=== PATIENT | male | born 1985 | race Asian ===

== ENCOUNTER 2017-02-15 10:57 | Inpatient (IN) | payer MEDICAID ==
--- NOTE | 2017-01-29 22:10 | NUR ---
PATIENT IS CURRENTLY RESTING IN BED I GAVE PATIENT HIS HS SNACK WILL CONTINUE TO MONITOR. Addendum: 02/19/17 at 0006 by Brandi Suarez LVN WRONG DATE ENTRY.
[~2017-02-15] VITALS: Ht 162.6 cm; Wt 86.2 kg
[2017-02-15 11:14] VITALS: BP 145/96
--- NOTE | 2017-02-15 11:25 | NUR ---
Patient ambulated to bed 06.
--- NOTE | 2017-02-15 11:25 | NUR ---
PT PRESENTS TO ER W/C/O COUGH AND INTERMITTENT SOB X3 WEEKS. PT STATES HE SMOKES 1 PACK OF CIGARETTES PER DAY. PT DENIES ANY OTHER MEDICAL HX. DENIES N/V/D; SKIN IS PINK/WARM/DRY; AAOX4 WITH EVEN AND STEADY GAIT; LUNGS CLEAR BL; HR EVEN AND REGULAR; PT DENIES ANY FEVER, CP, SOB, OR COUGH AT THIS TIME; PATIENT STATES HEAD ACHE PAIN OF 10/10 AT THIS TIME; VSS; PATIENT POSITIONED FOR COMFORT; HOB ELEVATED; BEDRAILS UP X2; BED DOWN. ER MD MADE AWARE OF PT STATUS.
--- NOTE | 2017-02-15 11:26 | NUR ---
Dr. Alford evaluating patient at bedside.
[2017-02-15] MEDS ORDERED: ALBUTEROL SULFATE/IPRATROPIU 3 ML SOL IH ONE ×2 (11:30)
--- NOTE | 2017-02-15 11:36 | NUR ---
RT at bedside to give patient breathing treatment and to perform ABG.
--- NOTE | 2017-02-15 11:40 | NUR ---
G DRAWN ON LR WITHOUT INCIDENT AND RESULTS GIVEN TO DR. HUGHES
[2017-02-15] MEDS ORDERED: methylPREDNISolone SS 125 MG/2 ML VIAL IVP ONE (12:20)
[2017-02-15] MEDS ORDERED: MAG SULF 2000 MG/WATER PREMIX 50 ML IV ONE (12:20)
[2017-02-15] MEDS ORDERED: cefTRIAXone 1,000 MG VIAL ONE (12:41)
[2017-02-15] MEDS ORDERED: ONDANSETRON 4 MG/2 ML VIAL IVP PRN (13:25)
[2017-02-15] MEDS ORDERED: MORPHINE SULFATE 2 MG/ML SYR IVP PRN (13:25)
[2017-02-15] MEDS ORDERED: HYDROcodone/APAP 5/325 MG 1 TAB TAB PO PRN (13:25)
[2017-02-15] MEDS ORDERED: ACETAMINOPHEN 325 MG TAB PO PRN (13:25)
[2017-02-15] MEDS ORDERED: ZOLPIDEM 5 MG TAB PO PRN (13:30)
[2017-02-15] MEDS ORDERED: LORazepam 1 MG TAB PO PRN (13:30)
[2017-02-15] MEDS ORDERED: ALBUTEROL SULFATE/IPRATROPIU 3 ML SOL IH PRN (13:30)
--- NOTE | 2017-02-15 13:43 | NUR ---
ELVIN BOX NOT READY FOR REPORT AT THIS TIME DOING WOUND CARE WILL CALL BACK IN 5 MINUTES
--- NOTE | 2017-02-15 13:57 | NUR ---
RECEIVED REPORT FROM THE ER NURSE. WILL BE COMING ON THE FLOOR SOON. WILL GET ROOM READY.
--- NOTE | 2017-02-15 13:57 | NUR ---
Patient will be admitted to care of DR SUAREZ. Admited to TELE. Will go to room 112A. Belongings list completed. Report to ELVIN GILLILAND.
--- NOTE | 2017-02-15 14:15 | NUR ---
PT ARRIVED ON UNIT ON GURNEY ACCOMPANIED BY ER NURSE. PT IS ALERT AND ORIENTED. PT HAS NC O2 AT 2L. V/S WNL. O2 SAT WAS AT 91. INCREASED O2 TO 5L. PT TOLERATING WELL. IV ON R AC 20G SL. PT IS AMBULATORY. NO SIGNS OF DISCOMFORT. SKIN INTACT. NASAL SWAB FOR MRSA DONE. PROVIDED WATER TO PT AND WILL ORDER A SANDWICH. EDUCATED PT REGARDING HARMFUL EFFECTS OF SMOKING, PT VERBALIZED UNDERSTANDING AND WILLINGNESS TO QUIT. WILL CONTINUE TO MONITOR.
[2017-02-15 15:00] VITALS: BP 140/72
[2017-02-15] MEDS: ALBUTEROL SULFATE/IPRATROPIU 3 ML SOL IH SCH ×3 (15:16→23:01)
--- NOTE | 2017-02-15 15:30 | NUR ---
FRIENDS BROUGHT FOOD, PT ATE. TOLERATED WELL. PT RESTING COMFORTABLY WITH FRIENDS AT BEDSIDE. DENIES SOB OR PAIN. CALL LIGHT WITHIN REACH. WILL CONTINUE TO MONITOR PT.
[2017-02-15 16:00] VITALS: BP 129/70
[2017-02-15] MEDS: NACL 0.9% 1,000 ML IV SCH (17:00)
[2017-02-15] MEDS ORDERED: NICOTINE TRANSD SYS 21 MG/24 HR PATCH TD SCH (17:00)
--- NOTE | 2017-02-15 17:24 | NUR ---
PT RESTING COMFORTABLY. REQUESTING MORE ICE WATER FOR DRY COUGH. DENIES PAIN. ALL NEEDS MET THIS TIME. CALL LIGHT WITHIN REACH. WILL CONTINUE TO MONITOR.
--- NOTE | 2017-02-15 19:25 | NUR ---
ENDORSED CARE OF PT TO APARTMENT MAINTENANCE SUPERVISOR NURSE AT BED SIDE IN STABLE CONDITION. PT RESTING IN BED WITH VISITORS.
--- NOTE | 2017-02-15 19:26 | NUR ---
RECEIVED PT IN STABLE CONDITION FROM ELVIN BOX. NO SOB, NO SIGNS OF DISTRESS. PT IS AOX4, AMBULATORY. SKIN IS INTACT. IV TO RT AC 20G PATENT, ASYMPTOMATIC, INTACT, IVF RUNNING. PT ON 4L 02 NC. VS STABLE. PT DENIES PAIN AT THIS TIME. PLAN OF CARE DISCUSSED WITH PT. SAFETY MEASURES IN PLACE. CALL LIGHT WITHIN REACH. WILL CONTINUE TO MONITOR. Addendum: 02/16/17 at 0125 by Elvira Pineda RN HR LING
[2017-02-15] MEDS: BUDESONIDE 0.25 MG/2 ML NEBU INH SCH (19:28)
[2017-02-15 20:00] VITALS: BP 136/72
[2017-02-15] MEDS ORDERED: ACETYLCYSTEINE 10% (100 MG/ML) 100 MG/ML VIAL INH PRN (20:35)
[2017-02-15] MEDS ORDERED: methylPREDNISolone SS 80 MG in WATER STERILE 1 ML IV SCH (21:00)
[2017-02-15] MEDS: MONTELUKAST SODIUM 10 MG TAB PO SCH (21:01)
[2017-02-15] MEDS: methylPREDNISolone SS 125 MG/2 ML VIAL IVP SCH (21:01)
--- NOTE | 2017-02-15 21:01 | NUR ---
PT TOLERATED DUE MEDS WELL. PT ON 4L O2 NC. FAMILY AT BEDSIDE. NO SOB, NO SIGNS OF DISTRESS. IV SITE ASYMPTOMATIC, INTACT, PATENT, IVF RUNNING. PT DENIES PAIN AT THIS TIME. PLAN OF CARE DISCUSSED WITH PT. SAFETY MEASURES IN PLACE. CALL LIGHT WITHIN REACH. WILL CONTINUE TO MONITOR.
[2017-02-16] VITALS: BP 138/69
--- NOTE | 2017-02-16 00:05 | NUR ---
HR TACHY, OTHER VS WNL ON ROOM AIR. NO SOB, NO SIGNS OF DISTRESS. IV SITE ASYMPTOMATIC, INTACT, PATENT, IVF RUNNING. PT DENIES PAIN OR SOB AT THIS TIME. PLAN OF CARE DISCUSSED WITH PT. SAFETY MEASURES IN PLACE. CALL LIGHT WITHIN REACH. WILL CONTINUE TO MONITOR.
[2017-02-16] MEDS: NACL 0.9% 1,000 ML IV SCH ×4 (02:02→21:20)
--- NOTE | 2017-02-16 02:14 | NUR ---
PT C/O SOB, RT PAGED, REQUESTED BREATHING TREATMENT AND OXIMIZER FOR PT. RT STATED THEY WILL COME AROUND 3. PLACED PT ON SIMPLE FACE MASK AT 6 LPM, O2 SAT IMPROVED. WILL CONTINUE TO MONITOR PT.
[2017-02-16] MEDS: ALBUTEROL SULFATE/IPRATROPIU 3 ML SOL IH SCH ×6 (02:38→23:12)
--- NOTE | 2017-02-16 02:38 | NUR ---
RT AT BEDSIDE, PLACED PT ON O2 6 LPM BY OXIMIZER, PTS O2 SAT IMPROVING. RT TO GIVE PT BREATHING TREATMENT AT THIS TIME.
--- NOTE | 2017-02-16 03:40 | NUR ---
HR TACHY, OTHER VS WNL. PT ON 6LPM OXIMIZER. NO SOB, NO SIGNS OF DISTRESS. IV SITE ASYMPTOMATIC, INTACT, PATENT, IVF RUNNING. PT DENIES PAIN AT THIS TIME. PLAN OF CARE DISCUSSED WITH PT. SAFETY MEASURES IN PLACE. CALL LIGHT WITHIN REACH. WILL CONTINUE TO MONITOR.
[2017-02-16 04:00] VITALS: BP 117/64
[2017-02-16] MEDS: methylPREDNISolone SS 125 MG/2 ML VIAL IVP SCH ×2 (04:15→12:42)
--- NOTE | 2017-02-16 06:26 | NUR ---
PT ASLEEP IN BED. PT ON 6LPM OXIMIZER. NO SOB, NO SIGNS OF DISTRESS. IV SITE ASYMPTOMATIC, INTACT, PATENT, IVF RUNNING. SAFETY MEASURES IN PLACE. CALL LIGHT WITHIN REACH. WILL CONTINUE TO MONITOR.
[2017-02-16] MEDS: BUDESONIDE 0.25 MG/2 ML NEBU INH SCH ×2 (06:51→19:42)
--- NOTE | 2017-02-16 07:26 | NUR ---
ENDORSED PT IN STABLE CONDITION TO ELVIN LITTLE. ALL NEEDS HAVE BEEN MET AT THIS TIME.
--- NOTE | 2017-02-16 07:41 | NUR ---
RECEIVED REPORT FROM AGNIESZKA OCONNOR FOR CONTINUITY OF CARE. PATIENT AWAKE A/OX4. O2 MAXIMIZER WITH 6L/NC . DENIES ANY PAIN. IV SITE RT AC GAUGE 20 INTACT AND PATENT. IVF INFUSING WELL. PLAN OF CARE DISCUSSED WITH THE PATIENT VITALS STABLE WILL CONTINUE TO MONITOR.
--- NOTE | 2017-02-16 07:53 | NUR ---
PATIENT HAS BEEN SCREENED AND CATEGORIZED LOW NUTRITION RISK. PATIENT WILL BE SEEN WITHIN 7 DAYS OF ADMISSION. 02/22/[address] Addendum: 02/17/17 at [address] DUE TO CHANGE IN PATIENT DIET, PATIENT HAS BEEN RESCREENED AND RECATEGORIZED MODERATE NUTRITION RISK. PATIENT WILL BE SEEN WITHIN 3-5 DAYS OF ADMISSION. 02/18/17-02/20/[address]
[2017-02-16 08:16] VITALS: BP 135/67
--- NOTE | 2017-02-16 09:00 | NUR ---
DUE MEDS GIVEN TOLERATED WELL. AMBULATE TO BATHROOM , SELF MORNING CARE GIVEN AT THIS TIME.
[2017-02-16] MEDS: NICOTINE TRANSD SYS 21 MG/24 HR PATCH TD SCH (09:16)
[2017-02-16] MEDS: DOCUSATE SODIUM 100 MG GELCAP PO SCH (09:17)
[2017-02-16 11:53] VITALS: BP 124/65
--- NOTE | 2017-02-16 12:00 | NUR ---
LUNCH SERVED GOOD APPETITE, NO DISTRESS NOTED AT THIS TIME.
--- NOTE | 2017-02-16 14:18 | NUR ---
RELAXED AND RESTING NO DISTRESS NOTED AT THIS TIME.
[2017-02-16 16:00] VITALS: BP 114/66
--- NOTE | 2017-02-16 16:00 | NUR ---
RESTING NO DISTRESS NOTED VITALS STABLE.
[2017-02-16] MEDS ORDERED: DEXTROSE 50% 50 ML SYR IVP PRN (17:50)
--- NOTE | 2017-02-16 18:27 | NUR ---
DINNER SERVED GOOD APPETITE , SAFETY MAINTAINED CALL LIGHT IN REACH
--- NOTE | 2017-02-16 19:00 | NUR ---
RECEIVED PT FROM ANABEL OCONNOR PT IS AAOX4 AMBULATORY ,RT IS HERE AND GIVE BREATHING TX PT ON TELEMETRY ST ,IV ON RT AC INFUSING WELL ON OXYMIZER 6 LTS/MINTS INITIAL ASSESSMENT DONE
[2017-02-16 20:00] VITALS: BP 127/65
[2017-02-16] MEDS ORDERED: methylPREDNISolone SS 40 MG in WATER STERILE 1 ML IV SCH (21:00)
[2017-02-16] MEDS: methylPREDNISolone SS 40 MG/ML VIAL IVP SCH (21:12)
[2017-02-16] MEDS: MONTELUKAST SODIUM 10 MG TAB PO SCH (21:12)
[2017-02-16] MEDS: BLOOD GLUCOSE MONITORING 1 DEV DEV FS SCH (21:15)
[2017-02-16] MEDS: INSULIN LISPRO SLIDING SCALE 100 UNITS/ML VIAL SUBQ PRN (21:16)
--- NOTE | 2017-02-16 21:30 | NUR ---
BLOOD SUGAR TEST 242 COVERAGE WITH 4 UNITS HUMALOG
[2017-02-17] VITALS: BP 117/77
--- NOTE | 2017-02-17 00:52 | NUR ---
PT SLEEPING WELL NOT DISTRESS NOTED ON TELEMETRY ST
[2017-02-17] MEDS: ALBUTEROL SULFATE/IPRATROPIU 3 ML SOL IH SCH ×6 (03:40→23:09)
[2017-02-17 04:00] VITALS: BP 96/51
--- NOTE | 2017-02-17 04:00 | NUR ---
SPONGE BATH IS GIVEN LINEN CHANGED PT RESTING ON BED SR ON TELEMETRY NOT SOB NOTED
[2017-02-17] MEDS: methylPREDNISolone SS 40 MG/ML VIAL IVP SCH ×2 (05:27→12:13)
[2017-02-17] MEDS: NACL 0.9% 1,000 ML IV SCH ×3 (05:51→23:43)
[2017-02-17] MEDS: BLOOD GLUCOSE MONITORING 1 DEV DEV FS SCH ×4 (05:56→20:55)
[2017-02-17] MEDS: INSULIN LISPRO SLIDING SCALE 100 UNITS/ML VIAL SUBQ PRN ×4 (05:59→20:55)
--- NOTE | 2017-02-17 06:29 | NUR ---
BLOOD SUGAR TEST 155 COVERAGE WITH2 UNITS REG INSULIN
--- NOTE | 2017-02-17 07:00 | NUR ---
PT AWAKE ALERT AND ORIENTED X4, NO SIGNS OF ACUTE DISTRESS, BREATHING EVEN AND UNLABORED BILATERALLY ON OXYMIZER 6L OXYGEN, ABDOMEN SOFT AND FLAT WITH BOWEL SOUNDS ACTIVE IN ALL FOUR QUADRANTS, BOWEL AND BLADDER CONTINENCE, AMBULATORY, SKIN INTACT, IV PATENT NO REDNESS, NO COMPLAINTS OF PAIN, BED IN LOW POSITION WITH BILATERAL HALF SIDE RAILS UP, CALL LIGHT WITHIN REACH.
[2017-02-17] MEDS: BUDESONIDE 0.25 MG/2 ML NEBU INH SCH ×2 (07:17→18:55)
--- NOTE | 2017-02-17 07:18 | NUR ---
AWAKE AND ALERT PATIENT C/O NASAL DRYNESS WITH SUPPLEMENTAL OXYGEN USE POST THERAPY ADDED HUMIDIFIER
[2017-02-17 08:00] VITALS: BP 125/67
[2017-02-17] MEDS: NICOTINE TRANSD SYS 21 MG/24 HR PATCH TD SCH ×2 (08:49→08:54)
[2017-02-17] MEDS: DOCUSATE SODIUM 100 MG GELCAP PO SCH (08:49)
[2017-02-17] MEDS: metFORMIN 500 MG TAB PO SCH (08:50)
[2017-02-17] MEDS ORDERED: AZITHROMYCIN 250 MG TAB PO SCH (09:00)
--- NOTE | 2017-02-17 09:20 | NUR ---
RECEIVED NEW ORDERS FROM DR. RAMON, CONSULT FOR DR. CRANE AND ENCOURAGE AMBULATION. PT MADE AWARE. NOTED AND CARRIED OUT.
--- NOTE | 2017-02-17 10:03 | NUR ---
RECEIVED NEW ORDERS FROM DR. RAMON, WILL CARRY OUT.
--- NOTE | 2017-02-17 11:18 | NUR ---
STAFF THERAPIST WITH RESPIRATORY STUDENT/[facility] ([facility]) DURING HHN THERAPY
[2017-02-17 16:00] VITALS: BP 126/73
--- NOTE | 2017-02-17 18:38 | NUR ---
PT AWAKE AND ALERT, NO SIGNS OF ACUTE DISTRESS. BREATHING EVEN AND UNLABORED, DENIES PAIN. BED IN LOW POSITION WITH BILATERAL HALF SIDE RAILS UP, CALL LIGHT WITHIN REACH. WILL ENDORSE TO HYDRATION PLANT OPERATOR NURSE FOR CONTINUITY OF CARE.
--- NOTE | 2017-02-17 19:30 | NUR ---
RECEIVED REPORT FROM DAY RN AT BEDSIDE, PATIENT IS AAOX4 RESTING IN BED, PATIENT RECEIVED BREATHING TX AND IS NOW ON 6L OXYGEN VIA OXYMIZER. PATIENT STATES HE HAS MILD SOB BUT FEELS OKAY. DENIES PAIN AT THIS TIME. IV TO RAC PATENT AND INTACT WITH IVF INFUSING WELL, SKIN INTACT, DISCUSSED PLAN OF CARE WITH PATIENT, PATIENT VERBALIZED UNDERSTANDING. SAFETY MEASURES CHECKED, CALL LIGHT WITHIN REACH. WILL CONTINUE TO MONITOR. VITAL SIGNS STABLE.
[2017-02-17] MEDS: MONTELUKAST SODIUM 10 MG TAB PO SCH (20:51)
--- NOTE | 2017-02-17 20:55 | NUR ---
PM MEDS ADMINISTERED, PATIENT TOLERATED WELL, BS CHECK 164, NO SOB OR SIGN OF DISTRESS AT THIS TIME, CALL LIGHT WITHIN REACH. WILL CONTINUE TO MONITOR.
[2017-02-18] VITALS: BP 115/59
--- NOTE | 2017-02-18 | NUR ---
VITAL SIGNS STABLE, PATIENT RESTING IN BED AWAKE, NO SOB OR SIGN OF DISTRESS AT THIS TIME, CALL LIGHT WITHIN REACH. WILL CONTINUE TO MONITOR.
--- NOTE | 2017-02-18 02:30 | NUR ---
PATIENT SLEEPING, NO SOB OR SIGN OF DISTRESS, CALL LIGHT WITHIN REACH WILL CONTINUE TO MONITOR.
[2017-02-18] MEDS: ALBUTEROL SULFATE/IPRATROPIU 3 ML SOL IH SCH ×6 (03:13→23:00)
--- NOTE | 2017-02-18 04:35 | NUR ---
PATIENT SLEEPING, NO SOB OR SIGN OF DISTRESS AT THIS TIME, CALL LIGHT WITHIN REACH. WILL CONTINUE TO MONITOR.
[2017-02-18] MEDS: BLOOD GLUCOSE MONITORING 1 DEV DEV FS SCH ×4 (06:33→20:32)
[2017-02-18] MEDS: BUDESONIDE 0.25 MG/2 ML NEBU INH SCH ×2 (07:12→19:24)
--- NOTE | 2017-02-18 07:24 | NUR ---
ENDORSED PATIENT TO DAY RN AT BEDSIDE, PATIENT IN STABLE CONDITION.
[2017-02-18] MEDS ORDERED: methylPREDNISolone SS 40 MG/ML VIAL IVP SCH (07:30)
[2017-02-18 08:00] VITALS: BP 126/77
--- NOTE | 2017-02-18 08:00 | NUR ---
RECEIVED PT ON ROOM AIR, SPO2 90-91% PT PLACED ON 3L NASAL CANNULA. BEDSIDE AND AWARE .
[2017-02-18] MEDS: NACL 0.9% 1,000 ML IV SCH ×2 (08:03→13:58)
[2017-02-18] MEDS: metFORMIN 500 MG TAB PO SCH (08:35)
[2017-02-18] MEDS: DOCUSATE SODIUM 100 MG GELCAP PO SCH (08:35)
[2017-02-18] MEDS: AZITHROMYCIN 250 MG TAB PO SCH (08:36)
[2017-02-18] MEDS: NICOTINE TRANSD SYS 21 MG/24 HR PATCH TD SCH (08:52)
[2017-02-18] MEDS: INSULIN LISPRO SLIDING SCALE 100 UNITS/ML VIAL SUBQ PRN ×3 (11:34→20:36)
[2017-02-18] MEDS: methylPREDNISolone SS 40 MG/ML VIAL IVP SCH ×2 (12:04→20:59)
[2017-02-18 15:43] VITALS: BP 122/68
--- NOTE | 2017-02-18 18:55 | NUR ---
ALERT AND AWAKE, NO SIGNS OF ACUTE DISTRESS, ENDORSED TO WAITER NURSE FOR CONTINUITY OF CARE.
--- NOTE | 2017-02-18 19:00 | NUR ---
PATIENT IS CURRENTLY AWAKE ALERT ORIENTED RESTING IN BED FAMILY AT BEDSIDE PATIENT DENIES PAIN AND DISCOMFORT AT THIS TIME.PATIENT IS ABOUT TO GET A BREATHING TREATMENT.CALL LIGHT WITHIN REACH WILL CONTINUE TO MONITOR.
--- NOTE | 2017-02-18 20:00 | NUR ---
Patient's Plan of Care was discussed and reviewed with CONTRACT DRIVER: MOE BAUTISTA
[2017-02-18] MEDS: MONTELUKAST SODIUM 10 MG TAB PO SCH (20:22)
--- NOTE | 2017-02-18 22:10 | NUR ---
PATIENT IS CURRENTLY RESTING IN BED I GAVE PATIENT HIS HS SNACK WILL CONTINUE TO MONITOR.
--- NOTE | 2017-02-18 22:22 | NUR ---
MD YARBROUGH CAME AND WAS GIVEN AN UPDATE ON THE PATIENT AND HE MADE ROUNDS AND SAW THE PATIENT.
[2017-02-19 00:32] VITALS: BP 115/72
--- NOTE | 2017-02-19 00:32 | NUR ---
PATIENT IS CURRENTLY AWAKE ON HIS PHONE SMILING,IVF INFUSING WELL IV SITE PATENT NEEDS MET.PATIENT DENIES PAIN AND DISCOMFORT.CALL LIGHT WITHIN REACH WILL CONTINUE TO MONITOR.
[2017-02-19] MEDS: NACL 0.9% 1,000 ML IV SCH ×3 (01:43→17:30)
--- NOTE | 2017-02-19 02:54 | NUR ---
PATIENT DOING WELL RESTING IN BED CALL LIGHT WITHIN REACH WILL CONTINUE TO MONITOR.
[2017-02-19] MEDS: ALBUTEROL SULFATE/IPRATROPIU 3 ML SOL IH SCH ×6 (03:53→23:08)
--- NOTE | 2017-02-19 04:05 | NUR ---
PATIENT IS CURRENTLY SLEEPING ON AN OFF GETTING A BREATHING TREATMENT WILL CONTINUE TO MONITOR.CALL LIGHT WITHIN REACH WILL CONTINUE TO MONITOR.
[2017-02-19] MEDS: methylPREDNISolone SS 40 MG/ML VIAL IVP SCH ×3 (05:40→20:23)
--- NOTE | 2017-02-19 06:34 | NUR ---
PATIENT IS CURRENTLY AWAKE ALERT RESTING IN BED.PATIENT DENIES PAIN AND DISCOMFORT.IVF INFUSING WELL IV SITE PATENT.WILL CONTINUE TO MONITOR.
[2017-02-19] MEDS: BLOOD GLUCOSE MONITORING 1 DEV DEV FS SCH ×4 (06:39→21:30)
[2017-02-19] MEDS: INSULIN LISPRO SLIDING SCALE 100 UNITS/ML VIAL SUBQ PRN ×4 (06:41→21:48)
--- NOTE | 2017-02-19 06:44 | NUR ---
PATIENT AMBULATES WELL TO THE BATHROOM AND BACK TO BED AND ENCOURAGED TO USE INCENTIVE SPIROMETER BREATHING EXERCISES PATIENT VERBALIZES UNDERSTANDING.
[2017-02-19] MEDS: BUDESONIDE 0.25 MG/2 ML NEBU INH SCH ×2 (07:04→19:13)
--- NOTE | 2017-02-19 07:28 | NUR ---
PATIENT STABLE REPORT ENDORSED AT BEDSIDE TO ELVIN WALLACE.
--- NOTE | 2017-02-19 07:29 | NUR ---
RECEIVED PT AWAKE AND SITTING ON BED WATCHING TV, AAOX4 WITH O2 AT 4LPM VIA NC, SKIN IS INTACT. WITH IV ACCESS AT LEFT WRIST G22 INFUSING FLUIDS WELL. DISCUSSED PLAN OF CARE, PT VERBALIZED UNDERSTANDING. SAFETY PRECAUTIONS ENFORCED. CALL LIGHT WITHIN REACH, WILL CONTINUE TO MONITOR
[2017-02-19 08:00] VITALS: BP 128/70
[2017-02-19] MEDS: metFORMIN 500 MG TAB PO SCH (08:55)
[2017-02-19] MEDS: NICOTINE TRANSD SYS 21 MG/24 HR PATCH TD SCH (09:00)
[2017-02-19] MEDS: DOCUSATE SODIUM 100 MG GELCAP PO SCH (09:00)
[2017-02-19] MEDS: AZITHROMYCIN 250 MG TAB PO SCH (09:02)
--- NOTE | 2017-02-19 09:08 | NUR ---
PT REFUSED NICOTINE PATCH. EDUCATED RE: BENEFITS OF NICOTINE PATCH, PT STILL DECLINED
--- NOTE | 2017-02-19 11:20 | NUR ---
PT AWAKE SITTING ON BED WATCHING TV. NO COMPLAINTS AT THIS TIME. ALL NEEDS ATTENDED, WILL CONTINUE TO MONITOR.
--- NOTE | 2017-02-19 11:55 | NUR ---
02/19/17 RD INITIAL ASSESSMENT COMPLETED PLEASE REFER TO NUTRITION ASSESSMENT UNDER CARE ACTIVITY FOR ESTIMATED NUTRITIONAL NEEDS. RD RECOMMENDATIONS: 1. CONTINUE ON CCHO 60 GM DIET APPROPRIATE. 2. RD WILL F/U 5-7 DAYS; LOW RISK. JUSTUS NARAYANAN MS, RDN
--- NOTE | 2017-02-19 13:40 | NUR ---
PT ASLEEP, NO S/S OF DISTRESS NOTED. WILL CONTINUE TO MONITOR.
--- NOTE | 2017-02-19 15:21 | NUR ---
PT ASLEEP, NO S/S OF RESPIRATORY DISTRESS NOTED. CALL LIGHT WITHIN REACH, WILL CONTINUE TO MONITOR.
[2017-02-19 16:00] VITALS: BP 123/74
--- NOTE | 2017-02-19 17:45 | NUR ---
PT ASLEEP BUT EASILY AROUSABLE. IV FLUID BAG CHANGED. WILL CONTINUE TO MONITOR.
--- NOTE | 2017-02-19 19:35 | NUR ---
PT ENDORSED TO NIGHT NURSE IN STABLE CONDITION FOR CONTINUITY OF CARE
--- NOTE | 2017-02-19 19:36 | NUR ---
PATIENT IS CURRENTLY AWAKE ALERT SITTING UP IN BED.VITALS SIGNS STABLE 02SAT 100% PATIENT GOT A BREATHING TREATMENT EARLIER.PATIENT DENIES ANY PAIN.NEEDS MET WILL CONTINUE TO MONITOR.CALL LIGHT WITHIN REACH.
--- NOTE | 2017-02-19 19:56 | NUR ---
Patient's Plan of Care was discussed and reviewed with STATION ATTENDANT: MOE Tate
[2017-02-19 20:30] VITALS: BP 117/65
[2017-02-19] MEDS: MONTELUKAST SODIUM 10 MG TAB PO SCH (20:37)
--- NOTE | 2017-02-19 20:37 | NUR ---
EDUCATION GIVEN ON ROUTINE MEDICATIONS PT VERBALIZES UNDERSTANDING AND TOOK HIS MEDS.
--- NOTE | 2017-02-19 21:51 | NUR ---
PATIENT CURRENTLY RESTING IN BED AT THIS TIME LISTENING TO MUSIC NEEDS MET.PT COMFORTABLE HS SNACK HAS BEEN GIVEN TO THE PATIENT.
[2017-02-20 00:05] VITALS: BP 124/81
--- NOTE | 2017-02-20 00:15 | NUR ---
PATIENT IS CURRENTLY AWAKE RESTING IN BED LISTENING TO MUSIC.IVF INFUSING WELL IV SITE PATENT NEEDS MET.WILL CONTINUE TO MONITOR.CALL LIGHT WITHIN REACH.
[2017-02-20] MEDS: NACL 0.9% 1,000 ML IV SCH ×2 (02:16→10:33)
--- NOTE | 2017-02-20 02:18 | NUR ---
PATIENT SLEEPING IN BED,NO DISTRESS WILL CONTINUE TO MONITOR URINAL EMPTIED.CALL LIGHT WITHIN REACH.
[2017-02-20] MEDS: ALBUTEROL SULFATE/IPRATROPIU 3 ML SOL IH SCH ×4 (02:24→14:49)
--- NOTE | 2017-02-20 04:20 | NUR ---
PATIENT SLEEPING COMFORTABLY IN BED IN NO DISTRESS.
[2017-02-20] MEDS: methylPREDNISolone SS 40 MG/ML VIAL IVP SCH ×2 (04:39→12:53)
[2017-02-20] MEDS: BLOOD GLUCOSE MONITORING 1 DEV DEV FS SCH ×2 (06:08→11:37)
[2017-02-20] MEDS: INSULIN LISPRO SLIDING SCALE 100 UNITS/ML VIAL SUBQ PRN ×2 (06:25→11:40)
--- NOTE | 2017-02-20 06:30 | NUR ---
PATIENT SLEEPING IN NO DISTRESS IVF INFUSING WELL IV SITE PATENT.CALL LIGHT WITHIN REACH WILL CONTINUE TO MONITOR.
--- NOTE | 2017-02-20 07:10 | NUR ---
RECEIVED REPORT AT BEDSIDE BY NIGHT NURSE. PT IS AAOX4. PT IS CURRENTLY RECEIVING A BREATHING TX. PT SHOWS NO S/S OF DISTRESS. PT DENIES PAIN. PT SKIN IS INTACT. IV NOTED ON THE L HAND PATENT AND INTACT. WILL CONTINUE TO MONITOR.
[2017-02-20] MEDS: BUDESONIDE 0.25 MG/2 ML NEBU INH SCH (07:17)
--- NOTE | 2017-02-20 07:20 | NUR ---
PT IS CURRENTLY RESTING IN BED STABLE REPORT ENDORSED TO ELVIN CARBAJAL AND ELVIN RYAN.
[2017-02-20 08:00] VITALS: BP 119/78
--- NOTE | 2017-02-20 08:40 | NUR ---
ADMINISTERED SCHEDULED MEDICATIONS. PT TOLERATED WELL. PT ON 4L HUMIDIFIED AIR VIA NASAL CANNULA. PT SHOWS NO S/S OF DISTRESS. PT DOES NOT HAVE SOB. WILL CONTINUE TO MONITOR.
[2017-02-20] MEDS: AZITHROMYCIN 250 MG TAB PO SCH (08:46)
[2017-02-20] MEDS: DOCUSATE SODIUM 100 MG GELCAP PO SCH (08:46)
[2017-02-20] MEDS: metFORMIN 500 MG TAB PO SCH (08:46)
[2017-02-20] MEDS: NICOTINE TRANSD SYS 21 MG/24 HR PATCH TD SCH ×2 (08:46→08:53)
--- NOTE | 2017-02-20 11:15 | NUR ---
PT IN ROOM WITH RT AT BEDSIDE. PT IS CURRENTLY GETTING A BREATHING TX. PT IS TOLERATING WELL.
--- NOTE | 2017-02-20 13:00 | NUR ---
ADMINISTERED SCHEDULED MEDICATION. PT ON ROOM AIR AND SHOWS NO S/S OF DISTRESS. PT RESTING WATCHING TV. WILL CONTINUE TO MONITOR.
[2017-02-20] MEDS ORDERED: SINGULAIR10 MG PO (13:26)
[2017-02-20] MEDS ORDERED: METFORMIN HCL500 MG PO (13:26)
[2017-02-20] MEDS ORDERED: AZITHROMYCIN250 MG PO (13:26)
[2017-02-20] MEDS ORDERED: PULMICORT90 MCG/Act IH (13:26)
[2017-02-20] MEDS ORDERED: PROVENTIL HFA M18 GM INH (13:26)
--- NOTE | 2017-02-20 15:30 | NUR ---
PT HAS BEEN DISCHARGED. ALL PAPERWORK SIGNED. ALL QUESTIONS ANSWERED. ALL BELONGINGS AND PRESCRIPTIONS IN PT POSSESSION. IV DISCONTINUED INTACT. WRISTBANDS REMOVED. PT AMB OFF UNIT WITH STEADY GAIT WITH FAMILY MEMBER AT SIDE. PT IN STABLE CONDITION.
== END 2017-02-20 15:30 | disposition home or self-care (01) | DRG 139 ==
LOC: MED 10:57 → MTU 13:23
PROVIDERS: ADMIT Family Medicine; ATTEND Family Medicine
DX: J18.9 Pneumonia, unspecified organism (principal); J96.21 Acute and chronic respiratory failure with hypoxia; N17.0 Acute kidney failure with tubular necrosis; J44.0 Chronic obstructive pulmonary disease with (acute) lower respiratory infection; J45.901 Unspecified asthma with (acute) exacerbation; E11.65 Type 2 diabetes mellitus with hyperglycemia; J44.1 Chronic obstructive pulmonary disease with (acute) exacerbation; E86.0 Dehydration; E78.5 Hyperlipidemia, unspecified; J20.9 Acute bronchitis, unspecified; E66.9 Obesity, unspecified; F17.219 Nicotine dependence, cigarettes, with unspecified nicotine-induced disorders; D72.829 Elevated white blood cell count, unspecified; Z68.32 Body mass index [BMI] 32.0-32.9, adult; Z71.3 Dietary counseling and surveillance; Z71.6 Tobacco abuse counseling

== ENCOUNTER 2021-07-13 13:24 | Inpatient (IN) | payer MEDICAID, SELFPAY ==
[~2021-07-13] VITALS: Ht 172.7 cm; Wt 85.3 kg
[~2021-07-13 13:24] MED LIST: ALBU0.0912 INH; AZIT250T11 PO; BUDE90PO IH; METF-988 PO; MONT10TA35 PO
[2021-07-13 13:25] VITALS: BP 123/78
--- NOTE | 2021-07-13 13:25 | NUR ---
36 YO MALE BIBS C/O WHEEZING, DIFFICULTY BREATHING X1WEEK. PLACED ON MONITOR AND DESAT TO 79%, PLACED ON 2L NC, O2 SAT NOW 95%. PATIENT PRESENTS LABORED BREATHING AND DIAPHORETIC. LUNG SOUNDS INS/EXP WHEEZING. PATIENT STATES HE HAS BEEN ADM PREVIOUSLY FOR ASTHMA EXACERBATION. A&OX4, PLACED ON MONITOR FOR CONT OBSERVATION. PMH: ASTHMA, DM NKDA
--- NOTE | 2021-07-13 13:35 | NUR ---
MD AT BEDSIDE EVALUATING PATIENT.
[2021-07-13] MEDS ORDERED: ALBUTEROL SULFATE/IPRATROPIU 3 ML SOL IH ONE ×3 (13:41→13:55)
--- NOTE | 2021-07-13 13:42 | NUR ---
HHN THERAPY AND RESPIRATORY DRUG GIVEN ORDERED
[2021-07-13] MEDS ORDERED: methylPREDNISolone SS 125 MG in WATER STERILE 2 ML IV ONE (13:50)
--- NOTE | 2021-07-13 13:53 | NUR ---
POST HHN THERAPY PLACED BACK ON SUPPLEMENTAL OXYGEN AT 3 LPM VIA KYLIE HOOK/RN NOTIFIED
[2021-07-13] MEDS ORDERED: methylPREDNISolone SS 125 MG/2 ML VIAL ONE (13:59)
[2021-07-13] MEDS ORDERED: WATER STERILE 10 ML MC ONE (13:59)
--- NOTE | 2021-07-13 14:15 | NUR ---
SOLUMEDROL GIVEN IVP PER MD ORDER AT THIS TIME.
[2021-07-13] MEDS ORDERED: ALBUTEROL 0.083% 2.5 MG/3 ML NEBU INH ONE (14:30)
--- NOTE | 2021-07-13 14:31 | NUR ---
FOLLOW UP HHN THERAPY AND RESPIRATORY DRUGS GIVEN ORDERED ENCOURAGED INTERMITTENT DEEP BREATHING DURING THERAPY
[2021-07-13] MEDS ORDERED: PRED20TA5 PO (14:38)
[2021-07-13] MEDS ORDERED: AZIT250T4 PO (14:38)
[2021-07-13] MEDS ORDERED: ALBU0.0912 IH (14:38)
--- NOTE | 2021-07-13 16:10 | NUR ---
ATTEMPTED TO DC PATIENT BUT UNSTABLE FOR DISCHARGE.
[2021-07-13 16:52] LABS: BASOPHILS % (AUTO) 0.3 % (0.0-2.0); EOSINOPHILS # (AUTO) 0.1 K/uL (0-0.4); EOSINOPHILS % (AUTO) 1.1 % (0.0-4.0); HEMATOCRIT 48.5 % (36-52); HEMOGLOBIN 15.7 g/dL (12.0-18.0); LYMPHOCYTES # (AUTO) 0.8 K/uL (2.0-11.5); LYMPHOCYTES % (AUTO) 6.6 % (20.5-51.1); MEAN CORPUSCULAR HEMOGLOBIN 25 pg (27-31); MEAN CORPUSCULAR HGB CONC 33 g/dL (33-37); MONOCYTES # (AUTO) 0.1 K/uL (0.8-1.0); MONOCYTES % (AUTO) 1.2 % (1.7-9.3); NEUTROPHILS # (AUTO) 10.4 K/uL (1.8-7.7); NEUTROPHILS % (AUTO) 90.8 % (42.2-75.2); PLATELET COUNT (AUTO) 337 K/uL (140-450); RED BLOOD CELL COUNT(AUTO) 6.22 MIL/uL (4.20-6.10); RED CELL DISTRIBUTION WIDTH 14.1 % (11.6-13.7); WHITE BLOOD COUNT (AUTO) 11.4 K/uL (4.8-10.8)
[2021-07-13 17:14] LABS: ALBUMIN 3.7 g/dL (3.4-5.0); CARBON DIOXIDE 22.2 mmol/L (21-32); CREATININE 0.8 mg/dL (0.6-1.3); POTASSIUM 4.2 mmol/L (3.5-5.1); TOTAL BILIRUBIN 0.8 mg/dL (0.0-1.0)
--- NOTE | 2021-07-13 18:21 | NUR ---
YANI BIANCHI, INFLUENZA A/B, RSV SAMPLES COLLECTED AND WALKED TO LAB.
[2021-07-13] MEDS ORDERED: HYDROcodone/APAP 7.5/325 MG 1 TAB PO PRN (19:10)
[2021-07-13] MEDS ORDERED: ZOLPIDEM 5 MG TAB PO PRN (19:10)
[2021-07-13] MEDS ORDERED: ACETAMINOPHEN 325 MG TAB PO PRN (19:10)
[2021-07-13] MEDS ORDERED: ALBUTEROL SULFATE/IPRATROPIU 3 ML SOL IH PRN (19:10)
[2021-07-13] MEDS ORDERED: POTASSIUM CHLORIDE 10 MEQ TABER PO PRN (19:10)
[2021-07-13] MEDS ORDERED: guaiFENesin DM 200/20 MG-10 ML 10 ML UDC PO PRN (19:10)
[2021-07-13] MEDS ORDERED: DOCUSATE SODIUM 100 MG GELCAP PO PRN (19:10)
[2021-07-13] MEDS ORDERED: ONDANSETRON 4 MG/2 ML VIAL IM/IVP PRN (19:10)
[2021-07-13] MEDS ORDERED: FAMOTIDINE 20 MG/2 ML VIAL IV SCH (19:15)
--- NOTE | 2021-07-13 19:30 | NUR ---
REPORT AND CONTINUATION OF CARE GIVEN TO KALI ELVIN
[2021-07-13] MEDS ORDERED: cefTRIAXone 1,000 MG VIAL ONE (19:35)
[2021-07-13 19:59] LABS: CHOL/HDL RATIO 6.4 (1-4.5); FREE T4 (FREE THYROXINE) 1.24 ng/dL (0.76-1.46); MAGNESIUM 1.9 mg/dL (1.8-2.4); PHOSPHORUS 3.9 mg/dL (2.5-4.9); THYROID STIMULATING HORMONE 0.76 uIU/mL (0.34-3.74)
--- NOTE | 2021-07-13 20:00 | NUR ---
PATIENT SITTING IN BED LOCKED IN LOWEST POSITION W X2 SIDERAILS UP FOR PATIENT SAFETY. PATIENT REPORTS SOB. PATIENT DENIES ANY PAIN OR OTHER SYMPTOMS. PATIENT PRESENTS TACHYPNEIC W LABORED BREATHING. WHEEZING AUSCULTATED THROUGHOUT LUNG BOATENG. PATIENT CONNECTED TO MONITOR W VSS. PATIENT ON 3L NC O2 SAT 95%. PATIENT ABLE TO SPEAK IN FULL SENTENCES. NAD NOTED, WILL CONTINUE TO MONITOR.
--- NOTE | 2021-07-13 20:40 | NUR ---
RT AT BEDSIDE FOR PATIENT BREATHING TREATMENT.
--- NOTE | 2021-07-13 20:55 | NUR ---
PATIENT AMBULATED TO BATHROOM W STEADY GAIT.
[2021-07-13 20:56] LABS: PROTHROMBIN TIME 9.6 secs (10.8-13.4)
[2021-07-13 21:28] LABS: APPEARANCE,URINE CLEAR (CLEAR); BILIRUBIN,URINE NEGATIVE (NEGATIVE); BLOOD, URINE TRACE-I (NEGATIVE); COLOR,URINE YELLOW (YELLOW); LEUKOCYTE ESTERASE ,URINE NEGATIVE (NEGATIVE); NITRITE, URINE NEGATIVE (NEGATIVE); PH,URINE 5.5 (5.0-9.0); UGLUCOSE 3+ (NEGATIVE)
[2021-07-13 21:48] LABS: BARBITURATE, URINE NEGATIVE ng/ml (NEG <=200); BENZODIAZEPINE, URINE NEGATIVE ng/mL (NEG <=200); CANNABINOID, URINE NEGATIVE ng/mL (NEG <=50); COCAINE, URINE NEGATIVE ng/mL (NEG <=300); OPIATE, URINE NEGATIVE ng/mL (NEG <=2000); PHENCYCLIDINE SCREEN,URINE NEGATIVE ng/mL (NEG <=25)
--- NOTE | 2021-07-13 21:50 | NUR ---
PATIENT SITTING IN BED LOCKED IN LOWEST POSITION W X2 SIDERAILS UP FOR PATIENT SAFETY. PATIENT REPORTS SOB. PATIENT DENIES ANY PAIN OR OTHER SYMPTOMS. PATIENT BREATHING EVEN AND UNLABORED. PATIENT ON 3L NC O2 SAT 96%. PATIENT ABLE TO SPEAK IN FULL SENTENCES. NAD NOTED, WILL CONTINUE TO MONITOR.
[2021-07-13] MEDS: NACL 0.9% 1,000 ML IV SCH (21:57)
--- NOTE | 2021-07-13 21:57 | NUR ---
REPORT GIVEN TO ELVIN LEE FOR TRANSFER OF PATIENT CARE AT THIS TIME.
[2021-07-13] MEDS: MONTELUKAST SODIUM 10 MG TAB PO SCH ×2 (22:00→23:00)
[2021-07-13] MEDS: methylPREDNISolone SS 40 MG/ML VIAL IVP SCH (22:17)
--- NOTE | 2021-07-13 22:20 | NUR ---
SINGULAIR MEDICATION NOT AVAILABLE IN ER.
--- NOTE | 2021-07-13 22:48 | NUR ---
Patient will be admitted to care of . Admited to MED/SURG. Will go to room 117. Belongings list completed. Report to ELVIN LEE.
--- NOTE | 2021-07-13 22:55 | NUR ---
PATIENT WAS RECEIVED VIA RMOUNT CARMEL FROM ER, ALERT AND ORIENTED X 4, VERBAL TO HIS NEEDS, DX: ASTHMA ON 3LPM VIA NC, WITH LEFT WRIST IV ACCESS RUNNING NSS AT 100 ML/HOUR.
--- NOTE | 2021-07-13 23:30 | NUR ---
PATIENT SWAB FOR MRSA WAS OBTAINED TOLERATED WELL, DUE MEDICATION SINGULAIR WAS ALSO GIVEN BY MOUTH.
--- NOTE | 2021-07-14 | NUR ---
ADMISSION IN PROGRESS, INITIATED AND ENCOURAGE THE PATIENT TO GET CONSULTATION ON SMOKING CESSATION PROGRAM. BUT PATIENT DENIES .
[2021-07-14] MEDS: ALBUTEROL SULFATE/IPRATROPIU 3 ML SOL IH SCH ×4 (00:40→20:36)
--- NOTE | 2021-07-14 03:00 | NUR ---
PATIENT WAS ASLEEP AT THIS TIME,
[2021-07-14 04:00] VITALS: BP 99/65
--- NOTE | 2021-07-14 04:00 | NUR ---
V/S WNL ASLEEP STILL.
[2021-07-14] MEDS: NACL 0.9% 1,000 ML IV SCH ×2 (05:10→15:10)
[2021-07-14] MEDS: methylPREDNISolone SS 40 MG/ML VIAL IVP SCH ×3 (05:59→21:19)
--- NOTE | 2021-07-14 07:10 | NUR ---
RECEIVE REPORT FROM PRINCIPAL SECRETARY NURSE FOR CONTINUITY OF CARE. PATIENT SLEEPING. PATIENT ON 3 L NC. NO DISTRESS NOTED.ALL SAFETY MEASURES IN PLACE. CALL LIGHT WITHIN REACH. WILL CONTINUE TO MONITOR.
[2021-07-14 07:11] LABS: BASOPHILS % (AUTO) 0.5 % (0.0-2.0); EOSINOPHILS % (AUTO) 0.1 % (0.0-4.0); HEMATOCRIT 45.7 % (36-52); HEMOGLOBIN 15.2 g/dL (12.0-18.0); LYMPHOCYTES # (AUTO) 2.3 K/uL (2.0-11.5); LYMPHOCYTES % (AUTO) 24.7 % (20.5-51.1); MEAN CORPUSCULAR HEMOGLOBIN 25 pg (27-31); MEAN CORPUSCULAR HGB CONC 33 g/dL (33-37); MEAN CORPUSCULAR VOLUME 76.4 fL (80-94); MONOCYTES # (AUTO) 0.4 K/uL (0.8-1.0); MONOCYTES % (AUTO) 4.2 % (1.7-9.3); NEUTROPHILS # (AUTO) 6.5 K/uL (1.8-7.7); NEUTROPHILS % (AUTO) 70.5 % (42.2-75.2); PLATELET COUNT (AUTO) 341 K/uL (140-450); RED BLOOD CELL COUNT(AUTO) 5.98 MIL/uL (4.20-6.10); RED CELL DISTRIBUTION WIDTH 13.8 % (11.6-13.7); WHITE BLOOD COUNT (AUTO) 9.2 K/uL (4.8-10.8)
[2021-07-14 07:15] LABS: ANION GAP 18.3 (8-16); CARBON DIOXIDE 21.4 mmol/L (21-32); CREATININE 0.7 mg/dL (0.6-1.3); POTASSIUM 4.7 mmol/L (3.5-5.1)
--- NOTE | 2021-07-14 07:40 | NUR ---
ALL REPORTS WERE GIVEN , TRANSFER OF CARE ENDORSED.
[2021-07-14 08:00] VITALS: BP 103/67
[2021-07-14 08:08] LABS: T4 (THYROXINE) 10.8 ug/dL (4.5-12.0)
[2021-07-14] MEDS: metFORMIN 500 MG TAB PO SCH (08:24)
[2021-07-14] MEDS: LORATADINE 10 MG TAB PO SCH (08:24)
[2021-07-14] MEDS: predniSONE 20 MG TAB PO SCH (08:24)
[2021-07-14] MEDS: PANTOPRAZOLE 40 MG TABEC PO SCH (08:25)
[2021-07-14] MEDS: AZITHROMYCIN 250 MG TAB PO SCH (08:25)
--- NOTE | 2021-07-14 08:32 | NUR ---
PATIENT AWAKE AND ALERT. NO ACUTE DISTRESS NOTED. PATIENT ON 3 L NC SATING O2 97%. SCHEDULED MEDICATION GIVEN. ALL SAFETY MEASURES IN PLACE. CALL LIGHT WITHIN REACH. WILL CONTINUE TO MONITOR.
[2021-07-14] MEDS ORDERED: predniSONE 20 MG TAB PO SCH (09:00)
--- NOTE | 2021-07-14 09:02 | NUR ---
PATIENT HAS BEEN SCREENED AND CATEGORIZED LOW NUTRITION RISK. PATIENT WILL BE SEEN WITHIN 7 DAYS OF ADMISSION. 07/20/[address]
--- NOTE | 2021-07-14 10:30 | NUR ---
PATIENT AWAKE AND ALERT. NO ACUTE DISTRESS NOTED. PATIENT ON 3 L NC. PATIENT O2 SATING AT 97%. ALL SAFETY MEASURES IN PLACE. CALL LIGHT WITHIN REACH. WILL CONTINUE TO MONITOR.
--- NOTE | 2021-07-14 12:17 | NUR ---
PATIENT SLEEPING. NO ACUTE DISTRESS NOTED. PATIENT ON 3 L NC. PATIENT SATING AT 97% O2. ALL SAFETY MEASURES IN PLACE. CALL LIGHT WITHIN REACH WILL CONTINUE TO MONITOR.
--- NOTE | 2021-07-14 14:48 | NUR ---
PATIENT AWAKE AND ALERT. NO ACUTE DISTRESS NOTED. PATIENT ON 3 L NC. PATIENT SATING AT 98% O2. PATIENT REQUEST FOR LONGER NC TUBBING RT NOTIFIED. ALL SAFETY MEASURES IN PLACE. CALL LIGHT WITHIN REACH WILL CONTINUE TO MONITOR
[2021-07-14 16:00] VITALS: BP 129/83
--- NOTE | 2021-07-14 16:17 | NUR ---
PATIENT SLEEPING. NO ACUTE DISTRESS NOTED. PATIENT ON 3 L NC. PATIENT SATING AT 96% O2. ALL SAFETY MEASURES IN PLACE. CALL LIGHT WITHIN REACH WILL CONTINUE TO MONITOR
--- NOTE | 2021-07-14 18:11 | NUR ---
PATIENT AWAKE AND ALERT. NO ACUTE DISTRESS NOTED. PATIENT ON 3 L NC. PATIENT SATING AT 97% O2. PATIENT WATCHING TV. ALL SAFETY MEASURES IN PLACE. CALL LIGHT WITHIN REACH WILL CONTINUE TO MONITOR.
--- NOTE | 2021-07-14 19:15 | NUR ---
ENDORSED TO BOAT ENGINES INSTALLER NURSE FOR CONTINUITY OF PATIENT CARE. PATIENT STABLE. ALL SAFETY MEASURES IN PLACE.
--- NOTE | 2021-07-14 19:30 | NUR ---
RECEIVED REPORT FROM RN DAYSHIFT NURSE AT BEDSIDE FOR CONTINUITY OF CARE, PT IN STABLE CONDITION.
--- NOTE | 2021-07-14 20:20 | NUR ---
PT SITTING UP IN BED AOX4 ON ROOM AIR. HE HAS A 22G ON LEFT WRIST RUNNING 100MLS/NORMAL SALINE. V/S FOLLOWS: T 97 P 110 R 20 B/P 126/78 03 94% ON ROOM AIR. PT LUNG SOUNDS DIMINISHED WITH SLIGHT CRACKLES AT BASE OF LUNGS.HE DENIES PAIN ALL ORDERED PRECAUTIONS IN PLACE.
[2021-07-14] MEDS ORDERED: FAMOTIDINE 20 MG/2 ML VIAL IV SCH (21:00)
[2021-07-15] VITALS: BP 128/72
--- NOTE | 2021-07-15 | NUR ---
PT IN BED AROUSABLE TO NAME, HE HAS NO C/O VOICED HE CONTINUES ON ROOM AIR WITH N/S RUNNING AT 100MLS/HR. V/S FOLLOWS: T 97.4 P 115 R 20 B/P 128/70 02 95% ON ROOM AIR. ALL ORDERED PRECAUTIONS IN PLACE.
[2021-07-15] MEDS: ALBUTEROL SULFATE/IPRATROPIU 3 ML SOL IH SCH ×3 (00:30→13:55)
[2021-07-15] MEDS: NACL 0.9% 1,000 ML IV SCH ×2 (01:10→11:34)
--- NOTE | 2021-07-15 02:00 | NUR ---
ROUNDS DONE, PT RESTING IN BED HE CONTINUES ON ROOM AIR, ALL ORDERED PRECAUTIONS IN PLACE.
--- NOTE | 2021-07-15 03:40 | NUR ---
RECEIVED REPORT OF PT IN STABLE CONDITION.PT IS SLEEPING W/O S/S OF ANY DISTRESS. WILL CONT.MONITORING.
--- NOTE | 2021-07-15 03:45 | NUR ---
REPORT GIVEN TO HAN OCONNOR DUE TO CHANGE OF SHIFT.
[2021-07-15] MEDS: methylPREDNISolone SS 40 MG/ML VIAL IVP SCH ×2 (05:07→13:30)
--- NOTE | 2021-07-15 06:54 | NUR ---
SLEPT WELL.NO DISTRESS NOTED NOW.WILL ENDORSED TO AM SHIFT.
[2021-07-15 07:23] LABS: BASOPHILS % (AUTO) 0.1 % (0.0-2.0); HEMATOCRIT 45.3 % (36-52); HEMOGLOBIN 14.7 g/dL (12.0-18.0); LYMPHOCYTES % (AUTO) 15.6 % (20.5-51.1); MEAN CORPUSCULAR HEMOGLOBIN 25 pg (27-31); MEAN CORPUSCULAR HGB CONC 32 g/dL (33-37); MEAN CORPUSCULAR VOLUME 78.1 fL (80-94); MONOCYTES # (AUTO) 0.5 K/uL (0.8-1.0); MONOCYTES % (AUTO) 4.2 % (1.7-9.3); NEUTROPHILS # (AUTO) 10.2 K/uL (1.8-7.7); NEUTROPHILS % (AUTO) 80.1 % (42.2-75.2); PLATELET COUNT (AUTO) 360 K/uL (140-450); RED BLOOD CELL COUNT(AUTO) 5.79 MIL/uL (4.20-6.10); RED CELL DISTRIBUTION WIDTH 14.1 % (11.6-13.7); WHITE BLOOD COUNT (AUTO) 12.8 K/uL (4.8-10.8)
[2021-07-15 07:27] LABS: ANION GAP 20.4 (8-16); CARBON DIOXIDE 18.8 mmol/L (21-32); CREATININE 0.7 mg/dL (0.6-1.3); POTASSIUM 4.2 mmol/L (3.5-5.1)
--- NOTE | 2021-07-15 07:30 | NUR ---
REPORT RECEIVED FROM HOURLY ASSOCIATE RN . PT RESTING IN BED EYES CLOSED 02% 95%. NO S/SX OF DISTRESS AT THIS TIME. CALL LIGHT WITHIN REACH. ALL SAFETY MEASURES ARE IN PLACE.
[2021-07-15 08:00] VITALS: BP 100/63
--- NOTE | 2021-07-15 08:31 | NUR ---
RT AT BEDSIDE. PT ABLE TO MAKE NEEDS KNOWN .
[2021-07-15] MEDS: predniSONE 20 MG TAB PO SCH (08:35)
[2021-07-15] MEDS: LORATADINE 10 MG TAB PO SCH (08:35)
[2021-07-15] MEDS: metFORMIN 500 MG TAB PO SCH (08:35)
[2021-07-15] MEDS: PANTOPRAZOLE 40 MG TABEC PO SCH (08:36)
[2021-07-15] MEDS: AZITHROMYCIN 250 MG TAB PO SCH (08:36)
--- NOTE | 2021-07-15 08:41 | NUR ---
MEDICATIONS GIVEN PER MD ORDER. PT EDUCATED VERBALIZED UNDERSTANDING . PT STATES HE SMOKES , SMOKING CESSATION DONE REINFORCEMENT NEEDED. PT ORIENTED TO BED ALARMS , ASKED TO CALL FOR ASSISTANCE AND EDUCATED ON GETTING OUT OF BED SLOWLY AND SAFELY. PT VERBALIZED PAIN AT IV SITE, PATENT AND GOOD BLOOD RETURN. WILL CHANGE FOR COMFORT. ALL SAFETY MEASURES ARE IN PLACE BED ALARM WITHIN REACH
--- NOTE | 2021-07-15 10:51 | NUR ---
PT ROUNDED ON , PT SITTING IN BED, PT STATES HE DOES NOT NEED ANYTHING AT THIS TIME. DENIES PAIN . NO S/SX OF DISTRESS. ALL SAFETY MEASURES IN PLACE. CALL LIGHT WITHIN REACH . PT EDUCATED TO WEAR NON SLIP SOCKS WHEN GETTING OUT OF BED.
--- NOTE | 2021-07-15 11:59 | NUR ---
PT RESTING IN BED NO S/SX OF DISTRESS AT THIS TIME. ALL SAFETY MEASURES ARE IN PLACE
--- NOTE | 2021-07-15 13:00 | NUR ---
MEDICATIONS GIVEN PE RMD ODER. PT EDUCATED PT VERBALIZED UNDERSTANDING VOLUNTEER SPECIALIST AT BEDSIDE/
--- NOTE | 2021-07-15 14:07 | NUR ---
DC PLANNING: CM SPOKE WITH THE PATIENT AT BEDSIDE. THE PATIENTS LIVES IN A HOUSE WITH HIS PARENTS AND OTHER FAMILY MEMBERS AND IS INDEPENDENT IN ALL ACTIVITIES AND AMBULATION. NO HISTORY OF HOME HEALTH, HAS A NEBULIZER AT HOME. STATES HE GOES TO [facility] AND SEES HIS PCP REGULARLY BUT CAN'T REMEMBER HIS NAME. ALSO STATES THAT HE WILL PURSUE SMOKING CESSATION THIS IS NOT HIS FIRST TIME IN THE HOSPITAL FOR ASTHMA EXACERBATION. STATES HE IS COMPLIANT WITH ASTHMA MEDICATION WHICH CONSISTS OF A RESCUE ALBUTEROL INHALER. CM SPOKE WITH THE ATTENDING MD ABOUT ORDERING LONG ACTING INHALER AND PO MEDS FOR HALF-WAY ASTHMA MANAGEMENT. NO DC NEEDS IDENTIFIED AT THIS TIME, PLAN IS FOR THE PATIENT TO DC HOME WHEN STABLE. CM WILL FOLLOW FOR NEEDS.
--- NOTE | 2021-07-15 15:20 | NUR ---
PT RESTING IN BED , OFFERED BED BATH SPONGE, PT ABLE TO PERFORM INDEPENDENTLY
[2021-07-15] MEDS ORDERED: METF-988 PO (15:37)
[2021-07-15] MEDS ORDERED: BUDE1AER IH (15:37)
[2021-07-15] MEDS ORDERED: INSU100S22 SUBQ (15:37)
[2021-07-15] MEDS ORDERED: MONT10TA35 PO (15:37)
[2021-07-15] MEDS ORDERED: PRED20TA5 PO (15:37)
[2021-07-15] MEDS ORDERED: PANT40EC56 PO (15:37)
[2021-07-15] MEDS ORDERED: ALBU0.0912 IH (15:37)
[2021-07-15] MEDS ORDERED: AZIT250T4 PO (15:37)
--- NOTE | 2021-07-15 16:40 | NUR ---
DISCHARGE INSTRUCTIONS COMPLETE. PT EDUCATED AND VERBALIZED UNDERSTANDING FOR CONTINUITY OF CARE. PT ID BANDS REMOVED, IV REMOVED CANULA INTACT. PT SMOKING CESSATION REDONE , PT EDUCATED ON CCHO DIET , PT EDUCATED ON MEDICATIONS AND WHERE TO PICK THEM UP. ALL SAFETY MEASURES IN PLACE
== END 2021-07-15 16:45 | disposition home or self-care (01) | DRG 720 ==
LOC: MED 13:24 → MMU 17:52 → MTU 21:12
PROVIDERS: ADMIT Family Medicine; ATTEND Family Medicine
DX: A41.9 Sepsis, unspecified organism (principal); J96.01 Acute respiratory failure with hypoxia; J44.0 Chronic obstructive pulmonary disease with (acute) lower respiratory infection; J18.9 Pneumonia, unspecified organism; J45.901 Unspecified asthma with (acute) exacerbation; J44.1 Chronic obstructive pulmonary disease with (acute) exacerbation; E86.0 Dehydration; E78.2 Mixed hyperlipidemia; E11.9 Type 2 diabetes mellitus without complications; F17.210 Nicotine dependence, cigarettes, uncomplicated; Z20.822 Contact with and (suspected) exposure to COVID-19; Z86.16 Personal history of COVID-19; Z79.2 Long term (current) use of antibiotics; Z79.899 Other long term (current) drug therapy; Z79.84 Long term (current) use of oral hypoglycemic drugs
CPT/HCPCS: 36415; 71045; 80048; 80053; 80305; 81003; 82150; 83036; 83690; 83735; 83880; 84100; 84436; 84439; 84443; 84479; 84484; 85025; 85610; 85730; 87081; 87420; 87804; 94640; 96365; 96375; 99285; J0696; J2920; J2930; J3490; J7060; J7512; J7613; Q0092; U0003

== ENCOUNTER 2022-02-26 13:23 | Emergency (ER) | payer MEDICAID ==
[~2022-02-26] VITALS: Ht 167.6 cm; Wt 69.9 kg
[~2022-02-26 13:23] MED LIST changes: +ALBU0.0912 IH; -ALBU0.0912 INH; -AZIT250T11 PO; +BUDE1AER IH; -BUDE90PO IH; +CEPH-588 PO; +DEC4 PO; +INSU100S22 SUBQ; +METF-1243 PO; -METF-988 PO; +PANT40EC56 PO
[2022-02-26 13:33] VITALS: BP 126/84
[2022-02-26] MEDS ORDERED: ALBUTEROL 0.083% 2.5 MG/3 ML NEBU INH ONE ×3 (13:39→13:40)
[2022-02-26] MEDS ORDERED: methylPREDNISolone SS 125 MG/2 ML VIAL IVP ONE (13:40)
[2022-02-26] MEDS ORDERED: IPRATROPIUM 0.02% 0.5 MG/2.5 ML NEBU INH ONE (13:40)
[2022-02-26] MEDS ORDERED: MAG SULF 2000 MG/WATER PREMIX 50 ML IV ONE (13:40)
--- NOTE | 2022-02-26 13:40 | NUR ---
RT at bedside for breathing tx
--- NOTE | 2022-02-26 13:42 | NUR ---
HHN THERAPY AND RESPIRATORY DRUGS GIVEN ORDERED ENCOURAGED PATIENT FOR INTERMITTENT DEEP BREATHING DURING THERAPY
--- NOTE | 2022-02-26 13:55 | NUR ---
SpO2 99% on breathing tx. Pt states + relief
--- NOTE | 2022-02-26 13:55 | NUR ---
RAD at bedside
[2022-02-26] MEDS ORDERED: ALBU0.0912 INH (15:09)
[2022-02-26] MEDS ORDERED: PRED20TA5 PO (15:09)
--- NOTE | 2022-02-26 15:26 | NUR ---
The patient's care was reviewed and supervised by Alistair Barrientos RN.
--- NOTE | 2022-02-26 15:30 | NUR ---
DPatient discharged with v/s stable. Written and verbal after care instructions given. Patient alert, oriented and verbalized understanding of instructions. Ambulatory with steady gait. All questions addressed prior to discharge. ID band removed. Patient advised to follow up with PMD. Rx of ALBUTEROL SULFATE AND PREDNISONE given. Opportunity to ask questions provided and answered.
[2022-02-26 15:31] VITALS: BP 111/65
== END 2022-02-26 15:31 | disposition home or self-care (01) ==
LOC: MED 13:23
DX: J45.901 Unspecified asthma with (acute) exacerbation (principal); E11.9 Type 2 diabetes mellitus without complications; Z79.4 Long term (current) use of insulin; Z79.899 Other long term (current) drug therapy
CPT/HCPCS: 71045; 96365; 96366; 96375; 99284; J2930; J3475; J7613; J7644; Q0092; 94640

== ENCOUNTER 2023-01-27 20:16 | Emergency (ER) | payer MEDICAID ==
[~2023-01-27] VITALS: Ht 162.6 cm; Wt 78.0 kg
[~2023-01-27 20:16] MED LIST changes: +ALBU0.0912 INH; +MONT-72 PO; -MONT10TA35 PO; +PRED20TA5 PO
[2023-01-27 20:56] VITALS: BP 126/71
--- NOTE | 2023-01-27 21:02 | NUR ---
PT TAKEN TO ER BED 4
--- NOTE | 2023-01-27 21:10 | NUR ---
C/O Adult-Asthma attack x today. Patient reported, had cough, congestion since Tuesday, today had asthma attack, used IH multiple times, no relief. PMHx: Asthma
[2023-01-27] MEDS ORDERED: ALBUTEROL 0.083% 2.5 MG/3 ML NEBU INH ONE ×3 (21:12→22:55)
[2023-01-27] MEDS ORDERED: IPRATROPIUM 0.02% 0.5 MG/2.5 ML NEBU INH ONE ×3 (21:12→22:55)
--- NOTE | 2023-01-27 21:34 | NUR ---
PT WITH HX OF ASTHNA AND A SMOKER. BILATERAL BREATH SOUNDS THOUGHOUT ON BOTH I/E. PER DR. LUNA MEDS WERE OVERRIDED AND GIVEN TO PT. PLACED PT BACK ON 3L NC POST TX SPO2 93%. RN NOTIFIED
[2023-01-27] MEDS ORDERED: predniSONE 20 MG TAB PO ONE (21:45)
[2023-01-27 22:09] LABS: BASOPHILS % (AUTO) 0.4 % (0.0-2.0); EOSINOPHILS # (AUTO) 0.5 K/uL (0-0.4); EOSINOPHILS % (AUTO) 7.4 % (0.0-4.0); HEMATOCRIT 48.2 % (36-52); HEMOGLOBIN 15.9 g/dL (12.0-18.0); LYMPHOCYTES # (AUTO) 1.2 K/uL (2.0-11.5); LYMPHOCYTES % (AUTO) 17.7 % (20.5-51.1); MEAN CORPUSCULAR HEMOGLOBIN 25 pg (27-31); MEAN CORPUSCULAR HGB CONC 33 g/dL (33-37); MEAN CORPUSCULAR VOLUME 76.7 fL (80-94); MONOCYTES # (AUTO) 0.8 K/uL (0.8-1.0); MONOCYTES % (AUTO) 12.3 % (1.7-9.3); NEUTROPHILS # (AUTO) 4.3 K/uL (1.8-7.7); NEUTROPHILS % (AUTO) 62.2 % (42.2-75.2); PLATELET COUNT (AUTO) 287 K/uL (140-450); RED BLOOD CELL COUNT(AUTO) 6.29 MIL/uL (4.20-6.10); RED CELL DISTRIBUTION WIDTH 13.9 % (11.6-13.7); WHITE BLOOD COUNT (AUTO) 6.9 K/uL (4.8-10.8)
[2023-01-27 22:17] LABS: ANION GAP 19.2 (8-16); CARBON DIOXIDE 24.6 mmol/L (21-32); CREATININE 0.9 mg/dL (0.6-1.3); POTASSIUM 3.8 mmol/L (3.5-5.1)
[2023-01-27] MEDS ORDERED: NACL 0.9% 1,000 ML IV ONE (22:55)
--- NOTE | 2023-01-27 23:07 | NUR ---
Respiratory Therapist at bedside for respiratory intervention.
[2023-01-27] MEDS ORDERED: AZIT250T4 PO (23:47)
[2023-01-27] MEDS ORDERED: PRED20TA5 PO (23:47)
[2023-01-27] MEDS ORDERED: ALBU0.0912 IH (23:47)
--- NOTE | 2023-01-28 01:32 | NUR ---
AMBULATED TO BR WITH STEADY GAIT, O2 SAT = 93%
[2023-01-28] MEDS ORDERED: INSULIN REGULAR, HUMAN 100 UNIT/ML VIAL IVP ONE (01:35)
[2023-01-28 02:50] VITALS: BP 126/71
--- NOTE | 2023-01-28 02:50 | NUR ---
Patient discharged with v/s stable. Written and verbal after care instructions given and explained. Patient alert, oriented and verbalized understanding of instructions. Ambulatory with steady gait. All questions addressed prior to discharge. ID band removed. Patient advised to follow up with PMD. Rx of PROVENTIL, ZITHROMAX, PREDNISONE given. Patient educated on indication of medication including possible reaction and side effects. Opportunity to ask questions provided and answered.
== END 2023-01-28 02:50 | disposition home or self-care (01) ==
LOC: MED 20:16
DX: J45.901 Unspecified asthma with (acute) exacerbation (principal); Z20.822 Contact with and (suspected) exposure to COVID-19; E11.9 Type 2 diabetes mellitus without complications; Z87.891 Personal history of nicotine dependence; Z71.6 Tobacco abuse counseling; Z79.2 Long term (current) use of antibiotics; Z79.899 Other long term (current) drug therapy; Z79.4 Long term (current) use of insulin
CPT/HCPCS: 36415; 71045; 80048; 83880; 85025; 87426; 94640; 96361; 96374; 99284; J1815; J7030; J7512; J7613; J7644; Q0092

== ENCOUNTER 2023-02-22 10:25 | Inpatient (IN) | payer MEDICAID ==
[~2023-02-22] VITALS: Ht 162.6 cm; Wt 77.6 kg
[~2023-02-22 10:25] MED LIST changes: +AZIT250T4 PO
[2023-02-22 10:43] VITALS: BP 139/86
--- NOTE | 2023-02-22 10:48 | NUR ---
PT AMBULATED TO ER BED 7
[2023-02-22] MEDS ORDERED: ALBUTEROL 0.083% 2.5 MG/3 ML NEBU INH ONE ×4 (11:05→16:20)
[2023-02-22] MEDS ORDERED: predniSONE 20 MG TAB PO ONE (11:05)
[2023-02-22] MEDS ORDERED: IPRATROPIUM 0.02% 0.5 MG/2.5 ML NEBU INH ONE ×2 (11:05→12:55)
--- NOTE | 2023-02-22 11:12 | NUR ---
Respiratory Therapist at bedside for respiratory intervention. Patient tolerated well.
[2023-02-22] MEDS ORDERED: predniSONE 20 MG TAB ONE (12:09)
[2023-02-22] MEDS ORDERED: MAG SULF 2000 MG/WATER PREMIX 50 ML IV ONE (16:15)
[2023-02-22 16:34] LABS: BASOPHILS # (AUTO) 0.1 K/uL (0.00-0.22); BASOPHILS % (AUTO) 0.9 % (0.0-2.0); EOSINOPHILS # (AUTO) 0.3 K/uL (0-0.4); EOSINOPHILS % (AUTO) 3.3 % (0.0-4.0); HEMATOCRIT 43.2 % (36-52); HEMOGLOBIN 14.3 g/dL (12.0-18.0); LYMPHOCYTES # (AUTO) 0.8 K/uL (2.0-11.5); LYMPHOCYTES % (AUTO) 10.2 % (20.5-51.1); MEAN CORPUSCULAR HEMOGLOBIN 25 pg (27-31); MEAN CORPUSCULAR HGB CONC 33 g/dL (33-37); MEAN CORPUSCULAR VOLUME 76.6 fL (80-94); MONOCYTES % (AUTO) 0.5 % (1.7-9.3); NEUTROPHILS % (AUTO) 85.1 % (42.2-75.2); PLATELET COUNT (AUTO) 299 K/uL (140-450); RED BLOOD CELL COUNT(AUTO) 5.64 MIL/uL (4.20-6.10); RED CELL DISTRIBUTION WIDTH 13.8 % (11.6-13.7); WHITE BLOOD COUNT (AUTO) 8.3 K/uL (4.8-10.8)
[2023-02-22] MEDS ORDERED: ALBUTEROL 0.083% 2.5 MG/3 ML NEBU INH SCH (16:34)
[2023-02-22 17:14] LABS: ALBUMIN 3.5 g/dL (3.4-5.0); ANION GAP 14.9 (8-16); CARBON DIOXIDE 23.5 mmol/L (21-32); CREATININE 0.7 mg/dL (0.6-1.3); MAGNESIUM 1.8 mg/dL (1.8-2.4); PHOSPHORUS 3.9 mg/dL (2.5-4.9); POTASSIUM 4.4 mmol/L (3.5-5.1); TOTAL BILIRUBIN 0.8 mg/dL (0.0-1.0)
[2023-02-22] MEDS ORDERED: INSULIN REGULAR, HUMAN 100 UNIT/ML VIAL IV ONE (17:25)
[2023-02-22] MEDS ORDERED: NACL 0.9% 1,000 ML IV ONE (17:25)
[2023-02-22] MEDS ORDERED: METF-352 PO (18:14)
[2023-02-22] MEDS ORDERED: ALBU2.5V IH (18:19)
[2023-02-22] MEDS ORDERED: ACETAMINOPHEN 325 MG TAB PO PRN (18:30)
[2023-02-22] MEDS ORDERED: ONDANSETRON 4 MG/2 ML VIAL IVP PRN (18:30)
[2023-02-22] MEDS ORDERED: HYDROcodone/APAP 5/325 MG 1 TAB TAB PO PRN ×2 (18:30)
--- NOTE | 2023-02-22 19:32 | NUR ---
COVID SWAB COLLECTED AND SENT TO LAB
--- NOTE | 2023-02-22 19:44 | NUR ---
PT IS RESTING IN BED WITH HOB ELEVATED. PT IS BEING ADMITED TO HOSPITAL. PENDING BED ASSIG. ADMISSION FOR ASTHMA AND DM. PT IS NONCOMPLIANT WITH HIS DM. A&OX4 SKIN WARM AND DRY. SPO2 94% 3L NC. ON BEDSIDE CARDAIC MONITOR. NKDA DM ASTHMA
--- NOTE | 2023-02-22 20:40 | NUR ---
RT AT BEDSIDE FOR NEB TX
--- NOTE | 2023-02-22 20:50 | NUR ---
Patient will be admitted to care of DR CASTELLANOS. Admited to TELE. Will go to [id number]. Belongings list completed. Report to EDUARDO OCONNOR.
--- NOTE | 2023-02-22 20:50 | NUR ---
REPORT GIVEN TO EDUARDO OCONNOR
[2023-02-22] MEDS: INSULIN LISPRO SLIDING SCALE 100 UNITS/ML VIAL SUBQ PRN (21:35)
[2023-02-23] VITALS: BP 93/69
[2023-02-23] MEDS ORDERED: ALBUTEROL SULFATE/IPRATROPIU 3 ML SOL IH PRN (00:25)
[2023-02-23 04:00] VITALS: BP 105/58
[2023-02-23 06:53] LABS: ANION GAP 12.2 (8-16); CARBON DIOXIDE 24.7 mmol/L (21-32); CREATININE 0.5 mg/dL (0.6-1.3); POTASSIUM 3.9 mmol/L (3.5-5.1)
--- NOTE | 2023-02-23 07:03 | NUR ---
LOC AWAKE AND ALERT VERBALLY RESPONSIVE; RECEIVED ON SUPPLEMENTAL OXYGENATION AT 5 LPM VIA NC SATURATION 93%; POST HHN THERAPY TITRATED FIO2 TO 4 LPM SHANT/RN NOTIFIED; PATIENT C/O NASAL DRYNESS WITH SUPPLEMENTAL OXYGEN USE POST THERAPY ADDED A HUMIDIFIER
[2023-02-23] MEDS: ALBUTEROL SULFATE/IPRATROPIU 3 ML SOL IH SCH ×5 (07:06→22:55)
--- NOTE | 2023-02-23 07:20 | NUR ---
Patient's Plan of Care was discussed and reviewed with HALLEY: JAZZMINE
--- NOTE | 2023-02-23 07:20 | NUR ---
RECEIVED REPORT FROM MECHANICAL FITTER REGISTRY NURSE FOR CONTINUITY OF CARE. PT IN BED SLEEPING AT THIS TIME. PT IS ON 4L O2 VIA NC. NO SIGNS OF DISTRESS NOTED. PT IS ALERT AND ORIENTED X4, ABLE TO VERBALIZE NEEDS, ABLE TO FOLLOW COMMANDS. CARDIAC MONITORING AT THIS TIME SR. PT IS ON CCHO DIET. ABD IS NONTENDER, NONDISTENDED WITH BOWEL SOUNDS PRESENT. PT IS CONTINENT OF BOWEL AND BLADDER, ABLE TO AMBULATE TO REST ROOM. PT HAS IV TO RAC 20G, SL. SKIN IS WARM, DRY, AND INTACT. CALL LIGHT WITHIN REACH. ALL SAFETY MEASURES IN PLACE.
--- NOTE | 2023-02-23 07:36 | NUR ---
PT BLOOD GLUCOSE 226, ADMINISTERED SCHEDULED INSULIN 7 UNITS ORDERED.
[2023-02-23 08:00] VITALS: BP 124/81
[2023-02-23] MEDS: INSULIN LISPRO 100 UNITS/ML VIAL SUBQ SCH ×3 (08:17→17:06)
--- NOTE | 2023-02-23 10:02 | NUR ---
PATIENT HAS BEEN SCREENED AND CATEGORIZED MODERATE NUTRITION RISK. PATIENT WILL BE SEEN WITHIN 3-[address] OF [address]ION. [address]
--- NOTE | 2023-02-23 11:34 | NUR ---
PT BLOOD GLUCOSE WAS 138, ADMINISTERED SCHEDULED INSULIN 7 UNITS ORDERED.
[2023-02-23] MEDS: AZITHROMYCIN 250 MG TAB PO SCH (11:35)
[2023-02-23 12:00] VITALS: BP 113/77
--- NOTE | 2023-02-23 13:02 | NUR ---
PT COMPLAINING OF WHEEZING. CHECKED PT 02 SAT, 02 SAT AT 96%. PT ASKING FOR EXTRA ALBUTEROL TX. RT MADE AWARE.
[2023-02-23] MEDS: methylPREDNISolone SS 40 MG/ML VIAL IVP SCH ×2 (13:14→21:00)
--- NOTE | 2023-02-23 13:34 | NUR ---
NATTY PLANNING A 38 Y.O. MALE PATIENT ALERT AND ORIENTED X 3 ADMITTED TO TELEMETRY FOR COUGHING AND WHEEZING X 3DAYS .HX OF DM,HLD AND ASTHMA.STARTED ON STEROIDS AND AZITHROMYCIN. HHN THERAPY PER RT.ON 4 L NC.NATTY PLAN- HOME WHEN PATIENT RESPONDS TO TX.CM TO FOLLOW. Addendum: 02/23/23 at 1340 by MICHELE ASHTON CM LATE ENTRY CXR NO ACUTE PULMONARY DISEASE.ECHO RESULT PENDING. Addendum: 02/24/23 at 1350 by RIKY JAMES [facility] [employer] LOCATED AT [address] [facility] [place] [address]. SPOKE WITH LOUIE WHO WAS ABLE TO HELP ME SCHEDULE AN APPOINTMENT FOR 03/02/2023 AT 0900. WENT TO PATIENTS BEDSIDE AND WAS ABLE TO MAKE PATIENT AWARE OF THE ABOVE INFORMATION WELL GIVE HIM AN APPOINTMENT SLIP. Addendum: 02/25/23 at 1517 by MICHELE ASHTON CM DC PLANNING DISCHARGE ORDER CANCELLED 02/24/23.PATIENT HAD SOB AND DESATURATED TO 80S.CT ANGIO DONE WHICH IS NEGATIVE FOR PULM EMBOLUS BUT WITH VERY SMALL PATCHY RIGHT MULTI LOBULAR OPACITIES SUGGESTIVE OF PNEUMONITIS AND OR EARLY PNEUMONIA.PULMO,CARDIO ON BOARD.CM TO FOLLOW. Addendum: 02/25/23 at 1609 by MICHELE ASHTON CM LATE ENTRY PATIENT ON 2L NC.AWAKE ,ALERT X3 . NO DISTRESS SEEN.QUETA AT [facility] UPDATED OF EVENTS FROM ADMISSION TILL 02/25/2023.
--- NOTE | 2023-02-23 15:18 | NUR ---
DC PLANNING ASSESSMENT COMPLETE PLEASE REFER TO ASSESSMENT FOR ADDITIONAL DETAILS PT IS A 38 YR OLD MALE ADMITTED TO [facility] FROM HOME WITH DX OF ASTHMA EXACERBATION. PT REPORTS BEING NONCOMPLIANT WITH METFORMIN MEDICATION HE DOES NOT LIKE SIDE EFFECTS AND DOES NOT LIKE TAKING. PT REPORTS [place] ACCESS TO MEDS HOWEVER STRUGGLES TO TAKE. SW PROVIDED PT WITH PSYCOEDUCATION ON NONCOMPLIANCE, UNCONTROLLED DIABETES AND HEALTH IMPLICATIONS. PT REPORTS DC PLAN IS TO RETURN HOME WITH SISTER PROVIDING TRANSPORATION, WHEN MEDICALLY STABLE. Addendum: 02/23/23 at 1519 by Marleny GILLILAND Amended: Links added.
--- NOTE | 2023-02-23 15:35 | NUR ---
SATURATION 97% ON SUPPLEMENTAL OXYGEN AT 4 LPM VIA NC; POST HHN THERAPY TITRATD FIO2 TO 3 LPM; SHANT/ELVIN NOTIFIED
[2023-02-23 16:00] VITALS: BP 110/62
--- NOTE | 2023-02-23 16:35 | NUR ---
DID ROUNDS TO CHECK ON PT. PT IN BED, RESTING AT THIS TIME. RESPIRATIONS ARE EVEN AND UNLABORED. CONTINUES ON NC.
--- NOTE | 2023-02-23 17:06 | NUR ---
PT BLOOD GLUCOSE WAS 198, SCHEDULED INSULIN ADMINISTERED 7 UNITS ORDERED.
--- NOTE | 2023-02-23 18:13 | NUR ---
PT FAMILY AT NURSES STATION, ASKING IF OK TO GIVE PT HIS INHALER. INFORMED PT AND FAMILY THAT HE IS GETTING ALBUTEROL TX SCHEDULED AND NEEDED, WELL PREDNISONE. ASKED PT FAMILY TO PLEASE TAKE INHALER HOME. PT AND FAMILY IN AGREEMENT.
--- NOTE | 2023-02-23 19:27 | NUR ---
ENDORSED PT TO PLANT MANAGER NURSEKLEBER, FOR CONTINUITY OF CARE. PT IS STABLE.
[2023-02-23 20:00] VITALS: BP 110/62
[2023-02-23] MEDS: INSULIN LANTUS 100 UNITS/ML 10 ML VIAL SUBQ SCH (21:00)
[2023-02-23] MEDS: INSULIN LISPRO SLIDING SCALE 100 UNITS/ML VIAL SUBQ PRN (23:09)
[2023-02-23] MEDS ORDERED: DEXTROSE 50% 50 ML SYR IVP PRN (23:10)
[2023-02-24] MEDS: ALBUTEROL SULFATE/IPRATROPIU 3 ML SOL IH SCH ×6 (02:42→22:03)
[2023-02-24] MEDS: methylPREDNISolone SS 40 MG/ML VIAL IVP SCH ×3 (05:00→20:21)
--- NOTE | 2023-02-24 07:00 | NUR ---
RECEIVED REPORT FROM [facility] NURSE [place]. PT IS AWAKE IN BED, AOX4, PT HAVING BREATHING TREATMENT WITH RT. PT HAS COUGH. NO FURTHER SIGNS OF DISTRESS/PAIN/DISCOMFORT. REORIENTED PT TO CALL LIGHT. BED IN LOWEST POSITION, 2 SIDE RAILS UP, CALL LIGHT WITHIN REACH. NO FURTHER NEEDS ARE TO BE MET AT THIS TIME. WILL CONTINUE WITH CARE.
[2023-02-24 08:00] VITALS: BP 106/70
[2023-02-24] MEDS: BLOOD GLUCOSE MONITORING 1 DEV DEV FS SCH ×4 (08:24→21:22)
[2023-02-24] MEDS: INSULIN LISPRO 100 UNITS/ML VIAL SUBQ SCH ×3 (08:24→16:56)
[2023-02-24] MEDS: AZITHROMYCIN 250 MG TAB PO SCH (09:33)
[2023-02-24 09:50] LABS: ANION GAP 13.8 (8-16); CARBON DIOXIDE 27.6 mmol/L (21-32); CREATININE 0.7 mg/dL (0.6-1.3); POTASSIUM 4.4 mmol/L (3.5-5.1)
[2023-02-24 09:59] LABS: BASOPHILS % (AUTO) 0.2 % (0.0-2.0); EOSINOPHILS % (AUTO) 0.4 % (0.0-4.0); HEMATOCRIT 43.5 % (36-52); HEMOGLOBIN 14.5 g/dL (12.0-18.0); LYMPHOCYTES # (AUTO) 1.8 K/uL (2.0-11.5); LYMPHOCYTES % (AUTO) 20.9 % (20.5-51.1); MEAN CORPUSCULAR HEMOGLOBIN 26 pg (27-31); MEAN CORPUSCULAR HGB CONC 33 g/dL (33-37); MEAN CORPUSCULAR VOLUME 76.8 fL (80-94); MONOCYTES # (AUTO) 0.3 K/uL (0.8-1.0); MONOCYTES % (AUTO) 3.3 % (1.7-9.3); NEUTROPHILS # (AUTO) 6.5 K/uL (1.8-7.7); NEUTROPHILS % (AUTO) 75.2 % (42.2-75.2); PLATELET COUNT (AUTO) 336 K/uL (140-450); RED BLOOD CELL COUNT(AUTO) 5.66 MIL/uL (4.20-6.10); RED CELL DISTRIBUTION WIDTH 14.1 % (11.6-13.7); WHITE BLOOD COUNT (AUTO) 8.6 K/uL (4.8-10.8)
[2023-02-24] MEDS ORDERED: ALBU0.0912 IH (10:00)
[2023-02-24] MEDS ORDERED: METH4TAB1 PO (10:00)
[2023-02-24] MEDS ORDERED: CEPH250C16 PO (10:00)
[2023-02-24] MEDS ORDERED: AZIT250T3 PO (10:00)
--- NOTE | 2023-02-24 10:03 | NUR ---
PT WAS AWAKE AND HAPPILY TOOK HIS TREATMENT. PT HAS STRONG EXPIRATORY WHEEZING WHICH IMPROVED POST TXN. PT SATURATION WAS 96% ON 3L. WILL CONTINUE TO MONITOR AND PROVIDE HHN TXN Q4 PER DOCTOR'S ORDER.
--- NOTE | 2023-02-24 14:30 | NUR ---
PT O2 SAT DROPPED TO 85% WHILE ON 3L NASAL CANNULA, RT ASSESSED PT AND INCREASED O2 TO 4L. O2 SAT AT 87% ON REASSESSMENT. RT INFORMED, INSTRUCTED TO INCREASE O2 SAT TO 6L. PT STILL AT 87%, BUT SHOWS NO SIGNS OF DISTRESS. MD INFORMED. INSTRUCTED TO HOLD DC FOR NOW, MONITOR, MOVE PT FROM BED TO CHAIR AND GET HIM TO WALK AROUND THE UNIT. WILL CONTINUE TO MONITOR AND WILL CONTINUE WITH PT CARE.
[2023-02-24 16:00] VITALS: BP 107/67
--- NOTE | 2023-02-24 16:45 | NUR ---
PT ASSESSED AFTER CALL FROM NURSE. PT REPORTED FEELING SHORT OF BREATH AND STRUGGLING TO BREATH. PT FELT LIKE A WEIGHT ON CHEST. pT AUDIBLY WHEEZING. PT OXYGEN FLOW WAS INCREASED TO 6L WITH HUMIDITY DUE TO SATURATION OF 88%. AFTER 2 HOURS PT SATURATION WAS 100%. DECREASED FLOW TO 5L SATURATION IS STAYING ABOVE 92%. WILL CONTINUE TO MONITOR PT.
--- NOTE | 2023-02-24 17:00 | NUR ---
ASSESSED PT O2 SAT. PT AT 85%. MD STATES IF PT'S O2 IS STILL <90% THEN WE WILL HOLD DC.
[2023-02-24] MEDS: INSULIN LANTUS 100 UNITS/ML 10 ML VIAL SUBQ SCH (17:04)
[2023-02-24 17:34] VITALS: BP 106/70
--- NOTE | 2023-02-24 19:08 | NUR ---
PT RESTING IN BED, NO SIGNS OF DISTRESS, NO REPORTS OF PAIN/DISCOMFORT, PT O2 SAT INCREASED TO 90% AFTER BREATHING TREATMENT WITH RT. WILL INFORM MD OF PT STATUS. NO FURTHER NEEDS ARE TO BE MET AT THIS TIME. WILL ENDORSE TO NIGHTSHIFT NURSE.
--- NOTE | 2023-02-24 19:29 | NUR ---
ENDORSED PT TO NIGHTSHIFT NURSE FOR CONTINUITY OF CARE.
--- NOTE | 2023-02-24 19:30 | NUR ---
RECEIVED REPORT FROM DAY SHIFT RN FOR CONTINUITY OF CARE. PT IS AAOX4. PT NOT IN ANY DISTRESS. PT HAS RIGHT AC 20 GAUGE SALINE LOCK. POC DISCUSSED. SAFETY MEASURES TAKEN. WILL CONTINUE TO MONITOR THE PT.
[2023-02-24] MEDS: BUDESONIDE 0.5 MG/2 ML NEBU INH SCH (19:40)
[2023-02-24 20:00] VITALS: BP 105/56
--- NOTE | 2023-02-24 20:25 | NUR ---
SCHEDULE MEDICATION GIVEN. NO ADVERSE REACTION NOTED. PT IS CURRENTLY ON NC 2L SATING 90%. PT JUST HAD BREATHING TREATMENT AND STATES HE FEELS FINE.
[2023-02-24] MEDS: INSULIN LISPRO SLIDING SCALE 100 UNITS/ML VIAL SUBQ PRN (21:21)
--- NOTE | 2023-02-25 | NUR ---
OBSERVED PT. PT IS SLEEPING COMFORTABLY IN BED. PT NOT IN ANY DISTRESS. BREATHING EVEN AND UNLABORED. PT SATING 92%.
[2023-02-25 04:00] VITALS: BP 101/65
[2023-02-25] MEDS: ALBUTEROL SULFATE/IPRATROPIU 3 ML SOL IH SCH ×6 (04:00→23:06)
[2023-02-25] MEDS: methylPREDNISolone SS 40 MG/ML VIAL IVP SCH ×3 (04:32→21:15)
--- NOTE | 2023-02-25 04:32 | NUR ---
SCHEDULE MEDICATION GIVEN. NO ADVERSE REACTION NOTED. PT IS STILL ON NC 2L SATING 92%. NO COMPLAINS FROM THE PT.
[2023-02-25] MEDS: INSULIN LISPRO 100 UNITS/ML VIAL SUBQ SCH ×3 (06:47→17:17)
[2023-02-25] MEDS: INSULIN LISPRO SLIDING SCALE 100 UNITS/ML VIAL SUBQ PRN ×3 (06:47→21:06)
[2023-02-25] MEDS: BLOOD GLUCOSE MONITORING 1 DEV DEV FS SCH ×4 (06:48→20:24)
[2023-02-25] MEDS: BUDESONIDE 0.5 MG/2 ML NEBU INH SCH (07:03)
--- NOTE | 2023-02-25 07:05 | NUR ---
RECEIVED REPORT FROM GEM STONE CUTTER FOR CONTINUITY OF CARE. INITIAL ASSESSMENT DONE. ALERT AND ORIENTED X4. RESP. EVEN AND UNLABORED. ON CONT. O2 @ 2L/NC. RESP. EVEN AND UNLABORED. IV SITE INTACT, ON SALINE LOCK. NO C/O PAIN OR DISCOMFORT. CALL LIGHT KEPT WITHIN REACH. WILL CONTINUE TO MONITOR.
--- NOTE | 2023-02-25 07:10 | NUR ---
ENDORSED PT TO DAY SHIFT NURSE FOR CONTINUITY OF CARE. PT IS STABLE.
[2023-02-25 08:00] VITALS: BP 106/71
[2023-02-25] MEDS: AZITHROMYCIN 250 MG TAB PO SCH (08:26)
--- NOTE | 2023-02-25 08:26 | NUR ---
SCHEDULED MEDICATIONS GIVEN. TOLERATED WELL.
--- NOTE | 2023-02-25 12:08 | NUR ---
BS CHECKED 124. SCHEDULED INSULIN 7 UNITS SQ WAS GIVEN. TOLERATED WELL.
--- NOTE | 2023-02-25 13:00 | NUR ---
SOLU MEDROL IVP WAS GIVEN BY ANGEL OCONNOR. TOLERATED WELL.
--- NOTE | 2023-02-25 14:28 | NUR ---
02/25/23 RD INITIAL ASSESSMENT COMPLETED PLEASE REFER TO NUTRITION ASSESSMENT UNDER CARE ACTIVITY FOR ESTIMATED NUTRITIONAL NEEDS. 1. CONTINUE CCHO AND CARDIAC DIET TOLERATED. 2. MONITOR GI, PO INTAKE, NUTRITION RELATED LAB VALUES. 3. RD TO FOLLOW-UP 7 DAYS, LOW RISK CLEMENT WADDELL, RD
[2023-02-25 16:00] VITALS: BP 99/61
--- NOTE | 2023-02-25 16:30 | NUR ---
PT ASSESSED ON LAST ROUND OF TREATMENT AND COMPLAINED OF INNABILITY TO MOVE SECRETIONS. INSTRUCTED PT ON DEEP BREATHING EXERCISES WHICH RESULTED IN AN AGGRESSIVE COUGH. IS AND CPT WERE ORDERED AND WILL BE ADMINISTERED WITH TX. PATIENT WAS INSTRUCTED ON PROPER WAY TO SELF ADMINISTER IS. WILL CONTINUE TO MONITOR PATIENT THROUGHOUT REMAINDER OF SHIFT.
--- NOTE | 2023-02-25 17:11 | NUR ---
BS CHECKED 190. SCHEDULED 7 UNITS OF HUMALOG INSULIN AND 2 UNITS PER SLIDING SCALE, 20 UNITS OF LANTUS WAS GIVEN. TOLERATED WELL.
[2023-02-25] MEDS: INSULIN LANTUS 100 UNITS/ML 10 ML VIAL SUBQ SCH (17:18)
--- NOTE | 2023-02-25 19:29 | NUR ---
RECEIVED PT ON BED IN STABLE CONDITION. O2 SAT 92-93% AT 2 LPM. PT IS ABLE TO VERBALIZED NEEDS.
--- NOTE | 2023-02-25 19:30 | NUR ---
BEDSIDE REPORT GIVEN TO SUBSCRIPTION AGENT FERNANDEZ FOR CONTINUITY OF CARE. REMAINS STABLE.
[2023-02-25 20:00] VITALS: BP 93/58
--- NOTE | 2023-02-25 21:06 | NUR ---
BLOOD SUGAR CHECKED = 315 = 8 UNITS HUMALOG INSULIN ADMINISTERED.
--- NOTE | 2023-02-26 00:15 | NUR ---
PT IS ON AND OFF SLEEPING.
--- NOTE | 2023-02-26 02:30 | NUR ---
PT IS AWAKE AND ON SITTING POSITION, O2 SAT = 93%. PT DENIES OF SOB OR DISTRESS. PT ALSO DENIES OF PAIN.
[2023-02-26] MEDS: ALBUTEROL SULFATE/IPRATROPIU 3 ML SOL IH SCH ×6 (03:55→22:31)
[2023-02-26] MEDS: methylPREDNISolone SS 40 MG/ML VIAL IVP SCH ×3 (05:59→20:20)
[2023-02-26] MEDS: BLOOD GLUCOSE MONITORING 1 DEV DEV FS SCH ×4 (06:34→20:25)
[2023-02-26] MEDS: INSULIN LISPRO SLIDING SCALE 100 UNITS/ML VIAL SUBQ PRN ×4 (06:36→20:54)
[2023-02-26 06:48] LABS: ANION GAP 13.1 (8-16); CARBON DIOXIDE 26.9 mmol/L (21-32); CREATININE 0.5 mg/dL (0.6-1.3)
[2023-02-26 06:50] LABS: BASOPHILS % (AUTO) 0.2 % (0.0-2.0); EOSINOPHILS % (AUTO) 0.2 % (0.0-4.0); HEMATOCRIT 41.7 % (36-52); HEMOGLOBIN 13.7 g/dL (12.0-18.0); LYMPHOCYTES # (AUTO) 2.4 K/uL (2.0-11.5); MEAN CORPUSCULAR HEMOGLOBIN 25 pg (27-31); MEAN CORPUSCULAR HGB CONC 33 g/dL (33-37); MEAN CORPUSCULAR VOLUME 76.9 fL (80-94); MONOCYTES # (AUTO) 0.4 K/uL (0.8-1.0); MONOCYTES % (AUTO) 4.6 % (1.7-9.3); NEUTROPHILS # (AUTO) 5.9 K/uL (1.8-7.7); PLATELET COUNT (AUTO) 313 K/uL (140-450); RED BLOOD CELL COUNT(AUTO) 5.43 MIL/uL (4.20-6.10); RED CELL DISTRIBUTION WIDTH 14.2 % (11.6-13.7); WHITE BLOOD COUNT (AUTO) 8.7 K/uL (4.8-10.8)
--- NOTE | 2023-02-26 07:25 | NUR ---
RECEIVED REPORT FROM BAND CUTTING MACHINE OPERATOR FOR CONTINUITY OF CARE. INITIAL ASSESSMENT DONE. ALERT AND ORIENTED X 4. ON CONTINUOUS O2 @ 2L/NC. RESP. EVEN AND UNLABORED. NOT IN ANY DISTRESS NOTED. CALLED LIGHT KEPT WITHIN REACH. WILL CONTINUE TO MONITOR.
--- NOTE | 2023-02-26 07:30 | NUR ---
BLOOD SUGAR = 202 = 4 HUMALOG INSULIN ADMINISTERED, PT IS ON STABLE CONDITION.
--- NOTE | 2023-02-26 07:47 | NUR ---
ENCOURAGED PATIENT FOR DEEP BREATHING AND COUGH DURING HHN THERAPY; SPONTANEOUS PRODUCTIVE COUGH MODERATE THICK YELLOW SECRETIONS
[2023-02-26] MEDS: INSULIN LISPRO 100 UNITS/ML VIAL SUBQ SCH ×3 (07:50→17:05)
--- NOTE | 2023-02-26 07:50 | NUR ---
SCHEDULED HUMALOG 7 UNITS GIVEN. TOLERATED WELL.
[2023-02-26] MEDS: BUDESONIDE 0.5 MG/2 ML NEBU INH SCH ×2 (07:52→19:53)
--- NOTE | 2023-02-26 07:57 | NUR ---
TOLERATED INCENTIVE THERAPY WELL WITHOUT COMPLICATIONS NOTED; ENCOURAGED PATIENT INCENTIVE SPIROMETRY EVERY 1 TO 2 HOURS WHILE AWAKE
[2023-02-26 08:00] VITALS: BP 91/61
--- NOTE | 2023-02-26 08:00 | NUR ---
Patient's Plan of Care was discussed and reviewed with VICTORIAN LITERATURE PROFESSOR: STEVE
--- NOTE | 2023-02-26 08:27 | NUR ---
SCHEDULED MEDICATIONS GIVEN. TOLERATED WELL.
[2023-02-26] MEDS: AZITHROMYCIN 250 MG TAB PO SCH (08:57)
[2023-02-26] MEDS ORDERED: ALBUTEROL SULFATE/IPRATROPIU 3 ML SOL IH PRN (10:20)
[2023-02-26] MEDS ORDERED: ALBUTEROL SULFATE/IPRATROPIU 3 ML SOL IH SCH (10:30)
[2023-02-26 10:40] LABS: APPEARANCE,URINE CLEAR (CLEAR); BILIRUBIN,URINE NEGATIVE (NEGATIVE); BLOOD, URINE NEGATIVE (NEGATIVE); COLOR,URINE YELLOW (YELLOW); LEUKOCYTE ESTERASE ,URINE TRACE (NEGATIVE); NITRITE, URINE NEGATIVE (NEGATIVE); UGLUCOSE 3+ (NEGATIVE)
[2023-02-26 11:00] LABS: RBC,URINE 0-5 /HPF (0-5); TRICHOMONAS,URINE None Seen /HPF (None Seen); YEAST,URINE None Seen /HPF (None Seen)
--- NOTE | 2023-02-26 11:00 | NUR ---
SEEN BY DR. BATRES. WITH NEW ORDERS: HOME O2 EVAL.WEAN OFF O2. NOTED AND CARRIED OUT.
[2023-02-26 11:15] LABS: BARBITURATE, URINE NEGATIVE ng/ml (NEG <=200); BENZODIAZEPINE, URINE NEGATIVE ng/mL (NEG <=200); CANNABINOID, URINE NEGATIVE ng/mL (NEG <=50); COCAINE, URINE NEGATIVE ng/mL (NEG <=300); OPIATE, URINE NEGATIVE ng/mL (NEG <=2000); PHENCYCLIDINE SCREEN,URINE NEGATIVE ng/mL (NEG <=25)
--- NOTE | 2023-02-26 11:18 | NUR ---
BS CHECKED 193. INSULIN PER SLIDING SCALE AND SCHEDULED 7 UNITS GIVEN. TOLERATED WELL.
--- NOTE | 2023-02-26 11:33 | NUR ---
PER STEVE/JUJU RN; VIRGINIE BATRES: ROOM TRIAL
--- NOTE | 2023-02-26 11:35 | NUR ---
ENCOURAGED INTERMITTENT DEEP BREATHING AND COUGH DURING HHN THERAPY; SPONTANEOUS PRODUCTIVE COUGH FOR MODERATE THICK YELLOW SECRETIONS; POST HHN THERAPY REMOVED FORM SUPPLEMENTAL OXYGEN FOR ROOM TRIAL, STEVE/JUJU RN NOTIFIED
--- NOTE | 2023-02-26 11:36 | NUR ---
TOLERATED INCENTIVE SPIROMETRY THERAPY WELL WITHOUT COMPLICATIONS NOTED; ENCOURAGED PATIENT TO USE INCENTIVE SPIROMETRY EVERY 1 TO 2 HOURS WHILE AWAKE
--- NOTE | 2023-02-26 12:05 | NUR ---
ROOM AIR SATURATION 85%; PLACED BACK ON SUPPLEMENTAL OXYGEN AT 3 LPM VIA NC; STEVE/RN AT BEDSIDE AND AWARE
--- NOTE | 2023-02-26 12:17 | NUR ---
ROOM TRIAL, WEAN OFF O2 - SATTING 85%-86% RA. DR. BATRES NOTIFIED, STATED NO DISCHARGED TODAY.
--- NOTE | 2023-02-26 12:54 | NUR ---
SOLU-MEDROL IVP GIVEN BY SUSANNE OCONNOR. TOLERATED WELL.
--- NOTE | 2023-02-26 15:35 | NUR ---
DURING HHN THERAPY PRODUCTIVE COUGH WITH MODERATE SEMI THICK YELLOW SECRETIONS; TOLERATED INCENTIVE SPIROMETRY WELL WITH NO COMPLICATIONS NOTED
[2023-02-26 16:00] VITALS: BP 101/64
[2023-02-26] MEDS: INSULIN LANTUS 100 UNITS/ML 10 ML VIAL SUBQ SCH (17:05)
--- NOTE | 2023-02-26 17:05 | NUR ---
BS CHECKED 315. SCHEDULED 7 UNITS, 8 UNITS PER SLIDING SCALE, LANTUS 21 UNITS GIVEN. TOLERATED WELL.
--- NOTE | 2023-02-26 19:07 | NUR ---
BEDSIDE REPORT GIVEN TO ASSISTANT OPERATIONS MANAGER GEE FOR CONTINUITY OF CARE. REMAINS STABLE.
--- NOTE | 2023-02-26 19:08 | NUR ---
RECEIVED PT FROM MORNING SHIFT NURSE. PT IS AOX4, AMBULATORY,ABLE TO VERBALIZE NEEDS AND ABLE TO FOLLOW COMMANDS. PT IS ON 3L NC AND ON CARDIAC DIET. PT HAS IV ON RIGHT AC GAUGE 20, SALINE LOCK. PT SKIN IS INTACT. ALL SAFETY MEASURES IMPLEMENTED. BED IN LOW POSITION, BED WHEELS ON LOCK AND CALL LIGHT WITHIN REACH.
--- NOTE | 2023-02-26 20:20 | NUR ---
SCHEDULED AND PRESCRIBED MEDICATION WAS GIVEN TO PT PER MD ORDER. ALL SAFETY MEASURES IMPLEMENTED. BED IN LOW POSITION, BED WHEELS ON LOCK AND CALL LIGHT WITHIN REACH.
--- NOTE | 2023-02-26 20:54 | NUR ---
PT BLOOD GLUCOSE IS 263. HUMALOG INSULIN 6 UNITS WAS GIVEN TO PT. ALL SAFETY MEASURES IMPLEMENTED. BED IN LOW POSITION, BED WHEELS ON LOCK AND CALL LIGHT WITHIN REACH.
--- NOTE | 2023-02-27 | NUR ---
PT IS ON SLEEP. CHEST RISE AND FALL SYMMETRICALLY NOTED. RESPIRATION IS EVEN AND UNLABORED. ALL SAFETY MEASURES IMPLEMENTED. BED IN LOW POSITION, BED WHEELS ON LOCK AND CALL LIGHT WITHIN REACH.
--- NOTE | 2023-02-27 02:00 | NUR ---
CHECKED THE PT STILL ON SLEEP. CHEST RISE AND FALL SYMMETRICALLY NOTED. RESPIRATION IS EVEN AND UNLABORED. ALL SAFETY MEASURES IMPLEMENTED. BED IN LOW POSITION, BED WHEELS ON LOCK AND CALL LIGHT WITHIN REACH.
[2023-02-27 02:11] VITALS: BP 99/55
[2023-02-27] MEDS: ALBUTEROL SULFATE/IPRATROPIU 3 ML SOL IH SCH ×6 (03:00→23:04)
[2023-02-27] MEDS: methylPREDNISolone SS 40 MG/ML VIAL IVP SCH ×3 (04:21→21:15)
[2023-02-27] MEDS: INSULIN LISPRO 100 UNITS/ML VIAL SUBQ SCH ×3 (06:35→16:49)
[2023-02-27] MEDS: BLOOD GLUCOSE MONITORING 1 DEV DEV FS SCH ×4 (06:35→21:11)
[2023-02-27] MEDS: INSULIN LISPRO SLIDING SCALE 100 UNITS/ML VIAL SUBQ PRN ×4 (06:36→21:14)
[2023-02-27 07:05] LABS: BASOPHILS % (AUTO) 0.1 % (0.0-2.0); EOSINOPHILS % (AUTO) 0.3 % (0.0-4.0); HEMATOCRIT 40.4 % (36-52); HEMOGLOBIN 13.3 g/dL (12.0-18.0); LYMPHOCYTES # (AUTO) 2.2 K/uL (2.0-11.5); LYMPHOCYTES % (AUTO) 25.9 % (20.5-51.1); MEAN CORPUSCULAR HEMOGLOBIN 25 pg (27-31); MEAN CORPUSCULAR HGB CONC 33 g/dL (33-37); MEAN CORPUSCULAR VOLUME 76.6 fL (80-94); MONOCYTES # (AUTO) 0.5 K/uL (0.8-1.0); MONOCYTES % (AUTO) 5.6 % (1.7-9.3); NEUTROPHILS # (AUTO) 5.9 K/uL (1.8-7.7); NEUTROPHILS % (AUTO) 68.1 % (42.2-75.2); PLATELET COUNT (AUTO) 309 K/uL (140-450); RED BLOOD CELL COUNT(AUTO) 5.27 MIL/uL (4.20-6.10); RED CELL DISTRIBUTION WIDTH 13.8 % (11.6-13.7); WHITE BLOOD COUNT (AUTO) 8.6 K/uL (4.8-10.8)
--- NOTE | 2023-02-27 07:08 | NUR ---
ASSUMED CONTINUITY OF CARE. INITIAL ASSESSMENT DONE. KEEP COMFORTABLE ON BED. CALL LIGHT WITHIN REACH.
--- NOTE | 2023-02-27 07:08 | NUR ---
PT IS STABLE. ENDORSED PT TO MORNING SHIFT NURSE FOR CONTINUITY OF CARE.
[2023-02-27] MEDS: BUDESONIDE 0.5 MG/2 ML NEBU INH SCH ×2 (07:09→20:02)
[2023-02-27 07:32] LABS: ANION GAP 11.9 (8-16); CARBON DIOXIDE 27.8 mmol/L (21-32); CREATININE 0.5 mg/dL (0.6-1.3); POTASSIUM 3.7 mmol/L (3.5-5.1)
[2023-02-27 08:00] VITALS: BP 96/56
[2023-02-27] MEDS: AZITHROMYCIN 250 MG TAB PO SCH (08:57)
--- NOTE | 2023-02-27 10:14 | NUR ---
supervisor delivery department spoke with intake at [facility] ([phone]), patient information given as requested, identified need for home O2 for possible dc today. Waiting for [facility] CM to call back, also spoke with RT to request current notes on RA values today. supervisor delivery department will wait for return call to follow up on arranging home O2. Addendum: 02/27/23 at 1108 by Vianney Angel supervisor delivery department spoke with Faustina at [facility], clinical packet and orders faxed to her at [phone]. supervisor delivery department also spoke with the patient at bedside to confirm the delivery address and let him know that home O2 is being arranged.
--- NOTE | 2023-02-27 11:20 | NUR ---
Room air trail initiated pt SpO2 95% on RA, HR 89, RR 19. Bedside nurse Gurjit notified/ aware.
--- NOTE | 2023-02-27 11:25 | NUR ---
Pt SpO2 89-90% on RA during room air trial. Placed back on 2L NC, SpO2 94%, HR 94, RR 19. Bedside nurse is aware. Addendum: 02/27/23 at 1322 by BERNA LUCAS RT Correct time: placed pt back on 2L NC at 1225
--- NOTE | 2023-02-27 11:55 | NUR ---
Pt placed himself back on NC 10 minutes after initial RA trial. Breathing even and unlabored, pt denies SOB, pain or difficulty. SpO2 95%, HR 91 on 2L, placed back on RA. SpO2 94 on RA, trial continued.
--- NOTE | 2023-02-27 15:15 | NUR ---
BERNA GONZALEZ CAME FOR PT. BREATHING TREATMENT.
[2023-02-27 16:00] VITALS: BP 100/57
[2023-02-27] MEDS: INSULIN LANTUS 100 UNITS/ML 10 ML VIAL SUBQ SCH (16:50)
--- NOTE | 2023-02-27 19:15 | NUR ---
REPORT GIVEN TO STEVE CONNOLLY. IN STABLE CONDITION.
--- NOTE | 2023-02-27 19:30 | NUR ---
OPENING NOTES: Patient received during change of shift. Patient is AA&Ox4 able to make needs known, with call light within reach and RT at bedside. Patient denies any pain or discomfort, chest rise is even & unlabored. Patient was admitted with Asthma Exacerbation. PIV is noted to RAC 20G saline locked, patent with no s/s of infiltration. ABD is soft, non tender. Patient is ambulatory and uses urinal. Will resume care and continue to monitor throughout the shift.
[2023-02-27 20:00] VITALS: BP 111/57
--- NOTE | 2023-02-27 21:54 | NUR ---
Patient has been assessed as indicated and has received schedule 2100 medications as indicated. BS was assessed and noted at 365 so 10 units of Humalog was administered as per sliding scale. Patient tolerated it well. Will continue to monitor.
[2023-02-28] MEDS: ALBUTEROL SULFATE/IPRATROPIU 3 ML SOL IH SCH ×3 (02:25→11:42)
[2023-02-28] MEDS: methylPREDNISolone SS 40 MG/ML VIAL IVP SCH ×2 (04:23→13:00)
[2023-02-28] MEDS: BLOOD GLUCOSE MONITORING 1 DEV DEV FS SCH ×2 (06:35→11:58)
[2023-02-28] MEDS: INSULIN LISPRO SLIDING SCALE 100 UNITS/ML VIAL SUBQ PRN ×2 (06:36→12:01)
[2023-02-28] MEDS: BUDESONIDE 0.5 MG/2 ML NEBU INH SCH (06:37)
[2023-02-28] MEDS: INSULIN LISPRO 100 UNITS/ML VIAL SUBQ SCH ×2 (06:38→11:49)
[2023-02-28 06:57] LABS: BASOPHILS % (AUTO) 0.1 % (0.0-2.0); EOSINOPHILS % (AUTO) 0.1 % (0.0-4.0); HEMATOCRIT 38.5 % (36-52); LYMPHOCYTES # (AUTO) 2.6 K/uL (2.0-11.5); LYMPHOCYTES % (AUTO) 28.3 % (20.5-51.1); MEAN CORPUSCULAR HEMOGLOBIN 26 pg (27-31); MEAN CORPUSCULAR HGB CONC 34 g/dL (33-37); MEAN CORPUSCULAR VOLUME 75.9 fL (80-94); MONOCYTES # (AUTO) 0.5 K/uL (0.8-1.0); MONOCYTES % (AUTO) 5.6 % (1.7-9.3); NEUTROPHILS % (AUTO) 65.9 % (42.2-75.2); PLATELET COUNT (AUTO) 304 K/uL (140-450); RED BLOOD CELL COUNT(AUTO) 5.07 MIL/uL (4.20-6.10); RED CELL DISTRIBUTION WIDTH 13.9 % (11.6-13.7); WHITE BLOOD COUNT (AUTO) 9.1 K/uL (4.8-10.8)
[2023-02-28 07:37] LABS: CARBON DIOXIDE 29.8 mmol/L (21-32); CREATININE 0.6 mg/dL (0.6-1.3); POTASSIUM 3.8 mmol/L (3.5-5.1)
--- NOTE | 2023-02-28 07:53 | NUR ---
AWAKE AND ALERT NO DISTRESS NOTED PATIENT WITH BREAKFAST TRAY AT THIS TIME PULMONOLOGY PHYSICIAN TO ATTEMPT HHN THERAPY AT A LATER TIME
[2023-02-28 08:00] VITALS: BP 113/74
--- NOTE | 2023-02-28 08:56 | NUR ---
SPONTANEOUS PRODUCTIVE COUGH MODERATE PALE WHITE SECRETIONS
--- NOTE | 2023-02-28 12:23 | NUR ---
DC PLANNING PATIENT IS AWAKE, ALERT AND ORIENTED X 3 AND IS GOING HOME .HOME O2 ARRANGED 02/27/23 BY IFTIKHAR GUADALUPE TO BE DELIVERED AT HIS HOME ADDRESS AND BE TAKEN BY SISTER TO THE [facility].O2 DELIVERY CONFIRMED WITH JOSE ALEJANDRO BAH AND SPOKE WITH EDEN.
--- NOTE | 2023-02-28 12:30 | NUR ---
PATIENT DISCHARGE HOME PER PCP ORDER. OXYGEN SUPPLY IS DELIVER TO HOME; SISTER & MOTHER BROUGHT OXYGEN TO HOSPITAL WHEN THEY COME AUTOMOBILE RENTAL AGENT PATIENT HOME. NURSE LAINEY THROUGH DISCHARGE INSTRUCTION WHILE SISTER AND MOTHER PRESENT, AND PATIENT WILL RETURN TO DOCTOR OFFICE FOR APPOINTMENT AT 03/02/2023. DISCHARGE CONSENT SIGNED, IV ACCESS AND WRIST BAND REMOVED PRIOR WHEEL PATIENT OUT THE FACILITY.
== END 2023-02-28 13:15 | disposition home or self-care (01) | DRG 133 ==
LOC: MED 10:25 → MTU 18:43
PROVIDERS: ADMIT Internal Medicine; ATTEND Internal Medicine
DX: J96.00 Acute respiratory failure, unspecified whether with hypoxia or hypercapnia (principal); R65.10 Systemic inflammatory response syndrome (SIRS) of non-infectious origin without acute organ dysfunction; J45.901 Unspecified asthma with (acute) exacerbation; J12.9 Viral pneumonia, unspecified; E87.1 Hypo-osmolality and hyponatremia; E86.0 Dehydration; Z20.822 Contact with and (suspected) exposure to COVID-19; N39.0 Urinary tract infection, site not specified; E11.65 Type 2 diabetes mellitus with hyperglycemia; E78.5 Hyperlipidemia, unspecified; Z79.899 Other long term (current) drug therapy; Z79.1 Long term (current) use of non-steroidal anti-inflammatories (NSAID)
CPT/HCPCS: 36415; 71045; 71275; 80048; 80053; 80305; 81001; 82948; 83735; 84100; 85025; 85379; 87081; 87086; 94010; 94640; 96374; 96375; 99291; J1815; J2920; J3475; J7512; J7613; J7626; J7644; Q0092; Q9967

== ENCOUNTER 2023-03-17 10:49 | Inpatient (IN) | payer MEDICAID ==
[~2023-03-17] VITALS: Ht 167.6 cm; Wt 81.6 kg
[~2023-03-17 10:49] MED LIST changes: -ALBU0.0912 INH; +ALBU2.5V IH; +AZIT250T3 PO; -AZIT250T4 PO; -BUDE1AER IH; -CEPH-588 PO; +CEPH250C16 PO; -DEC4 PO; -INSU100S22 SUBQ; -METF-1243 PO; +METF-352 PO; +METH4TAB1 PO; -MONT-72 PO; -PANT40EC56 PO; -PRED20TA5 PO
--- NOTE | 2023-03-17 10:50 | NUR ---
ASSUMED CARE , BIB FAMILY RESP DISTRESS, HX ASTHMA, INHALER NOT EFFECTIVE, HYPOXIC, TRIPODDING, POOR AIR EXCHANGE, MD AT BS TO EXAMINE , RT AT BS TO GIVE BREATHING TX
--- NOTE | 2023-03-17 10:52 | NUR ---
pt wheelchair assist to bed 09
--- NOTE | 2023-03-17 10:52 | NUR ---
Patient was wheelchair assisted to bed 9.
[2023-03-17] MEDS ORDERED: ALBUTEROL 0.083% 2.5 MG/3 ML NEBU INH ONE ×4 (10:54→11:00)
[2023-03-17] MEDS ORDERED: MAG SULF 2000 MG/WATER PREMIX 50 ML IV ONE ×2 (10:58→11:00)
[2023-03-17] MEDS ORDERED: methylPREDNISolone SS 125 MG/2 ML VIAL ONE (10:58)
[2023-03-17] MEDS ORDERED: methylPREDNISolone SS 125 MG/2 ML VIAL IVP ONE (11:00)
[2023-03-17] MEDS ORDERED: ALBUTEROL SULFATE/IPRATROPIU 3 ML SOL IH ONE ×5 (11:00→19:41)
[2023-03-17] MEDS ORDERED: NACL 0.9% 1,000 ML IV ONE (11:00)
--- NOTE | 2023-03-17 11:10 | NUR ---
TRIPODING ON ARRIVAL, SPOKE IN SHORT SENTENCES, DECREASED BREATH SOUNDS
--- NOTE | 2023-03-17 11:17 | NUR ---
1 HOUR BREATHING TX IN PROGRESS, AIR EXCHAGE IMPROVING
[2023-03-17 11:24] LABS: BASOPHILS # (AUTO) 0.1 K/uL (0.00-0.22); BASOPHILS % (AUTO) 0.8 % (0.0-2.0); EOSINOPHILS # (AUTO) 1.7 K/uL (0-0.4); EOSINOPHILS % (AUTO) 17.6 % (0.0-4.0); HEMATOCRIT 45.2 % (36-52); HEMOGLOBIN 14.9 g/dL (12.0-18.0); LYMPHOCYTES # (AUTO) 2.2 K/uL (2.0-11.5); LYMPHOCYTES % (AUTO) 23.2 % (20.5-51.1); MEAN CORPUSCULAR HEMOGLOBIN 26 pg (27-31); MEAN CORPUSCULAR HGB CONC 33 g/dL (33-37); MONOCYTES # (AUTO) 0.5 K/uL (0.8-1.0); MONOCYTES % (AUTO) 5.6 % (1.7-9.3); NEUTROPHILS % (AUTO) 52.8 % (42.2-75.2); PLATELET COUNT (AUTO) 317 K/uL (140-450); RED BLOOD CELL COUNT(AUTO) 5.79 MIL/uL (4.20-6.10); RED CELL DISTRIBUTION WIDTH 14.6 % (11.6-13.7); WHITE BLOOD COUNT (AUTO) 9.4 K/uL (4.8-10.8)
[2023-03-17 11:40] LABS: ALBUMIN 3.9 g/dL (3.4-5.0); ANION GAP 12.5 (8-16); CARBON DIOXIDE 27.8 mmol/L (21-32); CREATININE 0.6 mg/dL (0.6-1.3); MAGNESIUM 1.9 mg/dL (1.8-2.4); PHOSPHORUS 4.2 mg/dL (2.5-4.9); POTASSIUM 4.3 mmol/L (3.5-5.1); TOTAL BILIRUBIN 1.1 mg/dL (0.0-1.0)
--- NOTE | 2023-03-17 11:42 | NUR ---
nathaly and flu swabbed at this time
--- NOTE | 2023-03-17 12:11 | NUR ---
DAVI TX COMPLETED , FEELING BETTER, PT PUT ON 3LN [id number]% MADE AWARE
--- NOTE | 2023-03-17 13:56 | NUR ---
AMBULATED TO THE BE , SPO2 RA 89- 90 %, SOB, WHEEZING , INCREASE WORK OF BREATHING, MD MADE AWARE
--- NOTE | 2023-03-17 17:40 | NUR ---
RECIEVED REPORT FROM ER NURSE FOR CONTINUITY OF CARE. PTS TABLE UPON TRANSPORT WITH NO SIGNS OF DISTRESS. PT IS A&OX4, SKIN INTACT, ON 4L NC STATING AT 96%, AND AMBULATES ON HIS OWN. HAS A 20G IN HIS R WRIST SALINE LOCKED. ALL SAFETY MEASURES IN PLACE INCLUDING CALL LIGHT A WITHIN REACH AND BED IN LOW POSITION. MONITORING CONTINUED.
[2023-03-17 18:00] VITALS: BP 103/79
--- NOTE | 2023-03-17 19:20 | NUR ---
RECEIVED PT IN BED AWAKE, ALERT AND ORIENTED X 4. DENIES PAIN. NO ACUTE RESPIRATORY DISTRESS NOTED AT THIS TIME. SKIN WARM AND DRY TO TOUCH. SAFETY PRECAUTIONS IN PLACE, CALL LIGHT IN REACH, ENCOURAGED TO CALL IF ASSISTANCE IS NEEDED, OPT VERBALLY ACKNOWLEDGED.
--- NOTE | 2023-03-17 19:36 | NUR ---
ENDORSED TO WELLNESS GUIDE NURSE FOR CONTINUITY OF CARE. PATIENT IS STABLE.
[2023-03-17] MEDS ORDERED: DEXTROSE 50% 50 ML SYR IVP PRN (20:00)
[2023-03-17] MEDS ORDERED: ALBUTEROL SULFATE/IPRATROPIU 3 ML SOL IH PRN ×2 (20:00→23:45)
[2023-03-17] MEDS: INSULIN LISPRO SLIDING SCALE 100 UNITS/ML VIAL SUBQ PRN (20:12)
[2023-03-17] MEDS: BLOOD GLUCOSE MONITORING 1 DEV DEV FS SCH (20:16)
[2023-03-17] MEDS: methylPREDNISolone SS 125 MG/2 ML VIAL IVP SCH (20:27)
[2023-03-17] MEDS: INSULIN LANTUS 100 UNITS/ML 10 ML VIAL SUBQ SCH (20:32)
--- NOTE | 2023-03-17 20:42 | NUR ---
BS-466 REPEATED 436, INSULIN GIVEN PER SLIDING SCALE AND INFORMED DR. CLAUDIO, ORDERED LANTUS, WILL CARRY OUT ORDERED.
[2023-03-17 20:58] VITALS: BP 113/66
[2023-03-17] MEDS ORDERED: ALBUTEROL SULFATE/IPRATROPIU 3 ML SOL IH SCH (23:45)
[2023-03-18] VITALS: BP 122/72
[2023-03-18] MEDS ORDERED: ACETAMINOPHEN 325 MG TAB PO PRN (00:40)
[2023-03-18] MEDS ORDERED: POTASSIUM CHLORIDE 10 MEQ TABER PO PRN (00:40)
[2023-03-18] MEDS ORDERED: HYDROcodone/APAP 7.5/325 MG 1 TAB PO PRN (00:40)
[2023-03-18] MEDS ORDERED: ONDANSETRON 4 MG/2 ML VIAL IVP PRN (00:40)
[2023-03-18] MEDS ORDERED: MAG SULF 2000 MG/WATER PREMIX 50 ML IV PRN (00:40)
[2023-03-18] MEDS ORDERED: ALBUTEROL SULFATE/IPRATROPIU 3 ML SOL IH SCH (01:00)
[2023-03-18] MEDS: ALBUTEROL SULFATE/IPRATROPIU 3 ML SOL IH SCH ×5 (03:52→18:52)
[2023-03-18 04:00] VITALS: BP 97/63
--- NOTE | 2023-03-18 04:00 | NUR ---
VITAL SIGNS TAKEN AND DOCUMENTED, WITHIN NORMAL LIMITS. DENIES SHORTNESS OF BREATH AT THIS TIME. CALL LIGHT REMAINS WITHIN REACH.
[2023-03-18] MEDS: methylPREDNISolone SS 125 MG/2 ML VIAL IVP SCH (05:10)
--- NOTE | 2023-03-18 06:18 | NUR ---
PATIENT IS ASLEEP. ALL NEEDS ATTENDED TO. NO RESPIRATORY DISTRESS. SAFETY PRECAUTIONS MAINTAINED DURING THE SHIFT, CALL LIGHT REMAINS WITHIN REACH.
[2023-03-18 06:31] LABS: BASOPHILS % (AUTO) 0.1 % (0.0-2.0); EOSINOPHILS % (AUTO) 0.1 % (0.0-4.0); HEMATOCRIT 42.6 % (36-52); LYMPHOCYTES # (AUTO) 1.6 K/uL (2.0-11.5); LYMPHOCYTES % (AUTO) 20.5 % (20.5-51.1); MEAN CORPUSCULAR HEMOGLOBIN 26 pg (27-31); MEAN CORPUSCULAR HGB CONC 33 g/dL (33-37); MEAN CORPUSCULAR VOLUME 77.8 fL (80-94); MONOCYTES # (AUTO) 0.3 K/uL (0.8-1.0); MONOCYTES % (AUTO) 4.4 % (1.7-9.3); NEUTROPHILS # (AUTO) 5.9 K/uL (1.8-7.7); NEUTROPHILS % (AUTO) 74.9 % (42.2-75.2); PLATELET COUNT (AUTO) 310 K/uL (140-450); RED BLOOD CELL COUNT(AUTO) 5.47 MIL/uL (4.20-6.10); RED CELL DISTRIBUTION WIDTH 15.2 % (11.6-13.7); WHITE BLOOD COUNT (AUTO) 7.9 K/uL (4.8-10.8)
[2023-03-18] MEDS: INSULIN LISPRO SLIDING SCALE 100 UNITS/ML VIAL SUBQ PRN ×3 (06:39→20:31)
[2023-03-18] MEDS: BLOOD GLUCOSE MONITORING 1 DEV DEV FS SCH ×4 (06:39→20:32)
[2023-03-18 06:45] LABS: ANION GAP 14.2 (8-16); CARBON DIOXIDE 24.4 mmol/L (21-32); CREATININE 0.5 mg/dL (0.6-1.3); POTASSIUM 4.6 mmol/L (3.5-5.1)
[2023-03-18 06:46] LABS: PROTHROMBIN TIME 10.6 secs (10.8-13.4)
--- NOTE | 2023-03-18 07:10 | NUR ---
RECEIVED PATIENT FROM PM NURSE. PATIENT SEEN ON BED ASLEEP, NORMAL RISE AND FALL OF CHEST. CARE PLAN REVIEWED, PATIENT CARE CONTINUED.
[2023-03-18 07:56] LABS: AMYLASE 27 U/L (25-115); FREE T4 (FREE THYROXINE) 1.19 ng/dL (0.76-1.46); HDL CHOLESTEROL 61 mg/dL (40-60); LDL (CALC) 237 mg/dL (60-100); LIPASE 45 U/L (73-393); PHOSPHORUS 4.1 mg/dL (2.5-4.9); THYROID STIMULATING HORMONE 0.37 uIU/mL (0.34-3.74); TRIGLYCERIDES 53 mg/dL (30-150)
[2023-03-18 08:00] VITALS: BP 113/66
[2023-03-18] MEDS: PANTOPRAZOLE 40 MG INJ VIAL IVP SCH (08:20)
[2023-03-18] MEDS: metFORMIN 500 MG TAB PO SCH ×2 (08:20→17:19)
[2023-03-18] MEDS: DOCUSATE SODIUM 100 MG GELCAP PO SCH ×2 (08:21→20:32)
--- NOTE | 2023-03-18 08:51 | NUR ---
PATIENT HAS BEEN SCREENED AND CATEGORIZED LOW NUTRITION RISK. PATIENT WILL BE SEEN WITHIN 7 DAYS OF ADMISSION. 03/24/[address]
[2023-03-18] MEDS: ENOXAPARIN 40 MG/0.4 ML SYR SUBQ SCH (09:51)
[2023-03-18 12:00] VITALS: BP 117/65
--- NOTE | 2023-03-18 12:35 | NUR ---
PATIENT SEEN. STILL WITH DIFFICULTY OF BREATHING BUT OXYGEN SATURATION IS WITHIN NORMAL PER PATIENT'S CURRENT CONDITION. ASKED PATIENT IF THERE WAS ANY DISCOMFORT AND PATIENT STATED "IM OK RIGHT NOW."
[2023-03-18] MEDS: DEXAMETHASONE 4 MG/ML VIAL IVP SCH ×2 (13:55→20:32)
[2023-03-18 16:00] VITALS: BP 118/57
--- NOTE | 2023-03-18 19:49 | NUR ---
ENDORSED PATIENT TO PM NURSE FOR CONTINUITY OF CARE
[2023-03-18 20:00] VITALS: BP 120/67
--- NOTE | 2023-03-18 20:00 | NUR ---
ASSUMED CARE OF PATIENT AT THIS TIME. VSS. AFEBRILE. RESPIRATIONS EVEN AND UNLABORED. O2 SAT 94% ON 4LNC. FAMILY AT BEDSIDE AT THIS TIME. DENIES PAIN AT THIS TIME. NO ACUTE DISTRESS NOTED. WILL CONTINUE TO MONITOR FOR SAFETY. Saida UGALDE RN.
[2023-03-18] MEDS: INSULIN LANTUS 100 UNITS/ML 10 ML VIAL SUBQ SCH (20:28)
[2023-03-18] MEDS ORDERED: ATORVASTATIN 20 MG TAB PO SCH (21:00)
[2023-03-19] VITALS: BP 116/65
[2023-03-19 04:00] VITALS: BP 110/62
[2023-03-19] MEDS: DEXAMETHASONE 4 MG/ML VIAL IVP SCH ×2 (04:34→13:00)
--- NOTE | 2023-03-19 06:00 | NUR ---
PATIENT SLEPT WELL THROUGHOUT THE NIGHT. REMAINS IN STABLE CONDITION. NO ACUTE DISTRESS NOTED. Saida UGALDE RN.
[2023-03-19] MEDS: BLOOD GLUCOSE MONITORING 1 DEV DEV FS SCH ×2 (06:35→11:30)
[2023-03-19] MEDS: INSULIN LISPRO SLIDING SCALE 100 UNITS/ML VIAL SUBQ PRN (06:35)
[2023-03-19 06:49] LABS: ANION GAP 13.4 (8-16); CARBON DIOXIDE 26.7 mmol/L (21-32); CREATININE 0.6 mg/dL (0.6-1.3); PHOSPHORUS 4.9 mg/dL (2.5-4.9); POTASSIUM 4.1 mmol/L (3.5-5.1)
--- NOTE | 2023-03-19 07:10 | NUR ---
RECEIVED PATIENT FROM PM NURSE FOR CONTINUATION OF CARE
--- NOTE | 2023-03-19 07:10 | NUR ---
PATIENT SEEN ASLEEP ON BED WITH NORMAL RISE AND FALL OF CHEST. CARE PLAN REVIEWED. PATIENT CARE CONTINUED
[2023-03-19] MEDS: ALBUTEROL SULFATE/IPRATROPIU 3 ML SOL IH SCH ×2 (07:14→12:29)
[2023-03-19 07:20] LABS: BASOPHILS % (AUTO) 0.1 % (0.0-2.0); EOSINOPHILS # (AUTO) 0.1 K/uL (0-0.4); EOSINOPHILS % (AUTO) 0.6 % (0.0-4.0); HEMATOCRIT 40.1 % (36-52); HEMOGLOBIN 13.3 g/dL (12.0-18.0); LYMPHOCYTES # (AUTO) 1.8 K/uL (2.0-11.5); LYMPHOCYTES % (AUTO) 14.2 % (20.5-51.1); MEAN CORPUSCULAR HEMOGLOBIN 26 pg (27-31); MEAN CORPUSCULAR HGB CONC 33 g/dL (33-37); MONOCYTES # (AUTO) 0.6 K/uL (0.8-1.0); MONOCYTES % (AUTO) 4.6 % (1.7-9.3); NEUTROPHILS # (AUTO) 10.1 K/uL (1.8-7.7); NEUTROPHILS % (AUTO) 80.5 % (42.2-75.2); PLATELET COUNT (AUTO) 313 K/uL (140-450); RED BLOOD CELL COUNT(AUTO) 5.21 MIL/uL (4.20-6.10); RED CELL DISTRIBUTION WIDTH 14.6 % (11.6-13.7); WHITE BLOOD COUNT (AUTO) 12.6 K/uL (4.8-10.8)
[2023-03-19 08:00] VITALS: BP 92/55
[2023-03-19] MEDS: PANTOPRAZOLE 40 MG INJ VIAL IVP SCH (08:25)
[2023-03-19] MEDS: metFORMIN 500 MG TAB PO SCH (08:25)
[2023-03-19] MEDS ORDERED: DEXAMETHASONE 4 MG/ML VIAL IVP SCH (09:00)
[2023-03-19] MEDS: DOCUSATE SODIUM 100 MG GELCAP PO SCH (09:00)
[2023-03-19] MEDS: ENOXAPARIN 40 MG/0.4 ML SYR SUBQ SCH (09:00)
[2023-03-19 12:00] VITALS: BP 101/60
[2023-03-19] MEDS ORDERED: DEC4 PO (12:19)
[2023-03-19] MEDS ORDERED: INSU100S22 SUBQ (12:19)
[2023-03-19 14:08] VITALS: BP 101/60
== END 2023-03-19 14:59 | disposition home or self-care (01) | DRG 141 ==
LOC: MED 10:49 → MTU 14:23
DX: J45.901 Unspecified asthma with (acute) exacerbation (principal); J96.20 Acute and chronic respiratory failure, unspecified whether with hypoxia or hypercapnia; R65.10 Systemic inflammatory response syndrome (SIRS) of non-infectious origin without acute organ dysfunction; E87.1 Hypo-osmolality and hyponatremia; E11.65 Type 2 diabetes mellitus with hyperglycemia; Z20.822 Contact with and (suspected) exposure to COVID-19; E78.5 Hyperlipidemia, unspecified; Z79.2 Long term (current) use of antibiotics; Z79.899 Other long term (current) drug therapy
CPT/HCPCS: 36415; 71045; 80048; 80053; 82150; 82948; 83036; 83690; 83735; 83880; 84100; 84439; 84443; 84484; 85025; 85610; 85730; 87081; 94640; 96374; 96375; 99291; C9113; J1100; J1650; J1815; J2930; J3475; J7613; Q0092

== ENCOUNTER 2023-08-21 15:32 | Emergency (ER) | payer MEDICAID ==
[~2023-08-21] VITALS: Ht 162.6 cm; Wt 79.4 kg
[~2023-08-21 15:32] MED LIST changes: +AMOX-999 PO; -AZIT250T3 PO; +BUDE180P IH; -CEPH250C16 PO; +DEC4 PO; +INSU100S22 SUBQ; +METF-346 PO; +MONT-72 PO
[2023-08-21 15:34] VITALS: BP 157/86; PULSE 112; RESP 17; TEMP 97.8; O2SAT 94
[2023-08-21] MEDS ORDERED: predniSONE 20 MG TAB PO ONE (15:40)
[2023-08-21] MEDS ORDERED: ALBUTEROL 0.083% 2.5 MG/3 ML NEBU INH ONE ×3 (15:40→17:20)
[2023-08-21] MEDS ORDERED: ALBUTEROL SULFATE/IPRATROPIU 3 ML SOL IH ONE ×3 (15:40→17:20)
[2023-08-21 15:48] VITALS: PULSE 102; PULSE 106; RESP 20; O2SAT 94
[2023-08-21] MEDS ORDERED: ALBU0.0912 INH ×2 (15:57→17:05)
[2023-08-21] MEDS ORDERED: PRON INH ×2 (15:57→17:05)
[2023-08-21] MEDS ORDERED: PRED20TA5 PO ×2 (15:57→17:05)
[2023-08-21 16:20] VITALS: PULSE 108; RESP 22; O2SAT 92
[2023-08-21 17:17] VITALS: PULSE 112; RESP 22; O2SAT 90
[2023-08-21 17:30] VITALS: BP 157/86; PULSE 112; RESP 22; TEMP 97.8; O2SAT 90
== END 2023-08-21 17:30 | disposition home or self-care (01) ==
LOC: MED 15:32
DX: J45.901 Unspecified asthma with (acute) exacerbation (principal); E11.9 Type 2 diabetes mellitus without complications; Z79.4 Long term (current) use of insulin; Z79.899 Other long term (current) drug therapy
CPT/HCPCS: 94640; 99285; J7512; J7613

== ENCOUNTER 2023-10-03 02:29 | Inpatient (IN) | payer MEDICAID ==
[~2023-10-03] VITALS: Ht 157.5 cm; Wt 81.6 kg
[~2023-10-03 02:29] MED LIST changes: -ALBU0.0912 IH; +ALBU0.0912 INH; -ALBU2.5V IH; -AMOX-999 PO; -METF-346 PO; +PRON INH
[2023-10-03 02:34] VITALS: BP 125/82; PULSE 106; RESP 20; TEMP 98; O2SAT 92
[2023-10-03] MEDS ORDERED: predniSONE 20 MG TAB PO ONE (02:45)
[2023-10-03] MEDS ORDERED: ALBUTEROL SULFATE/IPRATROPIU 3 ML SOL IH ONE ×2 (02:45→03:55)
[2023-10-03 02:47] VITALS: PULSE 99; RESP 20; O2SAT 83; O2SAT 90
[2023-10-03 03:45] VITALS: PULSE 97; RESP 20; O2SAT 92
[2023-10-03] MEDS ORDERED: ALBUTEROL 0.083% 2.5 MG/3 ML NEBU INH ONE (03:45)
[2023-10-03] MEDS ORDERED: methylPREDNISolone SS 125 MG in WATER STERILE 2 ML IV ONE (04:35)
[2023-10-03] MEDS ORDERED: MAG SULF 2000 MG/WATER PREMIX 50 ML IV ONE (04:35)
[2023-10-03 04:56] LABS: BASOPHILS # (AUTO) 0.2 K/uL (0.00-0.22); BASOPHILS % (AUTO) 1.2 % (0.0-2.0); EOSINOPHILS # (AUTO) 2.2 K/uL (0-0.4); EOSINOPHILS % (AUTO) 15.7 % (0.0-4.0); HEMATOCRIT 40.8 % (36-52); HEMOGLOBIN 13.1 g/dL (12.0-18.0); LYMPHOCYTES % (AUTO) 14.1 % (20.5-51.1); MEAN CORPUSCULAR HEMOGLOBIN 25 pg (27-31); MEAN CORPUSCULAR HGB CONC 32 g/dL (33-37); MEAN CORPUSCULAR VOLUME 78.6 fL (80-94); MONOCYTES # (AUTO) 0.9 K/uL (0.8-1.0); MONOCYTES % (AUTO) 6.2 % (1.7-9.3); NEUTROPHILS % (AUTO) 62.8 % (42.2-75.2); PLATELET COUNT (AUTO) 315 K/uL (140-450); RED BLOOD CELL COUNT(AUTO) 5.19 MIL/uL (4.20-6.10); RED CELL DISTRIBUTION WIDTH 14.2 % (11.6-13.7); WHITE BLOOD COUNT (AUTO) 14.3 K/uL (4.8-10.8)
[2023-10-03 05:07] LABS: CALCIUM 8.9 mg/dL (8.5-10.1); CARBON DIOXIDE 26.7 mmol/L (21-32); CREATININE 0.6 mg/dL (0.6-1.3); POTASSIUM 3.7 mmol/L (3.5-5.1)
[2023-10-03] MEDS ORDERED: MAG SULF 2000 MG/WATER PREMIX 50 ML IV PRN (06:00)
[2023-10-03] MEDS ORDERED: DEXTROSE 50% 50 ML SYR IVP PRN (06:00)
[2023-10-03] MEDS ORDERED: ZOLPIDEM 10 MG TAB PO PRN (06:00)
[2023-10-03] MEDS ORDERED: POTASSIUM CHLORIDE 10 MEQ TABER PO PRN (06:00)
[2023-10-03] MEDS ORDERED: ACETAMINOPHEN 325 MG TAB PO PRN (06:00)
[2023-10-03] MEDS ORDERED: ONDANSETRON 4 MG/2 ML VIAL IVP PRN (06:00)
[2023-10-03] MEDS ORDERED: MORPHINE SULFATE 2 MG/ML SYR IVP PRN (06:00)
[2023-10-03] MEDS ORDERED: DOCUSATE SODIUM 100 MG GELCAP PO PRN (06:00)
[2023-10-03] MEDS ORDERED: methylPREDNISolone SS 125 MG/2 ML VIAL IVP SCH (07:25)
[2023-10-03] MEDS: BLOOD GLUCOSE MONITORING 1 DEV DEV FS SCH ×4 (07:54→23:05)
[2023-10-03] MEDS: metFORMIN 850 MG TAB PO SCH ×2 (08:01→17:40)
[2023-10-03] MEDS: INSULIN LISPRO SLIDING SCALE 100 UNITS/ML VIAL SUBQ PRN ×3 (08:08→16:51)
[2023-10-03] MEDS: ALBUTEROL SULFATE/IPRATROPIU 3 ML SOL IH PRN ×2 (08:37→15:13)
[2023-10-03] MEDS: methylPREDNISolone SS 125 MG/2 ML VIAL IVP SCH ×2 (08:48→22:57)
[2023-10-03] MEDS: BUDESONIDE 0.5 MG/2 ML NEBU INH SCH ×2 (09:22→19:14)
[2023-10-03] MEDS: AZITHROMYCIN 250 MG in DEXTROSE 5% 250 ML IV SCH (12:25)
[2023-10-03 19:56] VITALS: PULSE 108; RESP 16; O2SAT 95
[2023-10-03 21:00] VITALS: BP 122/78; PULSE 100; RESP 20; TEMP 98; O2SAT 98
[2023-10-03] MEDS: MONTELUKAST SODIUM 10 MG TAB PO SCH (22:56)
[2023-10-04] VITALS (7 sets, daily range): BP systolic 99–118; BP diastolic 53–60; PULSE 83–98; RESP 16–20; TEMP 98.1–98.4; O2SAT 92–98
[2023-10-04 07:14] LABS: ANION GAP 13.4 (8-16); CALCIUM 9.1 mg/dL (8.5-10.1); CARBON DIOXIDE 26.8 mmol/L (21-32); CREATININE 0.6 mg/dL (0.6-1.3); POTASSIUM 4.2 mmol/L (3.5-5.1)
[2023-10-04 07:17] LABS: BASOPHILS % (AUTO) 0.1 % (0.0-2.0); EOSINOPHILS % (AUTO) 0.1 % (0.0-4.0); HEMATOCRIT 40.4 % (36-52); HEMOGLOBIN 13.2 g/dL (12.0-18.0); LYMPHOCYTES # (AUTO) 1.9 K/uL (2.0-11.5); LYMPHOCYTES % (AUTO) 16.3 % (20.5-51.1); MEAN CORPUSCULAR HEMOGLOBIN 26 pg (27-31); MEAN CORPUSCULAR HGB CONC 33 g/dL (33-37); MEAN CORPUSCULAR VOLUME 77.8 fL (80-94); MONOCYTES # (AUTO) 0.4 K/uL (0.8-1.0); MONOCYTES % (AUTO) 3.4 % (1.7-9.3); NEUTROPHILS # (AUTO) 9.5 K/uL (1.8-7.7); NEUTROPHILS % (AUTO) 80.1 % (42.2-75.2); PLATELET COUNT (AUTO) 347 K/uL (140-450); RED BLOOD CELL COUNT(AUTO) 5.19 MIL/uL (4.20-6.10); RED CELL DISTRIBUTION WIDTH 13.8 % (11.6-13.7); WHITE BLOOD COUNT (AUTO) 11.9 K/uL (4.8-10.8)
[2023-10-04] MEDS: BLOOD GLUCOSE MONITORING 1 DEV DEV FS SCH ×4 (07:18→22:29)
[2023-10-04] MEDS: INSULIN LISPRO SLIDING SCALE 100 UNITS/ML VIAL SUBQ PRN ×3 (07:58→16:17)
[2023-10-04] MEDS: methylPREDNISolone SS 125 MG/2 ML VIAL IVP SCH ×2 (09:09→23:28)
[2023-10-04] MEDS: metFORMIN 850 MG TAB PO SCH ×2 (09:09→16:18)
[2023-10-04] MEDS: AZITHROMYCIN 250 MG in DEXTROSE 5% 250 ML IV SCH (13:09)
[2023-10-04] MEDS ORDERED: guaiFENesin 20 MG/ML UDC PO PRN (15:00)
[2023-10-04] MEDS: guaiFENesin 20 MG/ML UDC PO PRN (15:31)
[2023-10-04] MEDS: BUDESONIDE 0.5 MG/2 ML NEBU INH SCH ×2 (21:00→21:57)
[2023-10-04] MEDS: ALBUTEROL SULFATE/IPRATROPIU 3 ML SOL IH PRN (22:04)
[2023-10-04] MEDS: MONTELUKAST SODIUM 10 MG TAB PO SCH (23:28)
[2023-10-05] MEDS: guaiFENesin 20 MG/ML UDC PO PRN (01:36)
[2023-10-05 04:00] VITALS: BP 118/60; PULSE 95; RESP 20; TEMP 98.4; O2SAT 95
[2023-10-05] MEDS: BLOOD GLUCOSE MONITORING 1 DEV DEV FS SCH ×4 (06:52→20:43)
[2023-10-05] MEDS: INSULIN LISPRO SLIDING SCALE 100 UNITS/ML VIAL SUBQ PRN ×3 (07:16→16:34)
[2023-10-05 07:28] LABS: BASOPHILS % (AUTO) 0.1 % (0.0-2.0); EOSINOPHILS % (AUTO) 0.1 % (0.0-4.0); HEMATOCRIT 38.8 % (36-52); HEMOGLOBIN 12.7 g/dL (12.0-18.0); LYMPHOCYTES # (AUTO) 1.6 K/uL (2.0-11.5); LYMPHOCYTES % (AUTO) 14.8 % (20.5-51.1); MEAN CORPUSCULAR HEMOGLOBIN 26 pg (27-31); MEAN CORPUSCULAR HGB CONC 33 g/dL (33-37); MEAN CORPUSCULAR VOLUME 77.8 fL (80-94); MONOCYTES # (AUTO) 0.3 K/uL (0.8-1.0); MONOCYTES % (AUTO) 2.5 % (1.7-9.3); NEUTROPHILS # (AUTO) 8.8 K/uL (1.8-7.7); NEUTROPHILS % (AUTO) 82.5 % (42.2-75.2); PLATELET COUNT (AUTO) 309 K/uL (140-450); RED BLOOD CELL COUNT(AUTO) 4.99 MIL/uL (4.20-6.10); RED CELL DISTRIBUTION WIDTH 13.9 % (11.6-13.7); WHITE BLOOD COUNT (AUTO) 10.7 K/uL (4.8-10.8)
[2023-10-05 07:49] VITALS: PULSE 83; RESP 18; O2SAT 95
[2023-10-05] MEDS: ALBUTEROL SULFATE/IPRATROPIU 3 ML SOL IH PRN (07:49)
[2023-10-05] MEDS: BUDESONIDE 0.5 MG/2 ML NEBU INH SCH ×2 (07:49→20:23)
[2023-10-05 07:50] LABS: ANION GAP 15.4 (8-16); CALCIUM 9.1 mg/dL (8.5-10.1); CARBON DIOXIDE 25.6 mmol/L (21-32); CREATININE 0.6 mg/dL (0.6-1.3)
[2023-10-05 08:00] VITALS: BP 115/71; PULSE 90; RESP 18; TEMP 97.4; O2SAT 95
[2023-10-05] MEDS: metFORMIN 850 MG TAB PO SCH ×2 (08:28→16:35)
[2023-10-05] MEDS: methylPREDNISolone SS 125 MG/2 ML VIAL IVP SCH ×2 (08:59→22:30)
[2023-10-05] MEDS: AZITHROMYCIN 250 MG in DEXTROSE 5% 250 ML IV SCH (12:11)
[2023-10-05 20:00] VITALS: BP 97/58; PULSE 83; RESP 22; TEMP 96.9; O2SAT 95
[2023-10-05 20:24] VITALS: PULSE 79; RESP 18; O2SAT 95
[2023-10-05] MEDS: MONTELUKAST SODIUM 10 MG TAB PO SCH (20:44)
[2023-10-06 04:00] VITALS: BP 92/51; PULSE 85; RESP 20; TEMP 97; O2SAT 95
[2023-10-06] MEDS: BLOOD GLUCOSE MONITORING 1 DEV DEV FS SCH (06:30)
[2023-10-06] MEDS: INSULIN LISPRO SLIDING SCALE 100 UNITS/ML VIAL SUBQ PRN (06:32)
[2023-10-06 06:35] LABS: BASOPHILS % (AUTO) 0.2 % (0.0-2.0); EOSINOPHILS % (AUTO) 0.1 % (0.0-4.0); HEMATOCRIT 41.4 % (36-52); HEMOGLOBIN 13.6 g/dL (12.0-18.0); LYMPHOCYTES # (AUTO) 2.1 K/uL (2.0-11.5); LYMPHOCYTES % (AUTO) 19.8 % (20.5-51.1); MEAN CORPUSCULAR HEMOGLOBIN 25 pg (27-31); MEAN CORPUSCULAR HGB CONC 33 g/dL (33-37); MEAN CORPUSCULAR VOLUME 77.4 fL (80-94); MONOCYTES # (AUTO) 0.6 K/uL (0.8-1.0); MONOCYTES % (AUTO) 5.4 % (1.7-9.3); NEUTROPHILS # (AUTO) 8.1 K/uL (1.8-7.7); NEUTROPHILS % (AUTO) 74.5 % (42.2-75.2); PLATELET COUNT (AUTO) 332 K/uL (140-450); RED BLOOD CELL COUNT(AUTO) 5.36 MIL/uL (4.20-6.10); RED CELL DISTRIBUTION WIDTH 13.6 % (11.6-13.7); WHITE BLOOD COUNT (AUTO) 10.8 K/uL (4.8-10.8)
[2023-10-06 08:00] VITALS: BP 96/60; PULSE 73; RESP 18; TEMP 97.3; O2SAT 93; O2SAT 95
[2023-10-06 08:09] LABS: ANION GAP 15.1 (8-16); CALCIUM 9.3 mg/dL (8.5-10.1); CREATININE 0.5 mg/dL (0.6-1.3); POTASSIUM 4.1 mmol/L (3.5-5.1)
[2023-10-06 08:22] VITALS: PULSE 74; RESP 20; O2SAT 94
[2023-10-06] MEDS: BUDESONIDE 0.5 MG/2 ML NEBU INH SCH (08:22)
[2023-10-06] MEDS: metFORMIN 850 MG TAB PO SCH (08:34)
[2023-10-06] MEDS ORDERED: METH4TAB1 PO (10:11)
[2023-10-06] MEDS ORDERED: AZIT250T4 PO (10:11)
[2023-10-06] MEDS: methylPREDNISolone SS 125 MG/2 ML VIAL IVP SCH (10:23)
== END 2023-10-06 10:42 | disposition home or self-care (01) | DRG 133 ==
LOC: MED 02:29 → MMU 06:11 → MTU 18:43
PROVIDERS: ADMIT General Practice; ATTEND General Practice
DX: J96.00 Acute respiratory failure, unspecified whether with hypoxia or hypercapnia (principal); R65.10 Systemic inflammatory response syndrome (SIRS) of non-infectious origin without acute organ dysfunction; J45.901 Unspecified asthma with (acute) exacerbation; Z99.81 Dependence on supplemental oxygen; E11.65 Type 2 diabetes mellitus with hyperglycemia; Z79.4 Long term (current) use of insulin
CPT/HCPCS: 36415; 71045; 80048; 82948; 83036; 83735; 85025; 87081; 94640; 99285; J0456; J1815; J2930; J3475; J7060; J7512; J7626; Q0092

== ENCOUNTER 2023-10-17 18:10 | Inpatient (IN) | payer MEDICAID ==
[~2023-10-17] VITALS: Ht 162.6 cm; Wt 86.2 kg
[2023-10-17] MEDS: ALBUTEROL SULFATE/IPRATROPIU 3 ML SOL IH SCH (00:12)
[~2023-10-17 18:10] MED LIST changes: +AZIT250T4 PO; -DEC4 PO
[2023-10-17 18:20] VITALS: BP 149/81; PULSE 125; RESP 22; TEMP 98; O2SAT 91
[2023-10-17 18:48] VITALS: O2SAT 91
[2023-10-17] MEDS ORDERED: ALBUTEROL SULFATE/IPRATROPIU 3 ML SOL IH ONE ×7 (18:55→19:40)
[2023-10-17 18:59] VITALS: PULSE 115; RESP 24; O2SAT 92
[2023-10-17] MEDS ORDERED: methylPREDNISolone SS 125 MG/2 ML VIAL IVP ONE (19:00)
[2023-10-17] MEDS ORDERED: MAG SULF 2000 MG/WATER PREMIX 50 ML IV ONE (19:00)
[2023-10-17 19:36] VITALS: O2SAT 93
[2023-10-17] MEDS ORDERED: WATER STERILE 10 ML MC ONE (19:54)
[2023-10-17] MEDS ORDERED: methylPREDNISolone SS 125 MG/2 ML VIAL ONE (19:54)
[2023-10-17] MEDS ORDERED: methylPREDNISolone SS 125 MG in WATER STERILE 2 ML IM ONE (19:55)
[2023-10-17 20:30] LABS: BASOPHILS % (AUTO) 0.4 % (0.0-2.0); EOSINOPHILS % (AUTO) 8.9 % (0.0-4.0); HEMATOCRIT 42.1 % (36-52); HEMOGLOBIN 13.9 g/dL (12.0-18.0); MEAN CORPUSCULAR HEMOGLOBIN 26 pg (27-31); MEAN CORPUSCULAR HGB CONC 33 g/dL (33-37); MEAN CORPUSCULAR VOLUME 78.2 fL (80-94); MONOCYTES # (AUTO) 0.8 K/uL (0.8-1.0); MONOCYTES % (AUTO) 7.2 % (1.7-9.3); NEUTROPHILS # (AUTO) 8.1 K/uL (1.8-7.7); NEUTROPHILS % (AUTO) 74.5 % (42.2-75.2); PLATELET COUNT (AUTO) 313 K/uL (140-450); RED BLOOD CELL COUNT(AUTO) 5.38 MIL/uL (4.20-6.10); RED CELL DISTRIBUTION WIDTH 14.1 % (11.6-13.7); WHITE BLOOD COUNT (AUTO) 10.9 K/uL (4.8-10.8)
[2023-10-17 21:03] LABS: ALBUMIN 3.6 g/dL (3.4-5.0); ANION GAP 13.2 (8-16); CALCIUM 9.2 mg/dL (8.5-10.1); CARBON DIOXIDE 27.6 mmol/L (21-32); CREATININE 0.6 mg/dL (0.6-1.3); POTASSIUM 3.8 mmol/L (3.5-5.1); TOTAL PROTEIN, SERUM 8.8 g/dL (6.4-8.2)
[2023-10-17 21:36] VITALS: O2SAT 99
[2023-10-17] MEDS ORDERED: MORPHINE SULFATE 4 MG/ML SYR IVP PRN (22:00)
[2023-10-17] MEDS ORDERED: ALBUTEROL SULFATE/IPRATROPIU 3 ML SOL IH PRN (22:00)
[2023-10-17] MEDS ORDERED: HYDROcodone/APAP 5/325 MG 1 TAB TAB PO PRN (22:00)
[2023-10-17] MEDS ORDERED: ACETAMINOPHEN 325 MG TAB PO PRN ×2 (22:00→22:05)
[2023-10-17] MEDS: AZITHROMYCIN 500 MG in DEXTROSE 5% 250 ML IV SCH (22:00)
[2023-10-17 22:01] LABS: FLU A ANTIGEN negative (NEGATIVE); FLU B ANTIGEN negative (NEGATIVE)
[2023-10-17] MEDS ORDERED: MAG SULF 2000 MG/WATER PREMIX 50 ML IV PRN (22:05)
[2023-10-17] MEDS ORDERED: ONDANSETRON 4 MG/2 ML VIAL IVP PRN (22:05)
[2023-10-17] MEDS ORDERED: ZOLPIDEM 10 MG TAB PO PRN (22:05)
[2023-10-17] MEDS ORDERED: POTASSIUM CHLORIDE 10 MEQ TABER PO PRN (22:05)
[2023-10-17] MEDS ORDERED: AZITHROMYCIN 500 MG INJ VIAL IV ONE (23:55)
[2023-10-18] VITALS (18 sets, daily range): BP systolic 103–129; BP diastolic 55–80; PULSE 67–117; RESP 17–25; TEMP 97–98.3; O2SAT 91–98
[2023-10-18] MEDS: ALBUTEROL SULFATE/IPRATROPIU 3 ML SOL IH SCH ×6 (03:28→23:43)
[2023-10-18 04:54] LABS: BLOOD GAS PCO2 41.7 mmHg (35-45); BLOOD GAS PH 7.341 (7.35-7.45); BLOOD GAS PO2 107.1 mmHg (75-100)
[2023-10-18 04:55] LABS: BLOOD GAS BASE EXCESS -3.5 mmol/L (-2.0-2.0); BLOOD GAS O2 SAT% 98.3 % (92.0-98.5)
[2023-10-18] MEDS ORDERED: methylPREDNISolone SS 40 MG in WATER STERILE 1 ML IV SCH (05:00)
[2023-10-18 05:38] LABS: EOSINOPHILS % (AUTO) 0.1 % (0.0-4.0); HEMATOCRIT 39.7 % (36-52); HEMOGLOBIN 13.1 g/dL (12.0-18.0); LYMPHOCYTES # (AUTO) 0.4 K/uL (2.0-11.5); LYMPHOCYTES % (AUTO) 4.5 % (20.5-51.1); MEAN CORPUSCULAR HEMOGLOBIN 26 pg (27-31); MEAN CORPUSCULAR HGB CONC 33 g/dL (33-37); MONOCYTES # (AUTO) 0.1 K/uL (0.8-1.0); MONOCYTES % (AUTO) 0.7 % (1.7-9.3); NEUTROPHILS # (AUTO) 8.5 K/uL (1.8-7.7); NEUTROPHILS % (AUTO) 94.7 % (42.2-75.2); PLATELET COUNT (AUTO) 308 K/uL (140-450); RED BLOOD CELL COUNT(AUTO) 5.09 MIL/uL (4.20-6.10)
[2023-10-18 05:56] LABS: ALBUMIN 3.4 g/dL (3.4-5.0); ANION GAP 15.7 (8-16); CALCIUM 9.8 mg/dL (8.5-10.1); CARBON DIOXIDE 25.3 mmol/L (21-32); CREATININE 0.8 mg/dL (0.6-1.3); TOTAL BILIRUBIN 1.2 mg/dL (0.0-1.0); TOTAL PROTEIN, SERUM 8.7 g/dL (6.4-8.2)
[2023-10-18] MEDS ORDERED: methylPREDNISolone SS 40 MG/ML VIAL ONE (06:07)
[2023-10-18] MEDS ORDERED: WATER STERILE 10 ML MC ONE (06:07)
[2023-10-18] MEDS: PANTOPRAZOLE 40 MG TABEC PO SCH (10:37)
[2023-10-18] MEDS ORDERED: DEXTROSE 50% 50 ML SYR IVP PRN (12:00)
[2023-10-18] MEDS: methylPREDNISolone SS 40 MG/ML VIAL IVP SCH ×2 (13:00→20:43)
[2023-10-18] MEDS: BLOOD GLUCOSE MONITORING 1 DEV DEV FS SCH ×2 (16:30→20:34)
[2023-10-18] MEDS: INSULIN LISPRO SLIDING SCALE 100 UNITS/ML VIAL SUBQ PRN ×2 (17:47→20:36)
[2023-10-18] MEDS: INSULIN LANTUS 100 UNITS/ML 10 ML VIAL SUBQ SCH (20:38)
[2023-10-18] MEDS: MONTELUKAST SODIUM 10 MG TAB PO SCH (20:43)
[2023-10-18] MEDS: AZITHROMYCIN 500 MG in DEXTROSE 5% 250 ML IV SCH (22:49)
[2023-10-19] VITALS (13 sets, daily range): BP systolic 105–111; BP diastolic 62–69; PULSE 72–92; RESP 17–23; TEMP 97.2–97.9; O2SAT 95–100
[2023-10-19] MEDS: ALBUTEROL SULFATE/IPRATROPIU 3 ML SOL IH SCH ×5 (03:45→23:12)
[2023-10-19] MEDS: methylPREDNISolone SS 40 MG/ML VIAL IVP SCH ×3 (05:11→20:32)
[2023-10-19] MEDS: BLOOD GLUCOSE MONITORING 1 DEV DEV FS SCH ×4 (06:50→20:26)
[2023-10-19] MEDS: INSULIN LISPRO SLIDING SCALE 100 UNITS/ML VIAL SUBQ PRN ×4 (06:52→20:28)
[2023-10-19 07:20] LABS: BASOPHILS % (AUTO) 0.1 % (0.0-2.0); EOSINOPHILS % (AUTO) 0.1 % (0.0-4.0); HEMATOCRIT 37.5 % (36-52); HEMOGLOBIN 12.4 g/dL (12.0-18.0); LYMPHOCYTES # (AUTO) 0.8 K/uL (2.0-11.5); LYMPHOCYTES % (AUTO) 7.6 % (20.5-51.1); MEAN CORPUSCULAR HEMOGLOBIN 26 pg (27-31); MEAN CORPUSCULAR HGB CONC 33 g/dL (33-37); MEAN CORPUSCULAR VOLUME 77.7 fL (80-94); MONOCYTES # (AUTO) 0.5 K/uL (0.8-1.0); MONOCYTES % (AUTO) 5.1 % (1.7-9.3); NEUTROPHILS # (AUTO) 8.8 K/uL (1.8-7.7); NEUTROPHILS % (AUTO) 87.1 % (42.2-75.2); PLATELET COUNT (AUTO) 309 K/uL (140-450); RED BLOOD CELL COUNT(AUTO) 4.83 MIL/uL (4.20-6.10); RED CELL DISTRIBUTION WIDTH 14.1 % (11.6-13.7); WHITE BLOOD COUNT (AUTO) 10.1 K/uL (4.8-10.8)
[2023-10-19 07:50] LABS: ANION GAP 10.9 (8-16); CALCIUM 9.2 mg/dL (8.5-10.1); CARBON DIOXIDE 27.5 mmol/L (21-32); CREATININE 0.6 mg/dL (0.6-1.3); POTASSIUM 4.4 mmol/L (3.5-5.1)
[2023-10-19] MEDS: PANTOPRAZOLE 40 MG TABEC PO SCH (10:45)
[2023-10-19] MEDS: INSULIN LANTUS 100 UNITS/ML 10 ML VIAL SUBQ SCH (20:30)
[2023-10-19] MEDS: MONTELUKAST SODIUM 10 MG TAB PO SCH (20:31)
[2023-10-19] MEDS: AZITHROMYCIN 500 MG in DEXTROSE 5% 250 ML IV SCH (22:20)
[2023-10-20] VITALS (11 sets, daily range): BP systolic 98–114; BP diastolic 63–85; PULSE 78–93; RESP 15–20; TEMP 97.1–98.2; O2SAT 93–100
[2023-10-20] MEDS: ALBUTEROL SULFATE/IPRATROPIU 3 ML SOL IH SCH ×6 (03:43→22:28)
[2023-10-20] MEDS: methylPREDNISolone SS 40 MG/ML VIAL IVP SCH (05:22)
[2023-10-20] MEDS: BLOOD GLUCOSE MONITORING 1 DEV DEV FS SCH ×4 (06:20→21:08)
[2023-10-20] MEDS: INSULIN LISPRO SLIDING SCALE 100 UNITS/ML VIAL SUBQ PRN ×3 (06:22→21:17)
[2023-10-20 07:19] LABS: BASOPHILS % (AUTO) 0.2 % (0.0-2.0); EOSINOPHILS % (AUTO) 0.1 % (0.0-4.0); HEMATOCRIT 37.8 % (36-52); HEMOGLOBIN 12.5 g/dL (12.0-18.0); LYMPHOCYTES # (AUTO) 1.1 K/uL (2.0-11.5); LYMPHOCYTES % (AUTO) 9.9 % (20.5-51.1); MEAN CORPUSCULAR HEMOGLOBIN 26 pg (27-31); MEAN CORPUSCULAR HGB CONC 33 g/dL (33-37); MEAN CORPUSCULAR VOLUME 77.9 fL (80-94); MONOCYTES # (AUTO) 0.8 K/uL (0.8-1.0); MONOCYTES % (AUTO) 7.7 % (1.7-9.3); NEUTROPHILS # (AUTO) 8.9 K/uL (1.8-7.7); NEUTROPHILS % (AUTO) 82.1 % (42.2-75.2); PLATELET COUNT (AUTO) 318 K/uL (140-450); RED BLOOD CELL COUNT(AUTO) 4.86 MIL/uL (4.20-6.10); RED CELL DISTRIBUTION WIDTH 14.5 % (11.6-13.7); WHITE BLOOD COUNT (AUTO) 10.8 K/uL (4.8-10.8)
[2023-10-20 07:43] LABS: ANION GAP 13.7 (8-16); CALCIUM 9.3 mg/dL (8.5-10.1); CARBON DIOXIDE 27.4 mmol/L (21-32); CREATININE 0.6 mg/dL (0.6-1.3); POTASSIUM 4.1 mmol/L (3.5-5.1)
[2023-10-20] MEDS: PANTOPRAZOLE 40 MG TABEC PO SCH (09:12)
[2023-10-20] MEDS: guaiFENesin 20 MG/ML UDC PO PRN ×2 (12:25→21:24)
[2023-10-20] MEDS: MONTELUKAST SODIUM 10 MG TAB PO SCH (21:09)
[2023-10-20] MEDS: INSULIN LANTUS 100 UNITS/ML 10 ML VIAL SUBQ SCH (21:19)
[2023-10-20] MEDS: AZITHROMYCIN 500 MG in DEXTROSE 5% 250 ML IV SCH (22:04)
[2023-10-21 03:38] VITALS: PULSE 84; RESP 16; O2SAT 98
[2023-10-21] MEDS: ALBUTEROL SULFATE/IPRATROPIU 3 ML SOL IH SCH ×2 (03:38→08:32)
[2023-10-21 06:45] LABS: BASOPHILS % (AUTO) 0.1 % (0.0-2.0); EOSINOPHILS # (AUTO) 0.1 K/uL (0-0.4); EOSINOPHILS % (AUTO) 1.2 % (0.0-4.0); HEMOGLOBIN 13.3 g/dL (12.0-18.0); LYMPHOCYTES # (AUTO) 2.4 K/uL (2.0-11.5); LYMPHOCYTES % (AUTO) 32.2 % (20.5-51.1); MEAN CORPUSCULAR HEMOGLOBIN 26 pg (27-31); MEAN CORPUSCULAR HGB CONC 32 g/dL (33-37); MEAN CORPUSCULAR VOLUME 78.6 fL (80-94); MONOCYTES # (AUTO) 1.1 K/uL (0.8-1.0); MONOCYTES % (AUTO) 14.6 % (1.7-9.3); NEUTROPHILS # (AUTO) 3.8 K/uL (1.8-7.7); NEUTROPHILS % (AUTO) 51.9 % (42.2-75.2); PLATELET COUNT (AUTO) 274 K/uL (140-450); RED BLOOD CELL COUNT(AUTO) 5.22 MIL/uL (4.20-6.10); RED CELL DISTRIBUTION WIDTH 14.3 % (11.6-13.7); WHITE BLOOD COUNT (AUTO) 7.3 K/uL (4.8-10.8)
[2023-10-21 07:00] LABS: ANION GAP 12.5 (8-16); CALCIUM 9.5 mg/dL (8.5-10.1); CREATININE 0.8 mg/dL (0.6-1.3); POTASSIUM 3.5 mmol/L (3.5-5.1)
[2023-10-21] MEDS: BLOOD GLUCOSE MONITORING 1 DEV DEV FS SCH (07:23)
[2023-10-21] MEDS: INSULIN LISPRO SLIDING SCALE 100 UNITS/ML VIAL SUBQ PRN (07:26)
[2023-10-21 08:00] VITALS: BP 100/67; PULSE 82; RESP 18; TEMP 96.7; O2SAT 96
[2023-10-21] MEDS: PANTOPRAZOLE 40 MG TABEC PO SCH (08:10)
[2023-10-21 08:33] VITALS: PULSE 79; RESP 16; O2SAT 97
[2023-10-21] MEDS ORDERED: predniSONE 20 MG TAB PO SCH (09:00)
[2023-10-21] MEDS ORDERED: AZIT250T4 PO (10:17)
[2023-10-21] MEDS ORDERED: METH4TAB1 PO (10:17)
[2023-10-21 11:30] VITALS: BP 100/67; PULSE 82; RESP 18; TEMP 96.7
== END 2023-10-21 12:26 | disposition home or self-care (01) | DRG 133 ==
LOC: MED 18:10 → MTU 22:04
PROVIDERS: ADMIT Family Medicine; ATTEND Family Medicine
PROC: 5A09357 Assistance with Respiratory Ventilation, Less than 24 Consecutive Hours, Continuous Positive Airway Pressure (ICD-10-PCS; principal; 2023-10-17)
PROC: 5A09357 Assistance with Respiratory Ventilation, Less than 24 Consecutive Hours, Continuous Positive Airway Pressure (ICD-10-PCS; 2023-10-18)
PROC: 5A09357 Assistance with Respiratory Ventilation, Less than 24 Consecutive Hours, Continuous Positive Airway Pressure (ICD-10-PCS; 2023-10-19)
PROC: 5A09357 Assistance with Respiratory Ventilation, Less than 24 Consecutive Hours, Continuous Positive Airway Pressure (ICD-10-PCS; 2023-10-20)
DX: J96.01 Acute respiratory failure with hypoxia (principal); J45.902 Unspecified asthma with status asthmaticus; R65.10 Systemic inflammatory response syndrome (SIRS) of non-infectious origin without acute organ dysfunction; J96.02 Acute respiratory failure with hypercapnia; Z20.822 Contact with and (suspected) exposure to COVID-19
CPT/HCPCS: 36415; 36600; 71045; 80048; 80053; 82803; 82948; 85025; 87081; 94640; 94660; 96365; 96366; 96372; 99291; J0456; J1644; J1815; J2270; J2920; J2930; J3475; J7060; J7512; Q0092

== ENCOUNTER 2023-11-13 04:47 | Inpatient (IN) | payer MEDICAID ==
[2023-11-13] VITALS (14 sets, daily range): BP systolic 101–122; BP diastolic 53–73; PULSE 97–116; RESP 14–24; TEMP 97–98.7; O2SAT 81–100
[~2023-11-13] VITALS: Ht 162.6 cm; Wt 86.2 kg
[2023-11-13] MEDS ORDERED: ALBUTEROL 0.083% 2.5 MG/3 ML NEBU INH ONE ×5 (05:05→06:20)
[2023-11-13] MEDS ORDERED: methylPREDNISolone SS 125 MG in WATER STERILE 2 ML IV ONE (05:05)
[2023-11-13] MEDS ORDERED: IPRATROPIUM 0.02% 0.5 MG/2.5 ML NEBU INH ONE ×3 (05:05→06:20)
[2023-11-13] MEDS ORDERED: WATER STERILE 10 ML MC ONE (05:26)
[2023-11-13] MEDS ORDERED: methylPREDNISolone SS 125 MG/2 ML VIAL ONE (05:26)
[2023-11-13 05:37] LABS: FLU A ANTIGEN negative (NEGATIVE); FLU B ANTIGEN NEGATIVE (NEGATIVE)
[2023-11-13] MEDS ORDERED: MAG SULF 2000 MG/WATER PREMIX 50 ML IV ONE ×2 (05:55→06:20)
[2023-11-13 06:34] LABS: BASOPHILS # (AUTO) 0.1 K/uL (0.00-0.22); EOSINOPHILS # (AUTO) 0.9 K/uL (0-0.4); EOSINOPHILS % (AUTO) 9.8 % (0.0-4.0); HEMATOCRIT 39.5 % (36-52); LYMPHOCYTES # (AUTO) 2.1 K/uL (2.0-11.5); LYMPHOCYTES % (AUTO) 22.3 % (20.5-51.1); MEAN CORPUSCULAR HEMOGLOBIN 26 pg (27-31); MEAN CORPUSCULAR HGB CONC 33 g/dL (33-37); MEAN CORPUSCULAR VOLUME 79.3 fL (80-94); MONOCYTES # (AUTO) 0.7 K/uL (0.8-1.0); MONOCYTES % (AUTO) 7.2 % (1.7-9.3); NEUTROPHILS # (AUTO) 5.7 K/uL (1.8-7.7); NEUTROPHILS % (AUTO) 59.7 % (42.2-75.2); PLATELET COUNT (AUTO) 206 K/uL (140-450); RED BLOOD CELL COUNT(AUTO) 4.99 MIL/uL (4.20-6.10); RED CELL DISTRIBUTION WIDTH 14.4 % (11.6-13.7); WHITE BLOOD COUNT (AUTO) 9.5 K/uL (4.8-10.8)
[2023-11-13 06:50] LABS: ALBUMIN 3.3 g/dL (3.4-5.0); ANION GAP 11.1 (8-16); CALCIUM 8.8 mg/dL (8.5-10.1); CREATININE 0.6 mg/dL (0.6-1.3); POTASSIUM 3.1 mmol/L (3.5-5.1); TOTAL BILIRUBIN 0.8 mg/dL (0.0-1.0); TOTAL PROTEIN, SERUM 8.1 g/dL (6.4-8.2)
[2023-11-13] MEDS ORDERED: POTASSIUM CHLORIDE 20% 40 MEQ/15 ML UDC PO ONE (07:30)
[2023-11-13] MEDS ORDERED: MORPHINE SULFATE 4 MG/ML SYR IVP PRN (09:00)
[2023-11-13] MEDS ORDERED: HYDROcodone/APAP 5/325 MG 1 TAB TAB PO PRN (09:00)
[2023-11-13] MEDS ORDERED: ACETAMINOPHEN 325 MG TAB PO PRN (09:00)
[2023-11-13] MEDS ORDERED: AZITHROMYCIN 500 MG INJ VIAL IV ONE (09:26)
[2023-11-13] MEDS: AZITHROMYCIN 500 MG in DEXTROSE 5% 250 ML IV SCH (09:37)
[2023-11-13] MEDS: PANTOPRAZOLE 40 MG TABEC PO SCH (09:38)
[2023-11-13] MEDS: ENOXAPARIN 40 MG/0.4 ML SYR SUBQ SCH (09:39)
[2023-11-13] MEDS ORDERED: MORPHINE SULFATE 2 MG/ML SYR IVP PRN (10:15)
[2023-11-13] MEDS ORDERED: POTASSIUM CHLORIDE 10 MEQ TABER PO PRN (10:50)
[2023-11-13] MEDS ORDERED: MAG SULF 2000 MG/WATER PREMIX 50 ML IV PRN (10:50)
[2023-11-13] MEDS ORDERED: DEXTROSE 50% 50 ML SYR IVP PRN (10:50)
[2023-11-13] MEDS ORDERED: ONDANSETRON 4 MG/2 ML VIAL IVP PRN (10:50)
[2023-11-13] MEDS ORDERED: ZOLPIDEM 10 MG TAB PO PRN (10:50)
[2023-11-13] MEDS: predniSONE 20 MG TAB PO SCH (11:13)
[2023-11-13] MEDS: BLOOD GLUCOSE MONITORING 1 DEV DEV FS SCH ×3 (11:16→22:15)
[2023-11-13] MEDS: INSULIN LISPRO SLIDING SCALE 100 UNITS/ML VIAL SUBQ PRN ×3 (11:18→22:20)
[2023-11-13] MEDS: ALBUTEROL SULFATE/IPRATROPIU 3 ML SOL IH SCH ×4 (11:22→23:13)
[2023-11-13] MEDS: ALBUTEROL SULFATE/IPRATROPIU 3 ML SOL IH PRN ×3 (20:14→22:02)
[2023-11-14] VITALS (9 sets, daily range): BP systolic 93–110; BP diastolic 53–66; PULSE 54–109; RESP 16–20; TEMP 97.6–98.3; O2SAT 93–100
[2023-11-14] MEDS: BENZONATATE 100 MG CAPLF PO PRN ×3 (00:52→21:55)
[2023-11-14] MEDS: ALBUTEROL SULFATE/IPRATROPIU 3 ML SOL IH SCH ×6 (04:16→23:51)
[2023-11-14] MEDS: BLOOD GLUCOSE MONITORING 1 DEV DEV FS SCH ×4 (06:34→22:00)
[2023-11-14 06:43] LABS: BASOPHILS # (AUTO) 0.1 K/uL (0.00-0.22); BASOPHILS % (AUTO) 0.5 % (0.0-2.0); EOSINOPHILS # (AUTO) 0.3 K/uL (0-0.4); EOSINOPHILS % (AUTO) 2.4 % (0.0-4.0); HEMATOCRIT 36.8 % (36-52); HEMOGLOBIN 12.1 g/dL (12.0-18.0); LYMPHOCYTES # (AUTO) 3.5 K/uL (2.0-11.5); LYMPHOCYTES % (AUTO) 33.3 % (20.5-51.1); MEAN CORPUSCULAR HEMOGLOBIN 26 pg (27-31); MEAN CORPUSCULAR HGB CONC 33 g/dL (33-37); MEAN CORPUSCULAR VOLUME 78.8 fL (80-94); MONOCYTES # (AUTO) 0.9 K/uL (0.8-1.0); MONOCYTES % (AUTO) 8.6 % (1.7-9.3); NEUTROPHILS # (AUTO) 5.8 K/uL (1.8-7.7); NEUTROPHILS % (AUTO) 55.2 % (42.2-75.2); PLATELET COUNT (AUTO) 302 K/uL (140-450); RED BLOOD CELL COUNT(AUTO) 4.67 MIL/uL (4.20-6.10); RED CELL DISTRIBUTION WIDTH 14.6 % (11.6-13.7); WHITE BLOOD COUNT (AUTO) 10.4 K/uL (4.8-10.8)
[2023-11-14 06:45] LABS: ANION GAP 11.9 (8-16); CALCIUM 8.7 mg/dL (8.5-10.1); CARBON DIOXIDE 25.6 mmol/L (21-32); CREATININE 0.5 mg/dL (0.6-1.3); POTASSIUM 3.5 mmol/L (3.5-5.1); TOTAL PROTEIN, SERUM 7.6 g/dL (6.4-8.2)
[2023-11-14] MEDS: PANTOPRAZOLE 40 MG TABEC PO SCH (09:04)
[2023-11-14] MEDS: predniSONE 20 MG TAB PO SCH (09:04)
[2023-11-14] MEDS: ENOXAPARIN 40 MG/0.4 ML SYR SUBQ SCH (09:06)
[2023-11-14] MEDS: INSULIN LANTUS 100 UNITS/ML 10 ML VIAL SUBQ SCH (09:07)
[2023-11-14] MEDS: AZITHROMYCIN 500 MG in DEXTROSE 5% 250 ML IV SCH (10:17)
[2023-11-14] MEDS: INSULIN LISPRO SLIDING SCALE 100 UNITS/ML VIAL SUBQ PRN ×2 (11:53→17:01)
[2023-11-15] VITALS (10 sets, daily range): BP systolic 103–110; BP diastolic 60; PULSE 77–94; RESP 16–20; TEMP 97.7–98.6; O2SAT 93–98
[2023-11-15] MEDS: ALBUTEROL SULFATE/IPRATROPIU 3 ML SOL IH SCH ×4 (03:46→16:45)
[2023-11-15] MEDS: BENZONATATE 100 MG CAPLF PO PRN (06:48)
[2023-11-15] MEDS: BLOOD GLUCOSE MONITORING 1 DEV DEV FS SCH ×2 (06:49→12:37)
[2023-11-15] MEDS: INSULIN LISPRO SLIDING SCALE 100 UNITS/ML VIAL SUBQ PRN ×2 (06:52→12:43)
[2023-11-15] MEDS ORDERED: MONTELUKAST SODIUM 10 MG TAB PO SCH (09:00)
[2023-11-15] MEDS: INSULIN LANTUS 100 UNITS/ML 10 ML VIAL SUBQ SCH (09:00)
[2023-11-15] MEDS: AZITHROMYCIN 500 MG in DEXTROSE 5% 250 ML IV SCH (10:37)
[2023-11-15] MEDS: predniSONE 20 MG TAB PO SCH (10:38)
[2023-11-15] MEDS: PANTOPRAZOLE 40 MG TABEC PO SCH (10:38)
[2023-11-15] MEDS: ENOXAPARIN 40 MG/0.4 ML SYR SUBQ SCH (10:40)
[2023-11-15] MEDS ORDERED: AZIT250T4 PO (14:51)
[2023-11-15] MEDS ORDERED: METH4TAB1 PO (14:51)
[2023-11-15] MEDS ORDERED: MONT-72 PO (14:51)
== END 2023-11-15 17:04 | disposition home or self-care (01) | DRG 141 ==
LOC: MED 04:47 → MMU 09:02 → MTU 09:21
PROVIDERS: ADMIT Family Medicine; ATTEND Family Medicine
DX: J45.901 Unspecified asthma with (acute) exacerbation (principal); J96.01 Acute respiratory failure with hypoxia; E44.0 Moderate protein-calorie malnutrition; Z20.822 Contact with and (suspected) exposure to COVID-19; E87.6 Hypokalemia; Z68.32 Body mass index [BMI] 32.0-32.9, adult; E11.65 Type 2 diabetes mellitus with hyperglycemia
CPT/HCPCS: 36415; 71045; 80053; 82948; 85025; 87081; 94640; 94644; 96365; 96375; 99285; J0456; J1650; J1815; J2930; J3475; J7060; J7512; J7613; J7644; Q0092

== ENCOUNTER 2024-01-17 09:30 | Inpatient (IN) | payer MEDICAID ==
[~2024-01-17] VITALS: Ht 162.6 cm; Wt 86.2 kg
[2024-01-17] VITALS (9 sets, daily range): BP systolic 100–128; BP diastolic 66–77; PULSE 74–100; RESP 17–22; TEMP 96.7–98.1; O2SAT 94–99
[2024-01-17] MEDS: ALBUTEROL SULFATE/IPRATROPIU 3 ML SOL IH ONE ×4 (09:50→10:13)
[2024-01-17] MEDS: methylPREDNISolone SS 125 MG/2 ML VIAL IVP ONE (10:19)
[2024-01-17 10:21] LABS: BASOPHILS # (AUTO) 0.1 K/uL (0.00-0.22); EOSINOPHILS # (AUTO) 1.7 K/uL (0-0.4); EOSINOPHILS % (AUTO) 17.7 % (0.0-4.0); HEMATOCRIT 41.4 % (36-52); HEMOGLOBIN 13.8 g/dL (12.0-18.0); LYMPHOCYTES % (AUTO) 21.1 % (20.5-51.1); MEAN CORPUSCULAR HEMOGLOBIN 26 pg (27-31); MEAN CORPUSCULAR HGB CONC 33 g/dL (33-37); MEAN CORPUSCULAR VOLUME 77.6 fL (80-94); MONOCYTES # (AUTO) 0.6 K/uL (0.8-1.0); MONOCYTES % (AUTO) 6.2 % (1.7-9.3); NEUTROPHILS # (AUTO) 5.2 K/uL (1.8-7.7); PLATELET COUNT (AUTO) 252 K/uL (140-450); RED BLOOD CELL COUNT(AUTO) 5.33 MIL/uL (4.20-6.10); WHITE BLOOD COUNT (AUTO) 9.6 K/uL (4.8-10.8)
[2024-01-17 10:35] LABS: ANION GAP 13.4 (8-16); CALCIUM 8.8 mg/dL (8.5-10.1); CARBON DIOXIDE 25.3 mmol/L (21-32); CREATININE 0.6 mg/dL (0.6-1.3); POTASSIUM 3.7 mmol/L (3.5-5.1)
[2024-01-17 10:57] LABS: FLU A ANTIGEN negative (NEGATIVE); FLU B ANTIGEN negative (NEGATIVE)
[2024-01-17] MEDS ORDERED: ACETAMINOPHEN 325 MG TAB PO PRN (12:05)
[2024-01-17] MEDS ORDERED: ZOLPIDEM 5 MG TAB PO PRN (12:05)
[2024-01-17] MEDS ORDERED: ONDANSETRON 4 MG/2 ML VIAL IVP PRN (12:05)
[2024-01-17] MEDS ORDERED: DEXTROSE 50% 50 ML SYR IVP PRN (12:10)
[2024-01-17] MEDS ORDERED: cefTRIAXone 1,000 MG VIAL ONE (12:15)
[2024-01-17] MEDS: AZITHROMYCIN 500 MG in DEXTROSE 5% 250 ML IV ONE (13:06)
[2024-01-17] MEDS ORDERED: AZITHROMYCIN 500 MG INJ VIAL IV ONE (13:08)
[2024-01-17] MEDS ORDERED: INSULIN LISPRO SLIDING SCALE 100 UNITS/ML VIAL SUBQ PRN (14:10)
[2024-01-17] MEDS: MONTELUKAST SODIUM 10 MG TAB PO SCH (14:40)
[2024-01-17] MEDS: BLOOD GLUCOSE MONITORING 1 DEV DEV FS SCH (14:42)
[2024-01-17] MEDS ORDERED: BLOOD GLUCOSE MONITORING 1 DEV DEV FS SCH (16:30)
[2024-01-17] MEDS: methylPREDNISolone SS 40 MG/ML VIAL IVP SCH (17:42)
[2024-01-17] MEDS: INSULIN LISPRO SLIDING SCALE 100 UNITS/ML VIAL SUBQ PRN (17:45)
[2024-01-17] MEDS: ALBUTEROL SULFATE/IPRATROPIU 3 ML SOL IH PRN (20:09)
[2024-01-17] MEDS: INSULIN LANTUS 100 UNITS/ML 10 ML VIAL SUBQ SCH (20:29)
[2024-01-18] VITALS (13 sets, daily range): BP systolic 101–137; BP diastolic 59–76; PULSE 70–116; RESP 18–22; TEMP 97.2–98.8; O2SAT 93–98
[2024-01-18 07:20] LABS: BASOPHILS % (AUTO) 0.1 % (0.0-2.0); EOSINOPHILS % (AUTO) 0.2 % (0.0-4.0); HEMATOCRIT 40.6 % (36-52); HEMOGLOBIN 13.4 g/dL (12.0-18.0); LYMPHOCYTES # (AUTO) 1.3 K/uL (2.0-11.5); LYMPHOCYTES % (AUTO) 10.9 % (20.5-51.1); MEAN CORPUSCULAR HEMOGLOBIN 25 pg (27-31); MEAN CORPUSCULAR HGB CONC 33 g/dL (33-37); MEAN CORPUSCULAR VOLUME 77.1 fL (80-94); MONOCYTES # (AUTO) 0.2 K/uL (0.8-1.0); MONOCYTES % (AUTO) 1.3 % (1.7-9.3); NEUTROPHILS # (AUTO) 10.7 K/uL (1.8-7.7); NEUTROPHILS % (AUTO) 87.5 % (42.2-75.2); PLATELET COUNT (AUTO) 278 K/uL (140-450); RED BLOOD CELL COUNT(AUTO) 5.27 MIL/uL (4.20-6.10); RED CELL DISTRIBUTION WIDTH 14.3 % (11.6-13.7); WHITE BLOOD COUNT (AUTO) 12.2 K/uL (4.8-10.8)
[2024-01-18 08:00] LABS: ALBUMIN 3.4 g/dL (3.4-5.0); ANION GAP 16.6 (8-16); CALCIUM 9.1 mg/dL (8.5-10.1); CARBON DIOXIDE 21.5 mmol/L (21-32); CREATININE 0.4 mg/dL (0.6-1.3); POTASSIUM 4.1 mmol/L (3.5-5.1); TOTAL BILIRUBIN 0.9 mg/dL (0.0-1.0)
[2024-01-18] MEDS: AZITHROMYCIN 250 MG TAB PO SCH (09:25)
[2024-01-18] MEDS: FAMOTIDINE 20 MG TAB PO SCH (09:26)
[2024-01-18] MEDS: BENZONATATE 100 MG CAPLF PO PRN (11:51)
[2024-01-18] MEDS ORDERED: guaiFENesin DM SUGAR FREE 100 MG/5 ML UDBTL PO PRN (19:25)
[2024-01-18] MEDS ORDERED: guaiFENesin 20 MG/ML UDC PO PRN (19:25)
[2024-01-18] MEDS: ALBUTEROL SULFATE/IPRATROPIU 3 ML SOL IH SCH (19:26)
[2024-01-19] VITALS (10 sets, daily range): BP systolic 90–123; BP diastolic 54–75; PULSE 69–112; RESP 16–20; TEMP 96.6–97.6; O2SAT 94–100
[2024-01-19 07:09] LABS: BASOPHILS % (AUTO) 0.1 % (0.0-2.0); EOSINOPHILS % (AUTO) 0.1 % (0.0-4.0); HEMOGLOBIN 13.6 g/dL (12.0-18.0); LYMPHOCYTES # (AUTO) 1.3 K/uL (2.0-11.5); LYMPHOCYTES % (AUTO) 8.8 % (20.5-51.1); MEAN CORPUSCULAR HEMOGLOBIN 26 pg (27-31); MEAN CORPUSCULAR HGB CONC 33 g/dL (33-37); MONOCYTES # (AUTO) 0.3 K/uL (0.8-1.0); MONOCYTES % (AUTO) 1.8 % (1.7-9.3); NEUTROPHILS # (AUTO) 12.9 K/uL (1.8-7.7); NEUTROPHILS % (AUTO) 89.2 % (42.2-75.2); PLATELET COUNT (AUTO) 289 K/uL (140-450); RED BLOOD CELL COUNT(AUTO) 5.32 MIL/uL (4.20-6.10); WHITE BLOOD COUNT (AUTO) 14.4 K/uL (4.8-10.8)
[2024-01-19 07:18] LABS: ALBUMIN 3.4 g/dL (3.4-5.0); ANION GAP 15.2 (8-16); CALCIUM 8.9 mg/dL (8.5-10.1); CARBON DIOXIDE 23.9 mmol/L (21-32); CREATININE 0.6 mg/dL (0.6-1.3); POTASSIUM 4.1 mmol/L (3.5-5.1); TOTAL BILIRUBIN 0.8 mg/dL (0.0-1.0)
[2024-01-19] MEDS ORDERED: AZIT250T4 PO (17:19)
[2024-01-19] MEDS ORDERED: METH4TAB1 PO (17:19)
[2024-01-19] MEDS ORDERED: MONT-72 PO (17:19)
[2024-01-19] MEDS ORDERED: FLUT1DSK2 IH (17:19)
[2024-01-19] MEDS ORDERED: BENZ100C6 PO (17:19)
== END 2024-01-19 18:05 | disposition home or self-care (01) | DRG 720 ==
LOC: MED 09:30 → MTU 12:07
PROVIDERS: ADMIT Student in an Organized Health Care Education/Training Program; ATTEND Student in an Organized Health Care Education/Training Program
DX: A41.9 Sepsis, unspecified organism (principal); J96.01 Acute respiratory failure with hypoxia; J44.0 Chronic obstructive pulmonary disease with (acute) lower respiratory infection; J15.69 Pneumonia due to other Gram-negative bacteria; J44.1 Chronic obstructive pulmonary disease with (acute) exacerbation; J45.901 Unspecified asthma with (acute) exacerbation; E11.9 Type 2 diabetes mellitus without complications; Z20.822 Contact with and (suspected) exposure to COVID-19
CPT/HCPCS: 36415; 71045; 80048; 80053; 82948; 85025; 87081; 87426; 87804; 94010; 94640; 94760; 96374; 96375; 99291; J0456; J0696; J1815; J2920; J2930; J7060

== ENCOUNTER 2024-08-01 06:44 | Inpatient (IN) | payer MEDICAID ==
[2024-08-01] VITALS (8 sets, daily range): BP systolic 146–202; BP diastolic 83–185; PULSE 99–115; RESP 16–28; TEMP 96.2–96.7; O2SAT 87–95
[~2024-08-01] VITALS: Ht 172.7 cm; Wt 88.9 kg
[~2024-08-01 06:44] MED LIST changes: +ALBU10.7; +ATOR20TA40 PO; +BENZ100C6 PO; +DULA0.75 SUBQ; +FERR-15 PO; +FLUT12AE5 INH; +FLUT1BLS15 INH; +FLUT1DSK2 IH; +INSU100I75 SUBQ; +PRED5TAB7 PO; +PRED5TAB8 PO; +SPIMDI PO; +[UNRECOGNIZED DRUG - CODE]
[2024-08-01] MEDS: IPRATROPIUM 0.02% 0.5 MG/2.5 ML NEBU INH ONE (07:02)
[2024-08-01] MEDS: ALBUTEROL 0.083% 2.5 MG/3 ML NEBU INH ONE ×3 (07:02→09:18)
[2024-08-01] MEDS: predniSONE 20 MG TAB PO ONE (07:04)
[2024-08-01 09:26] LABS: BASOPHILS # (AUTO) 0.1 K/uL (0.00-0.22); EOSINOPHILS # (AUTO) 1.3 K/uL (0-0.4); EOSINOPHILS % (AUTO) 11.7 % (0.0-4.0); HEMATOCRIT 44.4 % (36-52); HEMOGLOBIN 14.4 g/dL (12.0-18.0); LYMPHOCYTES # (AUTO) 1.9 K/uL (2.0-11.5); LYMPHOCYTES % (AUTO) 17.5 % (20.5-51.1); MEAN CORPUSCULAR HEMOGLOBIN 25 pg (27-31); MEAN CORPUSCULAR HGB CONC 32 g/dL (33-37); MEAN CORPUSCULAR VOLUME 76.2 fL (80-94); MONOCYTES # (AUTO) 0.5 K/uL (0.8-1.0); MONOCYTES % (AUTO) 4.7 % (1.7-9.3); NEUTROPHILS # (AUTO) 7.2 K/uL (1.8-7.7); NEUTROPHILS % (AUTO) 65.1 % (42.2-75.2); PLATELET COUNT (AUTO) 284 K/uL (140-450); RED BLOOD CELL COUNT(AUTO) 5.82 MIL/uL (4.20-6.10); WHITE BLOOD COUNT (AUTO) 11.1 K/uL (4.8-10.8)
[2024-08-01 09:35] LABS: ANION GAP 12.5 (8-16); CARBON DIOXIDE 25.7 mmol/L (21-32); CREATININE 0.7 mg/dL (0.6-1.3); POTASSIUM 3.2 mmol/L (3.5-5.1)
[2024-08-01 09:44] LABS: LACTIC ACID 1.7 mmol/L (0.4-2.0)
[2024-08-01] MEDS: methylPREDNISolone SS 125 MG/2 ML VIAL IVP ONE (09:57)
[2024-08-01] MEDS: MAG SULF 2000 MG/WATER PREMIX 50 ML IV ONE (10:02)
[2024-08-01 10:08] LABS: FLU A ANTIGEN negative (NEGATIVE); FLU B ANTIGEN NEGATIVE (NEGATIVE)
[2024-08-01] MEDS ORDERED: MAGNESIUM OXIDE 400 MG TAB PO PRN (10:20)
[2024-08-01] MEDS ORDERED: ONDANSETRON 4 MG/2 ML VIAL IVP PRN (10:20)
[2024-08-01] MEDS ORDERED: LORazepam 1 MG TAB PO PRN (10:20)
[2024-08-01] MEDS ORDERED: ACETAMINOPHEN 325 MG TAB PO PRN (10:20)
[2024-08-01] MEDS ORDERED: DEXTROSE 50% 50 ML SYR IVP PRN (10:25)
[2024-08-01 11:28] LABS: BLOOD GAS PCO2 46.9 mmHg (35.0-48.0)
[2024-08-01 11:29] LABS: BLOOD GAS BASE EXCESS -0.8 mmol/L (-2.0-3.0); BLOOD GAS HCO3 25.3 mmol/L (21.0-28.0); BLOOD GAS O2 SAT% 74.1 % (94.0-98.0)
[2024-08-01 11:30] LABS: FRACTIONATED INSPIRED OXYGEN 0.21 % (0.21-100.00)
[2024-08-01] MEDS: BLOOD GLUCOSE MONITORING 1 DEV DEV FS SCH (11:55)
[2024-08-01] MEDS: INSULIN LISPRO SLIDING SCALE 100 UNITS/ML VIAL SUBQ PRN (11:58)
[2024-08-01] MEDS: methylPREDNISolone SS 40 MG/ML VIAL IVP SCH (13:27)
[2024-08-01] MEDS ORDERED: NACL 0.9% 1,000 ML IV ONE (13:40)
[2024-08-01] MEDS: ALBUTEROL SULFATE/IPRATROPIU 3 ML SOL IH SCH (13:51)
[2024-08-01] MEDS: NACL 0.9% 1,000 ML IV SCH (14:13)
[2024-08-01 16:05] LABS: LACTIC ACID 4.5 mmol/L (0.4-2.0)
[2024-08-01] MEDS ORDERED: NACL 0.9% 1,000 ML IV SCH (16:45)
[2024-08-01] MEDS: POTASSIUM CHLORIDE 10 MEQ TABER PO PRN (17:25)
[2024-08-01] MEDS: BUDESONIDE 0.5 MG/2 ML NEBU INH SCH (19:32)
[2024-08-01] MEDS: NACL 0.9% 500 ML IV STA (20:03)
[2024-08-02] VITALS (15 sets, daily range): BP systolic 109–132; BP diastolic 60–74; PULSE 89–118; RESP 16–28; TEMP 96.4–97.4; O2SAT 92–98
[2024-08-02] MEDS: BENZONATATE 100 MG CAPLF PO PRN (00:38)
[2024-08-02] MEDS: ALBUTEROL 0.083% 2.5 MG/3 ML NEBU INH PRN (01:44)
[2024-08-02 05:21] LABS: HEMATOCRIT 38.1 % (36-52); HEMOGLOBIN 12.4 g/dL (12.0-18.0); LYMPHOCYTES # (AUTO) 1.3 K/uL (2.0-11.5); LYMPHOCYTES % (AUTO) 13.7 % (20.5-51.1); MEAN CORPUSCULAR HEMOGLOBIN 25 pg (27-31); MEAN CORPUSCULAR HGB CONC 33 g/dL (33-37); MEAN CORPUSCULAR VOLUME 75.9 fL (80-94); MONOCYTES # (AUTO) 0.2 K/uL (0.8-1.0); MONOCYTES % (AUTO) 2.2 % (1.7-9.3); NEUTROPHILS # (AUTO) 7.7 K/uL (1.8-7.7); NEUTROPHILS % (AUTO) 84.1 % (42.2-75.2); PLATELET COUNT (AUTO) 282 K/uL (140-450); RED BLOOD CELL COUNT(AUTO) 5.03 MIL/uL (4.20-6.10); RED CELL DISTRIBUTION WIDTH 14.7 % (11.6-13.7); WHITE BLOOD COUNT (AUTO) 9.2 K/uL (4.8-10.8)
[2024-08-02 05:47] LABS: ALBUMIN 3.1 g/dL (3.4-5.0); ANION GAP 10.3 (8-16); CALCIUM 8.7 mg/dL (8.5-10.1); CARBON DIOXIDE 26.5 mmol/L (21-32); CREATININE 0.6 mg/dL (0.6-1.3); MAGNESIUM 2.1 mg/dL (1.8-2.4); PHOSPHORUS 3.5 mg/dL (2.5-4.9); POTASSIUM 3.8 mmol/L (3.5-5.1); TOTAL BILIRUBIN 0.8 mg/dL (0.0-1.0); TOTAL PROTEIN, SERUM 6.9 g/dL (6.4-8.2)
[2024-08-02] MEDS: ATORVASTATIN 20 MG TAB PO SCH (09:08)
[2024-08-02] MEDS: AZITHROMYCIN 250 MG TAB PO SCH (09:08)
[2024-08-02] MEDS: MONTELUKAST SODIUM 10 MG TAB PO SCH (09:08)
[2024-08-02] MEDS: INSULIN LANTUS 100 UNITS/ML 10 ML VIAL SUBQ SCH ×2 (09:25→20:14)
[2024-08-02] MEDS: ZOLPIDEM 5 MG TAB PO PRN (20:16)
[2024-08-03] VITALS (9 sets, daily range): BP systolic 112–122; BP diastolic 59–67; PULSE 70–108; RESP 18–20; TEMP 97–98; O2SAT 90–96
[2024-08-03 05:23] LABS: HEMATOCRIT 39.3 % (36-52); HEMOGLOBIN 12.7 g/dL (12.0-18.0); LYMPHOCYTES # (AUTO) 1.3 K/uL (2.0-11.5); LYMPHOCYTES % (AUTO) 9.6 % (20.5-51.1); MEAN CORPUSCULAR HEMOGLOBIN 25 pg (27-31); MEAN CORPUSCULAR HGB CONC 32 g/dL (33-37); MEAN CORPUSCULAR VOLUME 75.8 fL (80-94); MONOCYTES # (AUTO) 0.6 K/uL (0.8-1.0); MONOCYTES % (AUTO) 4.6 % (1.7-9.3); NEUTROPHILS # (AUTO) 11.4 K/uL (1.8-7.7); NEUTROPHILS % (AUTO) 85.8 % (42.2-75.2); PLATELET COUNT (AUTO) 301 K/uL (140-450); RED BLOOD CELL COUNT(AUTO) 5.19 MIL/uL (4.20-6.10); RED CELL DISTRIBUTION WIDTH 14.7 % (11.6-13.7); WHITE BLOOD COUNT (AUTO) 13.3 K/uL (4.8-10.8)
[2024-08-03 05:46] LABS: ALBUMIN 3.2 g/dL (3.4-5.0); ANION GAP 11.3 (8-16); CALCIUM 8.9 mg/dL (8.5-10.1); CARBON DIOXIDE 25.6 mmol/L (21-32); CREATININE 0.6 mg/dL (0.6-1.3); MAGNESIUM 2.3 mg/dL (1.8-2.4); PHOSPHORUS 3.3 mg/dL (2.5-4.9); POTASSIUM 3.9 mmol/L (3.5-5.1); TOTAL BILIRUBIN 0.9 mg/dL (0.0-1.0); TOTAL PROTEIN, SERUM 7.1 g/dL (6.4-8.2)
[2024-08-03] MEDS ORDERED: BUDE1AER2 IH (11:37)
[2024-08-03] MEDS ORDERED: METH4TAB1 PO (11:40)
[2024-08-03] MEDS ORDERED: MUC600 PO (11:40)
[2024-08-05] MEDS ORDERED: MUC600 PO (13:20)
[2024-08-05] MEDS ORDERED: METH4TAB1 PO (13:20)
[2024-08-05] MEDS ORDERED: BUDE1AER2 IH (13:21)
== END 2024-08-03 17:15 | disposition home or self-care (01) | DRG 133 ==
LOC: MED 06:44 → MTU 10:23 → MMU 21:32
PROVIDERS: ADMIT Student in an Organized Health Care Education/Training Program; ATTEND Student in an Organized Health Care Education/Training Program
DX: J96.01 Acute respiratory failure with hypoxia (principal); R65.11 Systemic inflammatory response syndrome (SIRS) of non-infectious origin with acute organ dysfunction; E87.1 Hypo-osmolality and hyponatremia; J45.901 Unspecified asthma with (acute) exacerbation; E11.9 Type 2 diabetes mellitus without complications; Z20.822 Contact with and (suspected) exposure to COVID-19; E87.6 Hypokalemia; Z79.899 Other long term (current) drug therapy; Z79.4 Long term (current) use of insulin; Z79.84 Long term (current) use of oral hypoglycemic drugs
CPT/HCPCS: 36415; 36600; 71045; 80048; 80053; 82803; 82948; 83605; 83735; 84100; 85025; 87040; 87081; 94640; 94644; 96365; 96375; 99291; J1815; J2919; J2920; J3475; J7512; J7613; J7626; J7644